=== PATIENT | female | born 1960 | race Caucasian/White ===

== ENCOUNTER 2018-07-29 13:39 | Outpatient (CLI) | payer OTHER, SELFPAY ==
--- NOTE | 2018-07-29 13:33 | DI.US_ITS ---
SYMPTOMS/DIAGNOSIS: LOCALIZED SWELLING LLL, R22.4, H/O VARICOSE VEINS, SUPERFICIAL THROMBOPHLEBITIS DUPLEX VENOUS ULTRASOUND LEFT LOWER EXTREMITY: The examination is compared with previous examination of 01/19/18 which showed a superficial vein in the lateral calf to contain thrombus. No DVT identified on the previous exam. The findings on today's examination are unchanged with a visible lateral lower leg superficial thrombus and no evidence of deep venous thrombosis of the thigh or leg.
== END 2018-07-29 13:59 ==
PROVIDERS: PCP Nurse Practitioner Primary Care; Visit Provider Nurse Practitioner
DX: R22.42 Localized swelling, mass and lump, left lower limb (principal); I82.812 Embolism and thrombosis of superficial veins of left lower extremity; Z86.718 Personal history of other venous thrombosis and embolism
CPT/HCPCS: 93971

== ENCOUNTER 2018-08-19 00:37 | Outpatient (CLI) | payer OTHER, SELFPAY ==
--- NOTE | 2018-08-19 07:39 | DI.MAMMO_ITS ---
SYMPTOM/DIAGNOSIS: SCREENING, Z12.31, HEALTH MAINTENANCE, Z00.00 MAMMOGRAMS: Mammograms were interpreted according to the usual protocol including computer analysis with CAD system, tomosynthesis and C view imaging. Comparison with prior examinations. Breast density B. No masses or microcalcifications are seen. There is nothing to suggest malignancy. IMPRESSION: Negative mammogram. Routine screening is recommended. Category I. MQSA ASSESSMENT OF FINDINGS: Negative. Category 1. Patient will receive a letter notifying them of these results. BI-RADS category B. There are scattered areas of fibroglandular density.
== END 2018-08-19 00:57 ==
PROVIDERS: PCP Nurse Practitioner Primary Care; Visit Provider Nurse Practitioner
DX: Z12.31 Encounter for screening mammogram for malignant neoplasm of breast (principal); Z00.00 Encounter for general adult medical examination without abnormal findings
CPT/HCPCS: 77063; 77067

== ENCOUNTER 2018-10-14 06:05 | Day surgery (SDC) | payer OTHER, SELFPAY ==
[2018-10-14 06:19] VITALS: BP 126/84; PULSE 85; RESP 16; TEMP 36; O2SAT 97
[2018-10-14] MEDS: Lactated Ringers 1,000 ML 30 ML IV (06:38)
--- NOTE | 2018-10-14 07:17 | W.COLOREPORT ---
Date of service: 10/14/18 Time of Service: 07:30 Colonoscopy Report Date of procedure: 10/14/18 Pre-op diagnosis general: Colon Cancer Screening Post-op diagnosis procedure note: same Procedure: Colonoscopy Surgeon: Misti Machado Anesthesia proc note operative: MAC (Jazmin Dixon, IVORY/ ASA 3) Estimated blood loss (mL): 0 Pathology: none sent Complications: None Disposition: same day Indications: Mrs. Shah is a pleasant 58 year old female who was seen in the office for her first colonoscopy. Risks, benefits and complications have been reviewed. Complications include but are not limited to bleeding, pain, perforation, missed small lesion/polyp, sore throat, aspiration and adverse reaction to the medications. Questions were entertained and answered to their satisfaction and they wished to proceed. No guarantees were given or implied. Prep: Miralax/Dulcolax Procedure Start Time: 07:23 Procedure End Time: 07:45 Retraction Time: 15 minutes Findings: Normal Colonoscopy Procedure Description: After informed consent was obtained the patient was taken to the procedure room and placed in a left decubitous position. Monitors were applied and a time out was done. The patients name, date of , procedure, allergies to medications and metal in their body was reviewed. The patient was then sedated. Once sedated and comfortable a rectal exam was done. External exam was normal. Internal exam revealed a normal sphincter tone and no palpable masses. The scope was then introduced and retro-flexed. No internal hemorrhoids were identified. The scope was then advanced to the cecum without difficulty. The TI and appendiceal orifice were identified. The prep was good. The scope was then slowly retracted over 15 minutes back into the rectum. No polyps were identified. The scope was removed and the patient was woken up and taken back to Same day surgery in stable condition. The patient tolerated the procedure well and there were no immediate complications. Follow up: The patient should follow up in 10 years unless they develop changes in bowel habits or other new gastrointestinal complaints.
--- NOTE | 2018-10-14 07:18 | W.PM.DSUDISC ---
Discharge Plan Disposition Patient Disposition: HOME Condition: Good Discharge Details Reason For Visit: Colon Cancer Screening Attending Provider: Misti Machado Primary Care Provider: Loren Cortez Home Meds and New Rx's Prescriptions: Continued aspirin [Adult Aspirin Regimen] 81 mg tablet,delayed release (DR/EC) 81 mg PO DAILY RF: 0 Discontinued bisacodyl [Dulcolax (bisacodyl)] 5 mg tablet,delayed release (DR/EC) 5 mg PO ONCE Qty: 4 RF: 0 polyethylene glycol 3350 17 gram/dose powder 255 g PO ONCE Qty: 255 RF: 0 Discharge Instructions Instructions: Colonoscopy (DC) Additional Instructions: Findings: Normal Colonoscopy Follow up:10 years Please call if you develop: fevers >101.5 Nausea or Vomiting Abdominal pain that is not transient DAY SURGERY UNIT POST COLONOSCOPY INSTRUCTIONS 1. Because there will be medication in your system for the next 24 hours, you may feel a little sleepy. Your coordination will be affected. Therefore: a. Do not drive or operate dangerous equipment for 24 hours. b. Do not drink alcohol beverages for 24 hours (not even beer). c. Plan to go home and rest for the day. 2. Generally there are no restrictions on your activity after a day or so has gone by, but you may feel a bit fatigued for a few days. 3 After you arrive home you may have a light meal and return to a normal diet as you can tolerate it without feeling sick to your stomach. 4. After surgery, you may feel pain or discomfort. This should be only transient, but if it persists please contact your doctor. 5. If there are any questions regarding the findings of your procedure, please feel free to contact your doctor. 6. If you are unable to contact your doctor with a problem, contact the hospital at [phone]. 7. Continue all your regular medications unless directed otherwise. I understand the above instructions and have no questions. Signature of Patient or Responsible Adult Escort Date/Time Name of Responsible Adult Escort Signature of Nurse Date/Time Activity:: Activity as Tolerated Diet:: As Tolerated Discharge Orders Discharge Orders: Discharge Order (Routine); Ordered 10/14/18 Ordered By: Misti Machado DS: Diagnosis Discharge Diagnosis (1) S/P colonoscopy: Status: Acute
[2018-10-14 08:35] VITALS: BP 104/58; PULSE 65; RESP 16; TEMP 36; O2SAT 98
== END 2018-10-14 09:10 | disposition home or self-care (01) ==
PROVIDERS: PCP Nurse Practitioner; Visit Provider Surgery
PROC: 0DJD8ZZ Inspection of Lower Intestinal Tract, Via Natural or Artificial Opening Endoscopic (ICD-10-PCS; CPT 45378; principal; 2018-10-14 07:30)
DX: Z12.11 Encounter for screening for malignant neoplasm of colon (principal); Z85.820 Personal history of malignant melanoma of skin
CPT/HCPCS: 45378; J2405

== ENCOUNTER 2020-07-23 00:47 | Outpatient (CLI) | payer OTHER, SELFPAY ==
--- NOTE | 2020-07-23 | DI.MAMMO_ITS ---
EXAM: MAMMO SCREENING CLINICAL HISTORY: SCREENING,Z12.31 TECHNIQUE: Mammograms were interpreted according to the usual protocol including computer analysis w [employer] CAD system, tomosynthesis and C-view imaging. COMPARISON: 2010 through 2017 FINDINGS: The breasts are composed of scattered fibroglandular densities, Breast Density category B. No suspicious masses or suspicious microcalcifications are seen. No skin thickening or abnormal axillary lymph nodes are seen. Surgical clips are noted in the left a xilla. There has been no significant change from prior exams. IMPRESSION: BI-RADS Category 1, Negative mammogram Yearly screening mammography is recommended. Breast Density - Category B, scattered fibroglandular densities. A negative radiographic report should not delay biopsy if a dominant or clinically suspicious mass is present. Up to ten percent of cancers are not identified on mammography. A negative report may reinforce clinical impression. Adenosis and dense breasts may obscure an underlying neoplasm. False positive reports average 6 to 10%. Patient will receive a letter notifying them of these results.
== END 2020-07-23 01:07 ==
PROVIDERS: PCP Nurse Practitioner Family; Visit Provider Nurse Practitioner Family
DX: Z12.31 Encounter for screening mammogram for malignant neoplasm of breast (principal)
CPT/HCPCS: 77063; 77067

== ENCOUNTER 2021-01-24 12:21 | Emergency (ER) | payer OTHER, SELFPAY ==
[2021-01-24] VITALS (20 sets, daily range): BP systolic 95–135; BP diastolic 40–75; PULSE 59–69; RESP 15–25; TEMP 36.2–36.4; O2SAT 95–99
--- NOTE | 2021-01-24 12:30 | RT.EKG_ITS ---
APPROVED REPORT Exam: Resting ECG Patient Location: E HR:62 bpm ECG Measurements Heart Rate 62 AXIS NE 123 P 46 QRSd 88 QRS 38 QT 415 T 33 QTc 420 Conclusion Sinus rhythm...normal P axis, V-rate 60- 99 I have reviewed and interpreted ECG and agree with software generated interpretation.
--- NOTE | 2021-01-24 13:04 | ED.GENADUL_ITS ---
Discharge Plan Disposition Patient Disposition: HOME Condition: Stable Discharge Details Clinical Impression: Generalized weakness, Vomiting, Fatigue, COVID-19, Hypokalemia Primary Care Provider: Shana Timmons ED Provider: Nathalie Orozco Home Meds and New Rx's Prescriptions: New ondansetron 4 mg tablet,disintegrating 4 mg PO TID PRN (Reason: nausea and vomiting) Qty: 6 RF: 0 Continued aspirin [Adult Aspirin Regimen] 81 mg tablet,delayed release (DR/EC) 81 mg PO DAILY RF: 0 acetaminophen [Tylenol] 325 mg Tablet 650 RF: 0 Discharge Instructions Instructions: Viral Syndrome (ED), Weakness (ED), Fatigue (ED) Additional Instructions: Drink plenty of fluids and get plenty of rest. Alternate tylenol and motrin as needed and directed for pain. Your prescription has been sent electronically to your pharmacy. Call the pharmacy to make sure your prescription is ready before pickup. Take the prescription as directed. Follow-up with your primary care doctor in 1 week. Return to the emergency department with any worsening or new concerning symptoms. Discharge Data Discharge Date/Time-TO BE ENTERED AT DEPARTURE: 01/24/21 16:17 Discharge Physician: Nathalie Orozco Medical Decision Making 60-year-old female with no significant history with recent diagnosis of COVID-19 8 days ago presents to the ED with weakness, vomiting and generalized fatigue. She denies any fever, cough, chest pain, shortness of breath. Vitals within normal limits on arrival. She is afebrile and appears fatigued but nontoxic. Due to her report of vomiting and weakness, will place an IV, bolus IV fluids, screening labs, Zofran, IV Tylenol and reassess. As she has normal oxygen saturation and has no complaint of shortness of breath, do not see indication for chest x-ray or other imaging. Labs reviewed. Normal white blood cell count. Potassium 2.8, will replete with p.o. and IV. Troponin negative. Patient reassessed and she feels much better and she is requesting to go home. A prescription for Zofran was sent electronically to her pharmacy. Advised to follow up with the primary care doctor for re-evaluation. Usual and customary return precautions given prior to discharge. Medical Records Medical records reviewed: Yes I reviewed the patient's medical records. Lab Data Lab results reviewed: Yes I reviewed the patient's lab results. Labs: Laboratory Tests Range/Units 01/24/21 01/24/21 01/24/21 12:50 12:50 12:50 WBC (4.4-10.8) 10^3/uL 6.73 RBC (3.93-5.22) 10^6/uL 4.25 Hgb (11.2-15.7) g/dL 12.4 Hct (36.0-46.0) % 36.8 MCV (80-95) fL 86.6 MCH (27.0-33.0) pg 29.2 MCHC (32.0-36.0) % 33.7 RDW (11.7-14.6) % 12.3 Plt Count (130-400) 10^3/uL 295 MPV (8.0-11.0) fL 10.9 Immature Gran % 0.0 Neutrophils % 81.0 Lymphocytes % 14.0 Atypical Lymphs % 2 Monocytes % 3.0 Eosinophils % 0.0 Basophils % 0.0 Nucleated RBC % % 0 Absolute Neutrophils (1.2-6.7) 10^3/uL 5.45 Absolute Lymphocytes (1.2-3.4) 10^3/uL 1.08 L Absolute Monocytes (0.1-0.8) 10^3/uL 0.20 Absolute Eosinophils (0.0-0.7) 10^3/uL 0.00 Absolute Basophils (0.0-0.2) 10^3/uL 0.00 RBC Morphology Normal PT (9.3-11.0) sec 10.1 INR (0.9-1.1) 1.0 APTT (21.0-27.5) sec 24.3 Sodium (136-145) mmol/L 138 Potassium (3.5-5.1) mmol/L 2.8 L* Chloride (98-107) mmol/L 100 Carbon Dioxide (21.0-32.0) mmol/L 25.3 Anion Gap (3-11) mmol/L 12.7 H BUN (7-18) mg/dL 15 Creatinine (0.55-1.02) mg/dL 1.1 H Estimated GFR/1.73 m2 (mL/min/1.73m2) 50.67 Glucose (74-106) mg/dL 103 Calcium (8.5-10.1) mg/dL 8.8 Magnesium (1.8-2.4) mg/dL 2.1 Total Bilirubin (0.2-1.0) mg/dL 0.5 AST (15-37) U/L 27 ALT (14-59) U/L 29 Alkaline Phosphatase (46-116) U/L 73 Troponin I (<0.06) ng/mL < 0.05 Total Protein (6.4-8.2) g/dL 7.5 Albumin (3.4-5.0) g/dL 3.2 L HPI General Mode of arrival: ambulatory . Date/Time Provider Initiated Documentation: 01/24/21 12:43 . Limitations to Documentation: no limitations . Information obtained by: patient . HPI Narrative: Pt is a 60yo F diagnosed with COVID-19 last week who presents to the ED w/ a c/o fatigue, generalized weakness and vomiting for the past few days. Pt states she works at a local [employer] and states they do not wear masks while working together and states there was an outbreak of COVID there and she was tested and noted to be positive on 01/16/21. Pt states her first symptoms were fatigue and weakness. She states she has been vomiting a few times daily for the past few days. She denies any known fever, cough, shortness of breath, chest pain, abdominal pain, diarrhea, loss of sense of smell or taste. Pt was brought here by her . Related Data Home Medications Medication Instructions Recorded Confirmed aspirin 81 mg tablet,delayed 81 mg PO DAILY 08/03/18 01/24/21 release acetaminophen [Tylenol] 650 01/24/21 ondansetron 4 mg PO TID PRN #6 tab 01/24/21 Previous Rx's Medication Instructions Recorded ondansetron 4 mg PO TID PRN #6 tab 01/24/21 Allergies Allergy/AdvReac Type Severity Reaction Status Date / Time No Known Allergies Allergy Verified 01/24/21 12:39 General Stated Complaint: GenMedical JOSH: 2 Review of Systems All systems reviewed & are unremarkable except as noted in HPI and below Constitutional Constitutional: Reports as per HPI, Denies chills, Reports fatigue, Denies fever(s), Reports poor appetite and Reports weakness Eyes Eyes: Denies blurry vision ENT Ears, Nose, Mouth, and Throat: Denies dizziness, Denies sore throat and Denies throat swelling Cardiovascular Cardiovascular: Denies chest pain and Denies dyspnea Respiratory Respiratory: Denies cough and Denies dyspnea Gastrointestinal Gastrointestinal: Denies abdominal pain, Denies diarrhea and Reports vomiting Genitourinary Genitourinary: Denies hematuria and Denies dysuria Musculoskeletal Musculoskeletal: Denies back pain and Denies numbness Integumentary/Breasts Skin/Breast: Denies lesions and Denies rash Neurologic Neurologic: Denies dizziness, Denies localized weakness, Denies numbness and Reports weakness Endocrine Endocrine: Reports fatigue Allergic/Immunologic Allergic/Immunologic: Denies throat swelling [facility] Medical History (Updated 01/24/21 @ 15:58 by Nathalie Orozco DO) History of melanoma Obesity Varicose veins of left leg with edema Surgical History (Updated 10/14/18 @ 07:52 by Misti Machado MD) S/P colonoscopy (~10/14/18) Social History (Updated 09/16/18 @ 09:58 by Latha Jacob RN) Smoking/Tobacco Use Status: Never Smoking risk assessment performed?: Yes Alcohol Intake: current Alcohol Intake frequency: holidays/special occasions only Alcohol type: wine Drug use: Never Substance use type: does not use Do you feel safe at home: Yes Do you feel safe in your relationship?: Yes Exam Const General: cooperative and no acute distress HENMT Head: normal to inspection Face and sinus: normal facial exam Eyes General: appearance normal, both eyes and all related structures EOM: EOM intact bilaterally Neck Neck: normal visual inspection and No submandibular swelling Lymphatic: no lymphadenopathy noted Chest Chest: normal inspection of the chest and no tenderness Resp Effort & Inspection: normal respiratory effort and able to speak in complete sentences Auscultation: clear to auscultation bilaterally Cardio Rate: regular rate Rhythm: regular rhythm GI Inspection: normal to inspection Palpation: soft, not firm, not rigid and nontender Auscultation: normal bowel sounds Skin General skin exam: no rashes or lesions noted Neuro General: patient alert, patient awake and patient oriented x3 Cognition: normal cognition Speech: speech normal Motor: muscle tone normal throughout Sensory Exam: no sensory deficits noted Extrem General: normal to inspection, full ROM, capillary refill normal, no calf tenderness bilaterally and no edema Psych Appearance: grossly normal Mental Status: mental status grossly normal Speech and Movement: speech and movement normal Affect: normal affect Course Vital Signs Vital signs: Vital Signs Temperature 97.5 F L 01/24/21 12:34 Pulse 65 01/24/21 12:34 Respiratory Rate 18 01/24/21 12:34 Blood Pressure 105/65 01/24/21 12:34 Pulse Oximetry 97 01/24/21 12:34 Temperature 97.5 F L 01/24/21 12:34 Temperature Source Skin 01/24/21 12:34 Pulse 65 01/24/21 12:34 Respiratory Rate 18 01/24/21 12:34 Respiratory Effort Non-Labored 01/24/21 12:42 Respiratory Depth Normal 01/24/21 12:42 Respiratory Pattern Normal 01/24/21 12:42 Blood Pressure 105/65 01/24/21 12:34 Blood Pressure Position Supine 01/24/21 12:34 Pulse Oximetry 97 01/24/21 12:34 Oxygen Delivery Method Room Air 01/24/21 12:34 Oxygen Flow Rate 0 01/24/21 12:34 Pain Level 0 01/24/21 12:34
[2021-01-24] MEDS: Normal Saline 1,000 ML 1000 ML IV ×2 (13:10→13:49)
[2021-01-24 13:19] LABS: Abs Immature Grans 0.04 10^3/uL (0.0-0.06); HCT 36.8 % (36.0-46.0); HGB 12.4 g/dL (11.2-15.7); MCH 29.2 pg (27.0-33.0); MCHC 33.7 % (32.0-36.0); MCV 86.6 fL (80-95); MPV 10.9 fL (8.0-11.0); Nucleated RBC 0 %; Platelet Count 295 10^3/uL (130-400); RBC 4.25 10^6/uL (3.93-5.22); RDW 12.3 % (11.7-14.6); RDW-SD 39.3 fL; WBC 6.73 10^3/uL (4.4-10.8)
[2021-01-24 13:29] LABS: ALT 29 U/L (14-59); AST 27 U/L (15-37); Albumin 3.2 g/dL (3.4-5.0); Alkaline Phosphatase 73 U/L (46-116); Anion Gap 12.7 mmol/L (3-11); BUN 15 mg/dL (7-18); Bilirubin, Total 0.5 mg/dL (0.2-1.0); CO2 25.3 mmol/L (21.0-32.0); CREATININE 1.1 mg/dL (0.55-1.02); Calcium 8.8 mg/dL (8.5-10.1); Chloride 100 mmol/L (98-107); Estimated GFR 50.67 (mL/min/1.73m2); Glucose 103 mg/dL (74-106); Magnesium 2.1 mg/dL (1.8-2.4); Sodium 138 mmol/L (136-145); Total Protein 7.5 g/dL (6.4-8.2)
[2021-01-24 13:32] LABS: Absolute Lymphocyte Count 1.08 10^3/uL (1.2-3.4); Absolute Neutrophil Count 5.45 10^3/uL (1.2-6.7); Atypical Lymphocytes % 2
[2021-01-24 13:33] LABS: Diff Comment Manual Differential; Potassium 2.8 mmol/L (3.5-5.1); RBC Morphology Normal
[2021-01-24 13:34] LABS: Troponin I < 0.05 ng/mL (<0.06)
[2021-01-24] MEDS: ACETAMINOPHEN 1,000 MG/100 ML BTL 400 MG IVPB (13:49)
[2021-01-24] MEDS: Potassium Chloride 20 MEQ TABCR 40 MEQ PO (13:51)
[2021-01-24 13:53] LABS: PTT Activated 24.3 sec (21.0-27.5); Prothrombin Time 10.1 sec (9.3-11.0)
[2021-01-24] MEDS: POTASSIUM CHLORIDE 20 MEQ/100 ML BAG 50 MEQ IVPB (14:00)
[2021-01-24] MEDS: Ondansetron 4 MG/2 ML VIAL IVP (14:01)
--- NOTE | 2021-01-24 14:53 | NUR.NOTE ---
pt took a anoop Fonseca wellNursing Note:
== END 2021-01-24 16:17 | disposition home or self-care (01) ==
PROVIDERS: Emergency Provider Physician Assistant; PCP Nurse Practitioner Family
DX: U07.1 COVID-19 (principal); R11.10 Vomiting, unspecified; E87.6 Hypokalemia; R53.1 Weakness
CPT/HCPCS: 80053; 93005; 96365; 96375; 99284; 83735; 84484; 85025; 85610; 85730; 93010; J0131; J2405; J3480

== ENCOUNTER 2022-04-03 09:32 | Outpatient (REF) | payer OTHER, SELFPAY ==
--- NOTE | 2022-04-03 08:30 | PAPFT_PTH ---
PATIENT: Rosa Shah LOC: [facility] U#:[id number] AGE/SX: 61/F ROOM: RE04/03/[address]: MILADYS Solitario : 1960 BED: DIS: 04/03/2022 SPEC #: [id number] RECD: 04/03/22 12:02 STATUS: CRESCENCIO REGuido #: [id number] YAHIR: 04/03/22 08:[address]: Kerry Clancy DEPT: [facility] Cytology RECD BY: Raven Baez ENTERED: 04/03/22 12:03 SP TYPE: PAPFT OTHR DR: Shana Timmons Tissues: 1 - CX/ENDOCX FOR PAP SMEARS Procedures: PAP THIN PREP/UVM Screening HPV DNA PROBE Comments: [id number]
== END 2022-04-03 09:33 | disposition home or self-care (01) ==
LOC: LBN 09:32
PROVIDERS: PCP Nurse Practitioner Family; Visit Provider Nurse Practitioner Family
DX: Z12.4 Encounter for screening for malignant neoplasm of cervix (principal)
CPT/HCPCS: 88142; 87624

== ENCOUNTER → 2022-05-08 00:36 | Outpatient (CLI) | payer OTHER, SELFPAY ==
--- OUTSIDE RECORDS SUMMARY | 2022-05-08 01:04 | XMS_ITS | Encounter Summary ---
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 Juan David Coleman MD [facility] Rad Ct Scan Procedures CT Chest Abdomen Pelvis w Contrast (Generic) [facility] HEMATOLOGY/[place] [address] [place] [address] Referral ID Status Reason Start Date Expiration Date Visits V isits Requested Authorized [id number] Closed Specialty 08/09/2020 02/05/2021 1 1 Service Requested Reason for Visit Diagnostic Test (Routine) - Closed Specialty Diagnoses / Procedures Referred By Contact Refer red To Contact Radiology Diagnoses Malignant melanoma of torso excluding breast 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 Juan David Coleman MD [facility] Rad Ct Scan Procedures CT Chest Abdomen Pelvis w Contrast (Generic) [facility] HEMATOLOGY/[place] [address] [place] [address] Referral ID Status Reason Start Date Expiration Date Visits V isits Requested Authorized [id number] Closed Specialty 08/09/2020 02/05/2021 1 1 Service Requested Encounter Details Date Type Department Care Team Description 08/13/[address] Scan at [facility] Juan David Coleman, Malignant melanoma of torso excluding breast; [facility] 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 documented as of this encounter Plan of Treatment Not on filedocumented as of this encounter Procedures Procedure Name Priority Date/Time Associated Diagnosis Comme nts CT CHEST ABDOMEN Routine 08/13/2020 10:19 AM Malignant melanom a Results for this PELVIS W CONTRAST EST of torso excluding proc edure are in (GENERIC) breast the results Metastatic melanoma section. to lymph node documented in this encounter Results CT Chest Abdomen Pelvis w Contrast (Generic) (08/13/2020 10:19 AM EST) Anatomical Region Laterality Modality Abdomen, Pelvis Computed Tomography Specimen (Source) Anatomical Location Collection Method / Collectio n Time Received Time / Laterality Volume Impressions 08/13/2020 10:44 AM EST Stable exam. No evidence of metastasis. Thank you for letting us participate in the care of this patient. For questions regarding this report, please contact e number below. ? Narrative 08/13/2020 10:44 AM EST EXAMINATION: CT CHEST ABDOMEN PELVIS W CONTRAST (GENERIC) CLINICAL HISTORY: Left lower back stage IIIa melanoma with microscopic left axillary lymph node, resected on , last CT scan on 08/14/2019 TECHNIQUE: Helical CT of the chest, abdo men, and pelvis was performed following the intravenous administration of contra st. 104 cc of Omnipaque 350. Oral contrast was administered. COMPARISON: 08/14/2019 FINDINGS: Chest: Lungs and large airways: No pulmonary no dules or areas of airspace consolidation Pleura: No effusion. Heart/vasculature: Normal. Bovine arch. Lymph nodes: No enlarged lymph nodes. St able surgical clips LEFT axilla Mediastinum and nagi: Normal. Abdomen/pelvis: Liver: Normal size and attenuation witho ut lesions. Bile ducts: Nondilated. Gallbladder: No calcified gallstones. No rmal caliber wall. Pancreas: Normal attenuation without angelica norah dilatation. Spleen: Normal. Adrenals: Normal. Kidneys: Symmetric enhancement. No colle cting system obstruction bilaterally. Urinary Bladder: Normal. Vasculature: No aneurysm. Lymph Nodes: ??No enlarged lymph nodes. Bowel: Nondilated, no wall thickening. ? ? Peritoneum and mesentery: No ascites, fr ee air, or loculated fluid collection. No mesenteric inflammation. Abdominal wall: No subcutaneous masses o r nodules Reproductive organs: No adnexal masses Osseous structures: No suspicious lesion s. Procedure Note Gio Denton MD - 08/13/2020Form atting of this note might be different from the original. EXAMINATION: CT CHEST ABDOMEN PELVIS W C ONTRAST (GENERIC) CLINICAL HISTORY: Left lower back stage IIIa melanoma with microscopic left axillary lymph node, resected on , last CT scan on 08/14/2019 TECHNIQUE: Helical CT of the chest, abdo men, and pelvis was performed following the intravenous administration of contra st. 104 cc of Omnipaque 350. Oral contrast was administered. COMPARISON: 08/14/2019 FINDINGS: Chest: Lungs and large airways: No pulmonary no dules or areas of airspace consolidation Pleura: No effusion. Heart/vasculature: Normal. Bovine arch. Lymph nodes: No enlarged lymph nodes. St able surgical clips LEFT axilla Mediastinum and nagi: Normal. Abdomen/pelvis: Liver: Normal size and attenuation witho ut lesions. Bile ducts: Nondilated. Gallbladder: No calcified gallstones. No rmal caliber wall. Pancreas: Normal attenuation without angelica norah dilatation. Spleen: Normal. Adrenals: Normal. Kidneys: Symmetric enhancement. No colle cting system obstruction bilaterally. Urinary Bladder: Normal. Vasculature: No aneurysm. Lymph Nodes: No enlarged lymph nodes. Bowel: Nondilated, no wall thickening. Peritoneum and mesentery: No ascites, fr ee air, or loculated fluid collection. No mesenteric inflammation. Abdominal wall: No subcutaneous masses o r nodules Reproductive organs: No adnexal masses Osseous structures: No suspicious lesion s. IMPRESSION Stable exam. No evidence of metastasis. Thank you for letting us participate in the care of this patient. For questions regarding this report, please contact e number below. 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 Secondary and unspecified malignant neop lasm of lymph nodes, site unspecified documented in this encounter Administered Medications Inactive Administered Medications - up to 3 most recent administrations Medication Order MAR Action Action Date Dose Rate Site iohexoL (Omnipaque) 350 mg/mL Given 08/13/2020 10:15 AM EST 104 mLs solution 0-200 mL 0-200 mL, Intravenous, ONCE PRN, 1 dose, Starting on Wed08/13/20 at 0956, Until Wed08/13/20 at 1015, Per Protocol, Warning Vesicant/Irritant Medication , Radiology Contrast, Routine iohexoL (Omnipaque) 350 mg/mL solution 0-50 Given 08/13/2020 9:56 AM EST 50 mLs mL 0-50 mL, Oral, ONCE PRN, 1 dose, Starting on Wed08/13/20 at 0956, Until Wed08/13/20 at 0956, Per Protocol, Warning Vesicant/Irritant Medication , Radiology Contrast, Routine documented in this encounter Care Teams Wire Steward Relationship Specialty Start Date End Date Loren Cortez APRN PCP - General Family Medicine 05/06/17 [address] [place] [address] documented as of this encounter
--- OUTSIDE RECORDS SUMMARY | 2022-05-08 01:04 | XMS_ITS | Encounter Summary ---
:1960 Author Organization [facility] [place] [address] Care Team Providers Name Role Phone Loren Cortez DIGITAL PRODUCTION ARTIST Primary Care Provider [phone] Encounter Details Date Type Department Care Team Description 08/13/2020 Hospital Encounter Hematology and Maligna nt melanoma of Oncology at [facility] [place] [phone] Social History Tobacco Use Types Packs/Day Years [...] encounter Procedures Procedure Name Priority Date/Time Associated Comments Diagnosis HEMOGRAM STAT 08/13/2020 8:10 AM Malignant melanoma Res ults for this EST of torso excluding procedure are in breast the results section. DIFFERENTIAL, STAT 08/13/2020 8:10 AM Malignant melanoma Re sults for this AUTOMATED EST of torso excluding procedure are in breast the results section. HC CBC,PLT & AUTO DIFF STAT 08/13/2020 8:10 AM Malignant me lanoma EST of torso excluding breast HC VENIPUNCTURE STAT 08/13/2020 8:10 AM Malignant melanoma Results for this EST of torso excluding procedure are in breast the results section. COMPREHENSIVE STAT 08/13/2020 8:10 AM Malignant melanoma Re sults for this METABOLIC PANEL EST of torso excluding proced ure are in (NON-FASTING) breast the results section. documented in this encounter Results (ABNORMAL) Differential, Automated (08/13/2020 8:10 AM EST) [facility] gist Method Time Signature Neutrophils % 48.6 % [facility] Neutr Abs (ANC) 2.46 1.70 - [facility] 6.10 [facility] x10(3)/[facility] LABORATORY Lymphocytes % 44.0 % [facility] Lymphocytes Abs 2.2 0.9 - 3.2 [facility] x10(3)/[facility] LABORATORY Monocytes % 5.0 % [facility] Monocyte Abs 0.2 (L) 0.3 - 0.9 [facility] x10(3)/[facility] LABORATORY Eosinophils % 1.6 % [facility] Eosinophils Abs 0.1 0.0 - 0.4 [facility] x10(3)/[facility] LABORATORY Basophils % 0.6 % [facility] Basophils Abs 0.0 0.0 - 0.1 [facility] x10(3)/[facility] LABORATORY Immature Gran % 0.20 % [facility] Comment: Immature granulocytes(IG's)percentage an d absolute count will include metamyelocytes, myelocytes, and promyelo cytes. Blood smears from CBCs yielding IG's will be scanned manually for concor dance. If this scan disagrees with the automated IG or if promyelocytes are not ed, a manual differential will be performed. Ekaterina Gran Abs 0.01 0.00 - 0.04 x10(3)/[facility] Specimen Anatomical Collection Method Collection Time Receive d Time (Source) Location / / Volume Laterality Blood specimen 08/13/2020 8:10 AM 020 8:19 (specimen) EST AM EST Resulting Agency Comment Spec In Lab Juan David Coleman MD HEMATOLOGY ORDERABLES Performing Organization Address City/State/ZIP Code [place] [address] Hemogram (08/13/2020 8:10 AM EST) athologist Signature WBC 5.0 4.0 - 9.5 [facility] x10(3)/[facility] LABORATORY RBC 4.04 4.00 - [facility] 5.21 [facility] x10(6)/[facility] LABORATORY Hemoglobin 12.1 11.7 - [facility] 15.5 gm/dL [facility] Hematocrit 36.9 35.7 - [facility] 45.8 % [facility] MCV 91.3 82.6 - [facility] 94.4 [facility]OR[facility] MCH 30.0 27.1 - [facility] 32.0 pg [facility] MCHC 32.8 31.7 - [facility] 35.[facility] gm/dL [facility] Platelets 297 145 - 357 [facility] x10(3)/[facility] LABORATORY RDWSD 42.8 37.0 - [facility] 46.0 [facility] LAB[facility] RDWCV 12.8 11.5 - [facility] 14.1 % [facility] MPV 10.2 7.6 - 12.9 [facility] LABORATORY nRBC % Auto 0.0 % [facility] nRBC Abs Auto 0.000 0.000 - [facility] 0.000 [facility] x10(3)/[facility] LABORATORY Specimen Anatomical Collection Method Collection Time Receive d Time (Source) Location / / Volume Laterality Blood specimen 08/13/2020 8:10 AM 020 8:19 (specimen) EST AM EST Resulting Agency Comment Spec In Lab Juan David Coleman MD HEMATOLOGY ORDERABLES Performing Organization Address City/State/ZIP Code Phon e Number [facility] [place] [address] Comprehensive metabolic panel (non-fasting) (08/13/2020 8:10 AM EST) athologist Signature Glucose Lvl 96 65 - 199 [facility] mg/dL [facility] Comment: Diabetes: >=200 mg/dL plus symp toms BUN 14 8 - 18 mg/dL [facility] Creatinine 0.90 0.70 - 1.20 mg/dL [facility] Sodium 143 135 - 145 mmol/L [facility] Potassium 3.7 3.5 - 5.0 mmol/L [facility] Comment: Please note: ??Patients with WBC >100,00 0 may have falsely elevated Potassium levels. ??For accurate Potassium quantif ication in these patients send serum separator tube (gold top) for subsequent determinations. ??Contact the Clinical Chemistry Laboratory if there are any qu estions. Chloride 107 98 - 107 mmol/L [facility] CO2 26 22 - 31 mmol/L [facility] Anion Gap 10 5 - 15 mmol/L [facility] Calcium 9.4 8.5 - 10.5 mg/dL [facility] Total Protein 7.2 6.1 - 8.0 gm/dL [facility] Albumin 4.6 3.2 - 5.2 gm/dL [facility] AST 17 0 - 30 unit/L [facility] ALT 13 0 - 30 unit/L [facility] Alk Phos 83 35 - 105 unit/L [facility] Total Bilirubin 0.4 0.2 - 1.3 mg/dL [facility] Estimated GFR 70 >=60 mL/min/1.73 m?? [facility] Comment: The eGFR was calculated using the CKD-EP I equation. As with all creatinine based estimates of kidney function, eGFR values calculated with the CKD-EPI equation are not accurate in patients wi th acute kidney failure, extremes of body mass or the acutely ill. [email or web address] eGFR 81 >=60 mL/min/1.73 m?? [facility] Comment: The eGFR was calculated using the CKD-EP I equation. As with all creatinine based estimates of kidney function, eGFR values calculated with the CKD-EPI equation are not accurate in patients wi th acute kidney failure, extremes of body mass or the acutely ill. [email or web address] Specimen Anatomical Collection Method Collection Time Receive d Time (Source) Location / / Volume Laterality Blood specimen 08/13/2020 8:10 AM 020 8:19 (specimen) EST AM EST Resulting Agency Comment Spec In Lab Juan David Coleman MD CHEMISTRY ORDERABLES Performing Organization Address City/State/[place] [address] Lactate Dehydrogenase (08/13/2020 8:10 AM EST) P athologist Signature LDH 217 110 - 220 [facility] unit/L [facility] Specimen Anatomical Collection Method Collection Time Receive d Time (Source) Location / / Volume Laterality Blood specimen 08/13/2020 8:10 AM 020 8:19 (specimen) EST AM EST Resulting Agency Comment Spec In Lab Juan David Coleman MD CHEMISTRY ORDERABLES Performing Organization Address City/[facility]/[place] [address] documented in this encounter Visit Diagnoses Diagnosis Malignant melanoma of torso excluding br east documented in this encounter Care Teams Electrical Equipment Technician Relationship Specialty Start Date End Date Loren Cortez APRN PCP - General Family Medicine 05/06/17 [address] [place] [address] documented as of this encounter
--- OUTSIDE RECORDS SUMMARY | 2022-05-08 01:04 | XMS_ITS | Encounter Summary ---
:1960 Author Organization [facility] [place] [address] Care Team Providers Name Role Phone Loren Cortez MARINE Primary Care Provider [phone] Reason for Visit Reason Comments Follow-up Encounter Details Date Type Department Care Team Description 10/20/2018 Office Visit General Surgery at [facility] melanoma, [facility] B, MARINE unspecified site [facility] [address] [place] [facility] [address] [place] [address] [phone] (Wo rk) Social History Tobacco Use Types Packs/Day Years Used Date Never Smoker Smokeless Tobacco: Never Used Alcohol Use Standard Drinks/Week Comments Yes 1 (1 standard drink = 0.6 oz pure alcoho l) Sex Assigned at Date Recorded Not on file documented as of this encounter Progress Notes [facility] APRN - 10/20/2018 11:45 AM EST Surgical Oncology Melanoma FOllow Up Visit Dx: left back melanoma Date of surgery: 06/10/17 Procedure: WLE, tissue transfer, SLNB to left axilla Complications: None Drains: NA Removed: NA Path: 05/06/17 Shave biopsy mid back Malignant Melanoma, superficial spreading type Thickness 1.48 mm. Ulceration was not identified The lesion had 6 mitoses per mm2. Peripheral margin was negative. Deep margin was negative ?? 06/10/17 WLE and SLNB: A. Left mid back melanoma, excision: - Negative for residual melanoma - Dermal scar and procedure site changes B. Left axillary sentinel node #1: - Rare enlarged [id number] intraparenchymal cells suspicious for ??micrometastatic melanoma C. Left axillary sentinel node #2: - One lymph node negative for melanoma (0/1) D. Left axillary sentinel node #3: - One lymph node negative for melanoma (0/1) History of Present Illness: Rosa Shah is here for routine follow up for stage IIIA melanoma. She reports overall doing well since surgery. She has had routine skin exams with Dr Franco but hasn't seen her in a while due to scheduling conflicts. She is followed by Dr Coleman who she sees in February with a PET/CT. No new nodules, lumps or bumps. She did develop a superficial thrombophlebitis on her left LE, seen by vascular, using asa and compression Overall feels well. No new DUMONT, CP, or SOB, cough, abd pain or blood in the stool. No new bony pain or tenderness. PE: Appears well. She has a well-healed incision on the left back. No erythema. No swelling.No nodules or worrisome skin lesions. Left axilla well well healed incision. No seroma. No palpable LNs in the neck, axilla,popliteal or inguinal areas. Left axillary US today: There are two small lymph nodes seen in the left axilla with sonographically benign features. No lymph nodes with sonographically worrisome features are seen. Assessment: Rosa Shah is a 58 y.o. year old female with no significant PMH with malignant melanoma superficial spreading type of the left mid-back, 1.48 mm thickness, non-identifed ulceration, 6 mitoses per mm2 s/p WLE and SLNB which mapped to left axilla with 1+ SLN ([id number] per AJCC TNM staging, 7th edition). Path stage IIIA. No evidence of recurrence on exam or Ultrasound imaging today. We discussed the risk of recurrence and the importance of skin exams and ultrasound surveillance. I educated the patient on self lymph node basin exams as well. Plan: - We will see her in 4 months (February 2019) with surveillance axillary US - Full skin checks by dermatology Q3-6mths - Medical oncology follow up - Dr Coleman (February 2019) - CT/PET imaging per Dr Coleman (February 2019) documented in this encounter Plan of Treatment Not on filedocumented as of this encounter Visit Diagnoses Diagnosis Malignant melanoma, unspecified site documented in this encounter Care Teams Flatwork Ironer Relationship Specialty Start Date End Date Loren Cortez APRN PCP - General Family Medicine 05/06/17 [address] [place] [address] documented as of this encounter
--- OUTSIDE RECORDS SUMMARY | 2022-05-08 01:04 | XMS_ITS | Encounter Summary ---
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 Marley Encarnacion MD [facility] Rad Nuclear Med Procedures PET CT Standard Plus Extremities & Head [facility] HEMATOLOGY/[place] [address] [place] [address] Referral ID Status Reason Start Date Expiration Date Visits V isits Requested Authorized [id number] Denied Specialty 08/17/2018 08/17/2019 1 0 Service Requested Reason for Visit Reason Comments Follow-up Encounter Details Date Type Department Care Team Description 08/09/2018 Office Visit Hematology and Marley Encarnacion Malignant melanoma of torso excluding breast (Primary Dx); Oncology at [facility] Malignant melanoma metastatic to lymph n ode [facility]ug[facility] HEMATOLOGY/ONCOLOG [id number] Y DEPT [phone] [place], [place] [address] Social History Tobacco Use Types Packs/Day Years Used Date Never Smoker Smokeless Tobacco: Never Used Alcohol Use Standard Drinks/Week Comments Yes 1 (1 standard drink = 0.6 oz pure alcoho l) Sex Assigned at Date Recorded Not on file documented as of this encounter Last Filed Vital Signs Vital Sign Reading Time Taken Comments Blood Pressure 133/77 08/09/2018 3:36 PM EST Pulse 70 08/09/2018 3:36 PM EST Temperature 36.9 ??C (98.4 ??F) 08/09/2018 3:36 PM EST Respiratory Rate 18 08/09/2018 3:36 PM EST Oxygen Saturation 96% 08/09/2018 3:36 PM EST Inhaled Oxygen Concentration - - Weight 94 kg (207 lb 3.7 oz) 08/09/2018 3:36 PM EST Height 165.5 cm (5' 5.16) 08/09/2018 3:36 PM EST Body Mass Index 34.32 08/09/2018 3:36 PM EST documented in this encounter Progress Notes Vicky Stanford MD - 08/09/2018 4:00 PM EST Images from the original note were not included. [facility] NOTE REFERING PHYSICIAN: Dr. 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 (1.48 mm, no ulceration, 6 mitotic index ) N1a (1 out of 3 lymph nodes contained several IHC positive cells Melan-A/HMB 45) PATH: BRAF mutation V600E positive CURRENT TX: Active surveillance Status post wide local excision and sentinel lymph node biopsy on 06/10/2017 ONCOLOGIC HX: Lifelong mole on her left lower back In November 2016 Noticed change in color, darker and become elevated Seen by assistant scientist in February 2017, no bleeding no itching No significant change in her activity level, no weight loss Biopsy on 05/06/2017 was consistent with melanoma T2a (1.48 mm, 6 mitosis no ulceration) Wide local excision and sentinel node biopsy on 06/10/2017 revealed N1a (1 out of 3 lymph nodes contained several IHC positive cells Melan-A/HMB 45) The patient was referred to melanoma clinic on 07/09/2017 to discuss follow-up options. PET/CT scan on 08/17/2017 and brain MRI on 08/17/2017 was negative for evidence of metastases Ultrasound on 06/10/2018 was negative for suspicious lymph node Chest abdomen pelvic CT scan on 08/09/2018 was negative for obvious disease recurrence HPI: Mrs. Shah is a 58 years old lady with the above medical history referred to melanoma clinic on 07/09/2017 to discuss follow-up options for her stage IIIa left lower back melanoma. INTERVAL HISTORY: Patient is presenting to the office for follow up and discuss the results of her restaging CT. She noted that she is feeling well overall. However, she had symptoms of another phlebitis in summer(around ) and recently had an US doppler at [facility] which was negative for DVT. She denies any h/o DVTs or trauma to the LE. She has been taking aspirin since the first episode (January- February 2018). She noted that her energy level is alright. 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 Her appetite is good and her weight has increased by 5-7 lbs in the last 6 months. Denies any chest pain, SOB, cough, fever or chills, DUMONT, dizziness, abd pain, nausea/vomiting. . She is following with dermatology and surgery, last seen in January and June 2018 respectively. REVIEW OF SYSTEMS: Constitutional: No weight loss, no fever, no fatigue, No dizziness. No headache. Eyes: Negative, no visual change ENT: No hearing change Cardiovascular: Negative Respiratory: Negative Gastrointestinal: Negative, Genitourinary: Negative Musculoskeletal: No new joint pain Skin: No rashes Neurological: Negative, no focal weakness Psychiatric: stable mood PAST MEDICAL HISTORY: Past Medical History: Diagnosis Date ??? Melanoma 05/06/2017 left lower back ??? Melanoma of back 05/06/2017 ??? Phlebitis of superficial vein of left lower extremity 03/07/2018 Past Surgical History: Procedure Laterality Date ??? LEG SURGERY ??? ORTHOPEDIC SURGERY Age 3 - legs straightened - bilaterally ??? PRO ADJ TISS TRANSFER/REARRANGEMENT ANY AREA 30.1-60 SQCM Left 06/10/2017 ADJACENT TISSUE TRANSFER OR REARRANGEMENT; 30.1 TO 60.0 SQ CM, BACK (WRVU 12.65) performed by Syeda Nair MD at [facility] MAIN OR ??? PRO BX/REMV, LYMPH NODE, DEEP AXILL Left 06/10/2017 BIOPSY OR EXCISION OF LYMPH NODE(S), OPEN, DEEP AXILLARY NODE(S) (WRVU 6.43) performed by Syeda Nair MD at [facility] MAIN OR ??? PRO EXC SKIN MALIG 3.1-4CM TRUNK, ARM, LEG N/A 06/10/2017 EXC MALIGNANT LESION, MINGO 3.1 TO 4.0CM, TRUNK (WRVU 3.17) performed by Syeda Nair MD at [facility] MAIN OR ??? PRO INTRAOP SENTINEL LYMPH ID W/DYE INJECTION N/A 06/10/2017 INTRAOPERATIVE ID (MAPPING) SENTINEL LYMPH NODE,INCLUDES INJECTION (WRVU 2.5) performed by Syeda Nair MD at [facility] MAIN OR ??? TONSILLECTOMY MEDS: No current outpatient medications on file. No current facility-administered medications for this visit. ALLERGY: No Known Allergies FAMILY HX: No melanoma or any type of cancer No family history on file. SOCIAL HX: ETOH: Social Smoking: Never Social History Socioeconomic History ??? Marital status: Spouse name: Not on file ??? Number of children: 1 ??? Years of education: Not on file ??? Highest education level: Not on file Social Needs ??? Financial resource strain: Not on file ??? Food insecurity - worry: Not on file ??? Food insecurity - inability: Not on file ??? Transportation needs - medical: Not on file ??? Transportation needs - non-medical: Not on file Occupational History ??? Occupation: Accounts Receivable Tobacco Use ??? Smoking status: Never Smoker ??? Smokeless tobacco: Never Used Substance and Sexual Activity ??? Alcohol use: Yes Alcohol/week: 0.6 oz Types: 1 Glasses of wine per week ??? Drug use: Not on file ??? Sexual activity: Yes Other Topics Concern ??? Not on file Social History Narrative 1 daughter PHYSICAL EXAM: PS=0 General: not in acute distress. in good mood and spirits BP 133/77 (Patient Position: Sitting) Pulse 70 Temp 36.9 ??C (98.4 ??F) (Oral) Resp 18 Ht 165.5 cm (5' 5.16) Wt 94 kg (207 lb 3.7 oz) SpO2 96% BMI 34.32 kg/m?? Eyes: Not icteric, not injected Oral: clear. Neck: Supple. No lymphadenopathy. Lungs: Bilaterally clear to auscultation, No wheezing, No crackles Heart: Regular rate and rhythm. Abdomen: Soft, no tenderness, no mass, normal active bowel sounds. Extremities: No edema, there is a palpable lump on the left [place] associated with spiders and varicose veins which is stable (improved from before). She now has swelling on the anterior [place] which is new - mild erythema, tenderness and warmth. Skin: No rash, a small lump is noted on the right mid-back, that is stable Neuro: No focal weakness LABS: Unremarkable CBC with differential and CMP LDH 223 IMAGING STUDIES: CT C/A/P on 08/09/[address] evidence of local recurrence or thoracic, intra-abdominal or pelvic metastases. 02/17/2018 CT Scan: No local recurrence or metastasis. PET/CT scan on 08/17/2017 1. Mild postsurgical inflammatory changes in the left axilla and left lower back. 2. No distant metastases. Brain MRI on 08/17/2017 No sign of metastasis or other acute abnormality. ASSESSMENT AND PLAN: At least stage IIIa left lower back melanoma with IHC positive 1 out of 3 left axillary sentinel sentinel node resected on 06/10/2017, BRAF mutation V600E positive. Patient is doing well from the melanoma stand point with no concerns for disease based on her clinical history as well as today's restaging CT. She is now 1 year out from her resection, we discussed that we will continue with the restaging CT every 6 months for another year before spacing it out to yearly. In addition, we will continue to monitor the LN in the L axilla on the restaging CT alternating with US of the axilla (next US in Oct 2018). She has an appt with Dr. Nair on 10/10/18 with US of her L axilla on the same day. She will RTC in 6 months for follow with restaging PET/CT on the same day. For the thrombophlebitis on her L [place], we recommended that she continue to monitor it and possibly have her assistant scientist (Dr. Franco) evaluate it if it is persistent or getting worse. Rosa Shah will call the clinic for any concerns or new symptoms in the interim. Patient's case was discussed with my attending . Vicky Stanford MD Hematology/Oncology fellow Pager [phone] ATTENDING NOTE: Overall she is doing well except persistent left lateral lower extremity subcutaneous hematoma/phlebitis. + Slight warmth but no evidence of direct skin involvement or obvious infection. I recommended her to see dermatology team if this gets worse. Otherwise we will bring her back in 6 months with PET/CT scan if insurance company allows. I have seen and examined the patient by myself with Dr. Stanford and agree with the above plans described. Marley Encarnacion MD documented in this encounter Miscellaneous Notes Addendum Note - Marley Encarnacion MD - 08/09/2018 4:00 PM EST Addended by: MARLEY ENCARNACION on: 08/17/2018 08:02 AM Modules accepted: Orders documented in this encounter Plan of Treatment Not on filedocumented as of this encounter Results PET CT Standard Plus Extremities & Head (02/07/2019 9:12 AM EDT) Anatomical Region Laterality Modality Positron Emission To mography (PET) Specimen (Source) Anatomical Location Collection Method / Collectio n Time Received Time / Laterality Volume Impressions 02/07/2019 11:12 AM EDT 1. ??No specific evidence of tumor recurrence or metastasis 2. ??Diffuse FDG avid thickening and sub cutaneous stranding in the left lateral and medial calf has an appearance most s uggestive of an inflammatory process. 3. ??Several FDG avid subcentimeter thanh gn-appearing bilateral inguinal lymph nodes, stable in size compared to prior exam and consistent with benign reactive nodes. I have personally reviewed the image(s) and the residents interpretation and agree with the findings, Flakito Jarrell at 02/07/2019 11:12 AM Thank you for letting us participate in the care of this patient. For questions regarding this report, please contact th e number below. ? Electronically signed by: Flakito Jarrell [facility] ([phone]), at 02/07/2019 11:12 AM Narrative 02/07/2019 11:12 AM EDT EXAMINATION: PET CT STANDARD PLUS EXTREMITIES AND HEAD CLINICAL HISTORY: Stage IIIa melanoma of left lower back, left lateral lower calf subcutaneous lesion, last CT scan o n 08/09/2018 melanoma TECHNIQUE: Procedure: Following IV injec tion of 91-qfwtsi-3-deoxyglucose (FDG) a standard uptake of approximately 60 janet des, a noncontrast CT scan followed by a PET scan were acquired from the top of h ead to bottom of feet. The noncontrast CT was used for anatomic localization an d photon attenuation correction of the PET scan. Blood glucose level: 91 (mg/dL) FDG dose: 12.2 mCi COMPARISON: PET/CT dated 08/17/2017. CT chest on pel vis dated 08/09/2018. FINDINGS: HEAD/NECK: Normal activity in all soft tissue regio ns. CHEST: Normal activity in all soft tissue regio ns. Scattered calcifications within the thor acic aorta. Left axillary surgical clips are noted. ABDOMEN/PELVIS: Several FDG avid subcentimeter benign-ap pearing bilateral inguinal lymph nodes are unchanged in size compared to prior exam and consistent with benign reactive nodes. Otherwise normal activity in all soft tissue regions. Scattered calcifications within the abdo demetrice aorta. SKELETON/EXTREMITIES: Diffuse FDG avid cutaneous thickening an d subcutaneous stranding in the medial and lateral left lateral calf, for examp le on the lateral side spanning a length of approximately 6 cm Normal activity in all regions of the ax ial and appendicular skeleton. Normal activity in all other soft tissue regions of the upper extremities. Procedure Note Flakito Jarrell MD - 02/07/2019Formatti ng of this note might be different from the original. EXAMINATION: PET CT STANDARD PLUS EXTREM ITIES AND HEAD CLINICAL HISTORY: Stage IIIa melanoma of left lower back, left lateral lower calf subcutaneous lesion, last CT scan o n 08/09/2018 melanoma TECHNIQUE: Procedure: Following IV injec tion of 73-awvqqx-7-deoxyglucose (FDG) a standard uptake of approximately 60 janet des, a noncontrast CT scan followed by a PET scan were acquired from the top of h ead to bottom of feet. The noncontrast CT was used for anatomic localization an d photon attenuation correction of the PET scan. Blood glucose level: 91 (mg/dL) FDG dose: 12.2 mCi COMPARISON: PET/CT dated 08/17/2017. CT chest on pel vis dated 08/09/2018. FINDINGS: HEAD/NECK: Normal activity in all soft tissue regio ns. CHEST: Normal activity in all soft tissue regio ns. Scattered calcifications within the thor acic aorta. Left axillary surgical clips are noted. ABDOMEN/PELVIS: Several FDG avid subcentimeter benign-ap pearing bilateral inguinal lymph nodes are unchanged in size compared to prior exam and consistent with benign reactive nodes. Otherwise normal activity in all soft tissue regions. Scattered calcifications within the abdo demetrice aorta. SKELETON/EXTREMITIES: Diffuse FDG avid cutaneous thickening an d subcutaneous stranding in the medial and lateral left lateral calf, for examp le on the lateral side spanning a length of approximately 6 cm Normal activity in all regions of the ax ial and appendicular skeleton. Normal activity in all other soft tissue regions of the upper extremities. IMPRESSION 1. No specific evidence of tumor recurre nce or metastasis 2. Diffuse FDG avid thickening and subcu taneous stranding in the left lateral and medial calf has an appearance most s uggestive of an inflammatory process. 3. Several FDG avid subcentimeter benign -appearing bilateral inguinal lymph nodes, stable in size compared to prior exam and consistent with benign reactive nodes. I have personally reviewed the image(s) and the residents interpretation and agree with the findings, Flakito Jarrell at 02/07/2019 11:12 AM Thank you for letting us participate in the care of this patient. For questions regarding this report, please contact e number below. Electronically signed by: Flakito Jarrell [facility] ([phone]), at 02/07/2019 11:12 AM Marley Encarnacion MD IMG PET ORDERABLES documented in this encounter Visit Diagnoses Diagnosis Malignant melanoma of torso excluding br east - Primary Malignant melanoma metastatic to lymph n ode Malignant melanoma of torso excluding br east Malignant melanoma metastatic to lymph n ode documented in this encounter Care Teams Pull Out Operator Relationship Specialty Start Date End Date Loren Cortez APRN PCP - General Family Medicine 05/06/17 [address] [place] [address] documented as of this encounter
--- OUTSIDE RECORDS SUMMARY | 2022-05-08 01:04 | XMS_ITS | Encounter Summary ---
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 Juan David Coleman MD [facility] Rad Ct Scan Procedures CT Chest Abdomen Pelvis w Contrast (Generic) [facility] HEMATOLOGY/[place] [address] [place] [address] Referral ID Status Reason Start Date Expiration Date Visits V isits Requested Authorized [id number] Closed Specialty 08/09/2020 02/05/2021 1 1 Service Requested Encounter Details Date Type Department Care Team Description 08/14/2019 Office Visit Hematology and Juan David Coleman MD [facility] HEMATOLOGY/[place] [address] Malignant melanoma of torso excluding br east (Primary Dx); Oncology at [place] Isidra Perdo APRN [facility] HEMATOLOGY-[place] [address] 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 [address] Social History Tobacco Use Types Packs/Day Years Used Date Never Smoker Smokeless Tobacco: Never Used Alcohol Use Standard Drinks/Week Comments Yes 1 (1 standard drink = 0.6 oz pure alcoho l) Sex Assigned at Date Recorded Not on file documented as of this encounter Last Filed Vital Signs Vital Sign Reading Time Taken Comments Blood Pressure 154/91 08/14/2019 10:58 AM EST Pulse 84 08/14/2019 10:58 AM EST Temperature 36.5 ??C (97.7 ??F) 08/14/2019 10:58 AM EST Respiratory Rate 17 08/14/2019 10:58 AM EST Oxygen Saturation 99% 08/14/2019 10:58 AM EST Inhaled Oxygen Concentration - - Weight 97.4 kg (214 lb 12.8 oz) 08/14/2019 10:58 AM EST Height 165.5 cm (5' 5.16) 08/14/2019 10:58 AM EST Body Mass Index 35.57 08/14/2019 10:58 AM EST documented in this encounter Progress Notes Juan David Coleman MD - 08/14/2019 10:45 AM EST Images from the original note were not included. [facility] NOTE REFERING PHYSICIAN: Dr. Syeda [...] color, darker and become elevated Seen by outside sales account representative in February 2017, no bleeding no itching [...] 08/09/2018 was negative for obvious disease recurrence Ultrasound on 10/20/2018 was negative for suspicious lymph node PET CT scan on 02/07/2019 was negative for obvious disease recurrence Left axillary ultrasound on 05/04/2019 was negative for pathologic lymph node CT chest abdomen and pelvis on 08/14/2019 shows no evidence of recurrent or metastatic disease. HPI: Mrs. Shah is a 59 years old lady with t resected left lower back stage IIIa melanoma referred to melanoma clinic on 07/09/2017 to discuss follow- up options for her stage IIIa left lower backmelanoma. INTERVAL HISTORY: The patient is here for restaging CT scan. Clinically she is been doing very well. No significant change in her daily activity comparing to last visit. No change in her breathing. No new or worsening pain. No new nodules. REVIEW OF SYSTEMS: Constitutional: Slight weight gain, no fever, no fatigue, No dizziness. No headache. Eyes: Negative, no visual change ENT: No hearing change Cardiovascular: Negative Respiratory: Negative Gastrointestinal: Negative, Genitourinary: Negative Musculoskeletal: No new joint pain Skin: No rashes, left lower extremity resolved phlebitis Neurological: Negative, no focal weakness Psychiatric: stable [...] 12.65) performed by Syeda Nair MD at [facility] MAIN OR ??? PRO BX/REMV, LYMPH NODE, DEEP AXILL Left 06/10/2017 BIOPSY OR EXCISION OF LYMPH NODE(S), OPEN, DEEP AXILLARY NODE(S) (WRVU 6.43) performed by Syeda Nair MD at [facility] MAIN OR ??? PRO EXC SKIN MALIG 3.1-4CM TRUNK, ARM, LEG N/A 06/10/2017 EXC MALIGNANT LESION, MINGO 3.1 TO 4.0CM, TRUNK (WRVU 3.17) performed by Syeda Nair MD at [facility] MAIN OR ??? PRO INTRAOP SENTINEL LYMPH ID W/DYE INJECTION N/A 06/10/2017 INTRAOPERATIVE ID (MAPPING) SENTINEL LYMPH NODE,INCLUDES INJECTION (WRVU 2.5) performed by Syeda Nair MD at [facility] MAIN OR ??? TONSILLECTOMY MEDS: ??? aspirin 81 mg Tablet, Delayed Release (E.C.) No current facility-administered medications for this visit. aspirin ALLERGY: No Known Allergies FAMILY HX: No melanoma or any type of cancer History reviewed. No pertinent family history. SOCIAL HX: ETOH: Social Smoking: Never Social History Socioeconomic History ??? Marital status: Spouse name: Not on file ??? Number of children: 1 ??? Years of education: Not on file ??? Highest education level: Not on file Occupational History ??? Occupation: Accounts Receivable Social Needs ??? Financial resource strain: Not on file ??? Food insecurity: Worry: Not on file Inability: Not on file ??? Transportation needs: Medical: Not on file Non-medical: Not on file Tobacco Use ??? Smoking status: Never Smoker ??? Smokeless tobacco: Never Used Substance and Sexual Activity ??? Alcohol use: Yes Alcohol/week: 1.0 standard drinks Types: 1 Glasses of wine per week ??? Drug use: Not on file ??? Sexual activity: Yes Lifestyle ??? Physical activity: Days per week: Not on file Minutes per session: Not on file ??? Stress: Not on file Relationships ??? Social connections: Talks on phone: Not on file Gets together: Not on file Attends tenriism service: Not on file Active member of club or organization: Not on file Attends meetings of clubs or organizations: Not on file Relationship status: Not on file ??? Intimate partner violence: Fear of current or ex partner: Not on file Emotionally abused: Not on file Physically abused: Not on file Forced sexual activity: Not on file Other Topics Concern ??? Not on file Social History Narrative 1 daughter PHYSICAL EXAM: PS=0 General: not in acute distress. in good mood and spirits BP (!) 154/91 (Patient Position: Sitting) Pulse 84 Temp 36.5 ??C (97.7 ??F) (Temporal) Resp 17 Ht 165.5 cm (5' 5.16) Wt 97.4 kg (214 lb 12.8 oz) SpO2 99% BMI 35.57 kg/m?? Eyes: Not icteric, not injected Oral: clear. Neck: Supple. No lymphadenopathy. Lungs: Bilaterally clear to auscultation, No wheezing, No crackles Heart: Regular rate and rhythm. Abdomen: Soft, no tenderness, no mass, normal active bowel sounds. Extremities: No edema, resolved phlebitis Skin: No rash, well-healed surgical scar Neuro: No focal weakness LABS: Unremarkable CBC with differential and CMP StableLDH 206 IMAGING STUDIES: CT chest abdomen pelvis on 08/14/2019 There is no evidence of recurrent or metastatic disease. Left axilla ultrasound on 05/04/2019 No pathological lymph node PET/CT scan on 02/07/2019 1. No specific evidence of tumor recurrence or metastasis 2. Diffuse FDG avid thickening and subcutaneous stranding in the left lateral and medial calf has anappearance most suggestive of an inflammatory process. 3. Several FDG avid subcentimeter benign-appearing bilateral inguinal lymph nodes, stable in size compared to prior exam and consistent with benign reactive nodes. CT C/A/P on 08/09/[address] evidence of local recurrence or thoracic, intra-abdominal or pelvic metastases. CT scan on 02/17/2018 no local recurrence or metastasis. PET/CT scan on [...] resected on 06/10/2017, BRAF mutation V600E positive. Today's restaging CT result 2 years from the resection showed no obvious evidence of metastatic disease. I reviewed images by myself. I will have her come back in [address] scan as long as she remains stable. She will continues to follow-up with dermatology. The patient was instructed to call us with any new symptoms or concerns. Juan David Coleman MD I, Natalie Tomas, have performed the documentation for this encounter in the presence of and acting as a scribe for Juan David Coleman MD. All medical record entries made by the Scribe were at my direction and personally dictated by me. I have reviewed the chart and agree that the record accurately reflects my personal performance of the history, physical exam, assessment and plan. I have also personally directed, reviewed, and agree with the discharge instructions. documented in this encounter Plan of Treatment Not on filedocumented as of this encounter Results CT Chest Abdomen Pelvis [...] Juan David Coleman MD IMG CT ORDERABLES Lactate Dehydrogenase (08/13/2020 8:10 AM EST) athologist Signature LDH 217 110 - 220 [facility] unit/L [facility] Specimen Anatomical Collection Method Collection Time Receive d Time (Source) Location / / Volume Laterality Blood specimen 08/13/2020 8:10 AM 020 8:19 (specimen) EST AM EST Resulting Agency Comment Spec In Lab Juan David Coleman MD CHEMISTRY ORDERABLES Performing Organization Address City/State/ZIP [place] [address] Comprehensive metabolic panel (non-fasting) (08/13/2020 8:10 AM EST) athologist Signature Glucose Lvl 96 65 - 199 [facility] mg/dL [facility] Comment: Diabetes: >=200 mg/dL plus symp toms BUN 14 8 - 18 mg/dL [facility] Creatinine 0.90 0.70 - 1.20 mg/dL [facility] Sodium 143 135 - 145 mmol/L [facility] Potassium 3.7 3.5 - 5.0 mmol/L [facility] Comment: Please note: ??Patients with WBC >100,00 0 may have falsely elevated Potassium levels. ??For accurate Potassium quantif ication in these patients send serum separator tube (gold top) for subsequent determinations. ??Contact the Clinical Chemistry Laboratory if there are any qu estions. Chloride 107 98 - 107 mmol/L [facility] CO2 26 22 - 31 mmol/L [facility] Anion Gap 10 5 - 15 mmol/L [facility] Calcium 9.4 8.5 - 10.5 mg/dL [facility] Total Protein 7.2 6.1 - 8.0 gm/dL [facility] Albumin 4.6 3.2 - 5.2 gm/dL [facility] AST 17 0 - 30 unit/L [facility] ALT 13 0 - 30 unit/L [facility] Alk Phos 83 35 - 105 unit/L [facility] Total Bilirubin 0.4 0.2 - 1.3 mg/dL [facility] Estimated GFR 70 >=60 mL/min/1.73 m?? [facility] Comment: The eGFR was calculated using the CKD-EP I equation. As with all creatinine based estimates of kidney function, eGFR values calculated with the CKD-EPI equation are not accurate in patients wi th acute kidney failure, extremes of body mass or the acutely ill. http://[email or web address]/[email or web address] eGFR 81 >=60 mL/min/1.73 m?? [facility] Comment: The eGFR was calculated using the CKD-EP I equation. As with all creatinine based estimates of kidney function, eGFR values calculated with the CKD-EPI equation are not accurate in patients wi th acute kidney failure, extremes of body mass or the acutely ill. 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
--- OUTSIDE RECORDS SUMMARY | 2022-05-08 01:04 | XMS_ITS | Encounter Summary ---
:1960 Author Organization [facility] [place] [address] Care Team Providers Name Role Phone Loren Cortez MANAGER REHAB Primary Care Provider [phone] Reason for Visit Reason Comments Follow-up Encounter Details Date Type Department Care Team Description 02/07/2019 Office Visit Hematology and Marley Encarnacion, Malignant melanoma of torso excluding breast (Primary Dx); Oncology at [facility] Malignant melanoma metastatic to lymph n ode [facility] [address] JARED Dugan HEMATOLOGY/ONCOLOG [phone] Y DEPT [phone] [place], [place] [address] Social History Tobacco Use Types Packs/Day Years Used Date Never Smoker Smokeless Tobacco: Never Used Alcohol Use Standard Drinks/Week Comments Yes 1 (1 standard drink = 0.6 oz pure alcoho l) Sex Assigned at Date Recorded Not on file documented as of this encounter Last Filed Vital Signs Vital Sign Reading Time Taken Comments Blood Pressure 144/64 02/07/2019 10:22 AM EDT Pulse 69 02/07/2019 10:22 AM EDT Temperature 36.8 ??C (98.2 ??F) 02/07/2019 10:22 AM EDT Respiratory Rate 18 02/07/2019 10:22 AM EDT Oxygen Saturation 100% 02/07/2019 10:22 AM EDT Inhaled Oxygen Concentration - - Weight 97.4 kg (214 lb 12.8 oz) 02/07/2019 10:22 AM EDT Height 165.5 cm (5' 5.16) 02/07/2019 10:22 AM EDT Body Mass Index 35.57 02/07/2019 10:22 AM EDT documented in this encounter Progress Notes Marley Encarnacion MD - 02/07/2019 11:00 AM EDT Images from the original note were not included. [facility] NOTE REFERING PHYSICIAN: Dr. Syeda Nair [...] color, darker and become elevated Seen by family readiness support assistant in February 2017, no bleeding no itching [...] 02/07/2019 was negative for obvious disease recurrence HPI: Mrs. Osorio is a 58 years old lady with the above medical history referred to melanoma clinic on 07/09/2017 to discuss follow-up options for her stage IIIa left lower back melanoma. INTERVAL HISTORY: The patient is here for restaging PET CT scan. Her left leg phlebitis has been stable without any worsening symptoms. No significant change in her daily activity comparing to last visit. REVIEW OF SYSTEMS: Constitutional: Slight weight gain, [...] 12.65) performed by Syeda Nair MD at [facility] MAIN OR ??? PRO BX/REMV, LYMPH NODE, DEEP AXILL Left 06/10/2017 BIOPSY OR EXCISION OF LYMPH NODE(S), OPEN, DEEP AXILLARY NODE(S) (WRVU 6.43) performed by Syeda Nair MD at [facility] MAIN OR ??? PRO EXC SKIN MALIG 3.1-4CM TRUNK, ARM, LEG N/A 06/10/2017 EXC MALIGNANT LESION, MINGO 3.1 TO 4.0CM, TRUNK (WRVU 3.17) performed by Syeda Nair MD at [facility] OR ??? PRO INTRAOP SENTINEL LYMPH ID W/DYE INJECTION N/A 06/10/2017 INTRAOPERATIVE ID (MAPPING) SENTINEL LYMPH NODE,INCLUDES INJECTION (WRVU 2.5) performed by Syeda Nair MD at [facility] MAIN OR ??? TONSILLECTOMY MEDS: ? aspirin 81 mg Tablet, Delayed Release (E.C.) [...] file Gets together: Not on file Attends jewish service: Not on file Active member of [...] distress. in good mood and spirits BP 144/64 (Patient Position: Sitting) Pulse 69 Temp 36.8 ??C (98.2 ??F) (Temporal) Resp 18 Ht 165.5 cm (5' 5.16) Wt 97.4 kg (214 lb 12.8 oz) SpO2 100% BMI 35.57 kg/m?? Eyes: Not icteric, not injected Oral: clear. Neck: Supple. No lymphadenopathy. Lungs: Bilaterally clear to auscultation, No wheezing, No crackles Heart: Regular rate and rhythm. Abdomen: Soft, no tenderness, no mass, normal active bowel sounds. Extremities: No edema, unchanged palpable lump on the left [place] associated with spiders and varicose veins which is stable (improved from before). Skin: No rash, a small lump is noted on the right mid-back, that is stable Neuro: No focal weakness LABS: Unremarkable CBC with differential and CMP LDH 226 IMAGING STUDIES: PET/CT scan on 02/07/2019 1. No specific [...] 06/10/2017, BRAF mutation V600E positive. Today's restaging PET CT scan result is encouraging. No suspicious subcutaneous nodules were seen including left lower extremity. I reviewed images by myself. I will have her come back in 3 months with left axillary ultrasound. And we will bring her back with CT scan in August 2019. If next CT scan is negative for obvious disease, we will consider annual imaging. The patient was instructed to call us with any new symptoms or concerns. Marley Encarnacion MD documented in this encounter Plan of Treatment Not on filedocumented as of this encounter Results US Extremity Non Vascular Limited Left (05/04/2019 3:02 PM EDT) Anatomical Region Laterality Modality Ultrasound Specimen (Source) Anatomical Collection Method Collection Time Re ceived Time Location / / Volume Laterality 05/04/2019 3:00 PM EDT Impressions 05/04/2019 3:15 PM EDT ?? No abnormal axillary adenopathy is s een in the LEFT axilla Thank you for letting us participate in the care of this patient. For questions regarding this report, please contact t he number below. 3:0 7 PM ? Lucie Evangelista, Staff Physician Electronically Signed Final Report ?? 03:14 pm Narrative 05/04/2019 3:15 PM EDT Ultrasound ??of the left Axilla ? ( Signed Final 05/04/2019 03:14 pm) Report PATIENT INFO: ID #: ? [id number] ?: ??[birth year] (58 yrs) Name: ? ANNETTE OSORIO ?Visit Date: 05/04/2019 03:00 pm PERFORMED BY: Performed By: ? Monet Solis RDMS Attending: ?Jean Carlos REDDY, Lucie Castorena Referred By: ?MARLEY ENCARNACION Location: ? [place] SERVICE(S) PROVIDED: ??UEXTLMTL - Extremity Limited Non Vasc ular - Left ?[id number] ??- [id number] INDICATIONS: ??left lower back melanoma left axilla N1a (10/06 ??several IHC positive cells MelanA/HMB 45 ) ??resected on 06/10/2017 COMPARISON: PET CT: 02/07/19, US: 10/20/18 -------- HISTORY: -------- History of melanoma left lower back. --------- FINDINGS: --------- Title: ? Ultrasound ??of the lef t Axilla Report Findings: ?No evidence of lymph nod es or masses visualized. Procedure Note Lucie Evangelista MD - 05/04/2019Formattaraceli morrison of this note might be different from the original. Ultrasound of the left Axilla (Signed F inal 05/04/2019 03:14 pm) Report PATIENT INFO: ID #: [id number] : 60 (58 y rs) Name: ANNETTE OSORIO Visit Date: 05/04 03:00 pm PERFORMED BY: Performed By: Meli Solis RDMS Attending: Lucie Evangelista MD Referred By: MARLEY ENCARNACION Location: [place] SERVICE(S) PROVIDED: UEXTLMTL - Extremity Limited Non Vascul ar - Left [id number] - [id number] INDICATIONS: left lower back melanoma left axilla N1 a (1/3 several IHC positive cells MelanA/HMB45 ) resected on 06/10/2017 COMPARISON: PET CT: 02/07/19, US: 10/20/18 -------- HISTORY: -------- History of melanoma left lower back. --------- FINDINGS: --------- Title: Ultrasound of the left Axilla Re port Findings: No evidence of lymph nodes or masses visualized. IMPRESSION No abnormal axillary adenopathy is seen in the LEFT axilla Thank you for letting us participate in the care of this patient. For questions regarding this report, please contact john lunsford below. 3:0 7 PM Lucie Evangelista, Staff Physician Electronically Signed Final Report 05/04 03:14 pm Marley Encarnacion MD IMG US GEN ORDERABLES documented in this encounter Visit Diagnoses Diagnosis Malignant melanoma of torso excluding br east - Primary Malignant melanoma metastatic to lymph n ode Malignant melanoma of torso excluding br east Malignant melanoma metastatic to lymph n ode documented in this encounter Care Teams Marketing Professor Relationship Specialty Start Date End Date Loren Cortez APRN PCP - General Family Medicine 05/06/17 [address] [place] [address] documented as of this encounter
--- OUTSIDE RECORDS SUMMARY | 2022-05-08 01:04 | XMS_ITS | Encounter Summary ---
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 Rad Ct Scan Procedures CT Chest Abdomen Pelvis w Contrast (Generic) [facility] HEMATOLOGY/[place] [address] [place] [address] Referral ID Status Reason Start Date Expiration Date Visits V isits Requested Authorized [id number] Closed Specialty 07/29/2018 09/12/2018 1 1 Service Requested Encounter Details Date Type Department Care Team Description 08/09/[address] Scan at [facility] Juan David Coleman, Malignant melanoma [facility] metastatic to lymph [address] [facility] [place] [place] [facility] [address] HEMATOLOGY/ONCOL [phone] [place] [address] Social History Tobacco Use Types Packs/Day Years Used Date Never Smoker Smokeless Tobacco: Never Used Alcohol Use Standard Drinks/Week Comments Yes 1 (1 standard drink = 0.6 oz pure alcoho l) Sex Assigned at Date Recorded Not on file documented as of this encounter Plan of Treatment Not on filedocumented as of this encounter Procedures Procedure Name Priority Date/Time Associated Diagnosis Comme nts CT CHEST ABDOMEN Routine 08/09/2018 2:53 PM Malignant melanoma Results for this PELVIS W CONTRAST EST metastatic to lymph pro cedure are in (GENERIC) node the results section. documented in this encounter Results CT Chest Abdomen Pelvis w Contrast (Generic) (08/09/2018 2:53 PM EST) Anatomical Region Laterality Modality Abdomen, Pelvis Computed Tomography Specimen (Source) Anatomical Location Collection Method / Collectio n Time Received Time / Laterality Volume Impressions 08/09/2018 4:36 PM EST Stable exam. No CT evidence of local recurrence or th oracic, intra-abdominal or pelvic metastases. Preliminary report signed by: Amparo Esquivel at 08/09/2018 3:39 PM I have personally reviewed the image(s) and the residents interpretation and agree with the findings, Kell Lema at 1 10/09/2017 4:36 PM Narrative 08/09/2018 4:36 PM EST EXAMINATION: CT CHEST ABDOMEN PELVIS W CONTRAST (GENERIC) CLINICAL HISTORY: left lower back left a xilla N1a (1/3 several IHC positive cells MelanA/HMB45 ) resected on 7 TECHNIQUE: Helical CT of the chest, abdo men, and pelvis was performed following intravenous administration of 104 ml of Omnipaque 350 Oral contrast was administered. COMPARISON: 02/17/2018 FINDINGS: Chest: Lungs and large airways: Normal. Pleura: No effusion. Heart/vasculature: Normal. Lymph nodes: Postoperative changes of pr ior tyron dissection again noted in the left axilla. 6 to 7 mm left axillary nod e (series 3 image 16), similar in appearance compared to the prior study Mediastinum and nagi: Normal. Abdomen/pelvis: Liver: Normal size and attenuation witho ut lesions. Bile ducts: Nondilated. Gallbladder: No calcified gallstones. No rmal caliber wall. Pancreas: Normal attenuation without angelica norah dilatation. Spleen: Normal. Adrenals: Normal. Kidneys: Normal. Urinary Bladder: Normal. Vasculature: No aneurysm. Lymph Nodes: ??No enlarged lymph nodes. Bowel: Nondilated, no wall thickening. ? ? Peritoneum and mesentery: No ascites, fr ee air, or loculated fluid collection. No mesenteric inflammation. Abdominal wall: Normal. Reproductive organs: Normal. Osseous structures: No suspicious lesion s. Procedure Note Kell Lema MD - 08/09/2018 EXAMINATION: CT CHEST ABDOMEN PELVIS W CONTRAST (GENERIC) CLINICAL HISTORY: left lower back left a xilla N1a (1/3 several IHC positive cells MelanA/HMB45 ) resected on 7 TECHNIQUE: Helical CT of the chest, abdo men, and pelvis was performed following intravenous administration of 104 ml of Omnipaque 350 Oral contrast was administered. COMPARISON: 02/17/2018 FINDINGS: Chest: Lungs and large airways: Normal. Pleura: No effusion. Heart/vasculature: Normal. Lymph nodes: Postoperative changes of pr ior tyron dissection again noted in the left axilla. 6 to 7 mm left axillary nod e (series 3 image 16), similar in appearance compared to the prior study Mediastinum and nagi: Normal. Abdomen/pelvis: Liver: Normal size and attenuation witho ut lesions. Bile ducts: Nondilated. Gallbladder: No calcified gallstones. No rmal caliber wall. Pancreas: Normal attenuation without angelica norah dilatation. Spleen: Normal. Adrenals: Normal. Kidneys: Normal. Urinary Bladder: Normal. Vasculature: No aneurysm. Lymph Nodes: No enlarged lymph nodes. Bowel: Nondilated, no wall thickening. Peritoneum and mesentery: No ascites, fr ee air, or loculated fluid collection. No mesenteric inflammation. Abdominal wall: Normal. Reproductive organs: Normal. Osseous structures: No suspicious lesion s. IMPRESSION Stable exam. No CT evidence of local recurrence or th oracic, intra-abdominal or pelvic metastases. Preliminary report signed by: Amparo Esquivel at 08/09/2018 3:39 PM I have personally reviewed the image(s) and the residents interpretation and agree with the findings, Kell Lema at 1 10/09/2017 4:36 PM Juan David Coleman MD IMG CT ORDERABLES documented in this encounter Visit Diagnoses Diagnosis Malignant melanoma metastatic to lymph n ode documented in this encounter Administered Medications Inactive Administered Medications - up to 3 most recent administrations Medication Order MAR Action Action Date Dose Rate Site iohexol (OMNIPAQUE) 350 mg/mL Given 08/09/2018 2:55 PM EST 104 m Ls solution 0-200 mL 0-200 mL, Intravenous, ONCE PRN, 1 dose, Starting on Wed08/09/18 at 1454, Until Wed08/09/18 at 1455, Per Protocol, Warning Vesicant/Irritant Medication , Radiology Contrast, Routine iohexol (OMNIPAQUE) 350 mg/mL solution 0-50 Given 08/09/2018 2:55 PM EST 50 mLs mL 0-50 mL, Oral, ONCE PRN, 1 dose, Starting on Wed08/09/18 at 1454, Until Tu08/09/18 at 1455, Per Protocol, Warning Vesicant/Irritant Medication , Radiology Contrast, Routine documented in this encounter Care Teams Armature Repairer Relationship Specialty Start Date End Date Loren Cortez APRN PCP - General Family Medicine 05/06/17 [address] [place] [address] documented as of this encounter
--- OUTSIDE RECORDS SUMMARY | 2022-05-08 01:04 | XMS_ITS | Encounter Summary ---
:1960 Author Organization [facility] Address [address] [address] Care Team Providers Name Role Phone Loren Cortez APRN Primary Care Provider [phone] Reason for Visit Reason Comments Skin Check Encounter Details Date Type Department Care Team Description 12/30/[facility] David Coleman MD History of thrombophlebitis; [address] [facility] Multiple benign nevi; [place] [address] [address] Dermatofibroma; [phone] [facility] History of adela noma; RD-DERMATOLGY Subungual hemorrhage [place], [place] [address] Social History Tobacco Use Types Packs/Day Years Used Date Never Smoker Smokeless Tobacco: Never Used Alcohol Use Standard Drinks/Week Comments Yes 1 (1 standard drink = 0.6 oz pure alcoho l) Sex Assigned at Date Recorded Not on file documented as of this encounter Progress Notes Carline Franco MD - 12/30/2018 8:00 AM EDT DERMATOLOGY ESTABLISHED PATIENT CLINIC NOTE Date of service: 12/30/2018 Rosa Shah : 1960 Provider: Carline Franco MD Chief Complaint Patient presents with ??? Skin Check SKIN HISTORY: 05/06/2017 ??Skin, left lower back, excision: - Invasive melanoma (see table) Histologic Type: ?Superficial spreading Ulceration: ? Not identified Depth of Invasion: ?1.48 mm Balbir 's Level: ?III Regression: ? Not identified Vascular Invasion: ?Not identified Perineural Invasion: ?Not identified Microscopic Satellites: ?? Not identified Dermal mitoses per mm2: 6 Tumor infiltrating ?? lymphocytes: ?Present, non-brisk Solar Elastosis: ?Not identified Associated Nevus: ? Not identified Margins: Peripheral Margins: ? Negative (see discussion) Deep Margin: ?Negative for melanoma Pathologic TNM Codes: ?? pT2a Electronically signed by: ??Rudy REDDY, Amador Mendoza Verified: ??05/11/2017 ?Dermatopathologist DISCUSSION Melanoma in situ extends approximately 1.0 mm from the nearest lateral margin. - Excised by Dr. Franco 05/06/17 HPI Rosa Shah is a 58 y.o. year old female, established patient last seen by me on 01/12/18. Here today for a full skin examination. Patient reports she has had superficial blood clots in her left lower leg, now appears as bruised as she was told they were broken up. She visited Dr. Hudson, no intervention was needed. She has been wearing compression stockings daily, taking a baby aspirin. Feeling well. Denies new unintentional weight loss, fatigue. No new lumps/bumps/nodes. She denies any new skin concerns today. MEDS: No current outpatient medications on file. No current facility-administered medications for this visit. ADR: No Known Allergies ROS General: feeling well Skin: denies other skin complaints EXAM General: NAD, pleasant, cooperative Skin: Patient was asked to undress to the level of her comfort. Verbalized that the provider's preference is for the patient to remove all clothing and that the provider will not examine areas patient elects to keep covered. Patient's decision was to remove bra and keep underwear on and have the following examined: skin of the scalp, hair, face, ears, neck, chest, breasts, abdomen, back, axillae, upper and lower extremities, hands, and feet. Buttocks and genitalia were not examined. Significant skin findings: A. Left great toe: subungual hemorrhage B. Left lower leg: Dull red/brown indurated plaques C. Sun-exposed areas of the trunk and extremities: Scattered 0.3-0.6 cm light- brown, evenly pigmented, well-demarcated macules. D. Trunk and extremities: Multiple 0.3-0.5 cm medium-brown, evenly-pigmented macules and papules. All with regular pigment pattern on dermoscopy. No pigmented lesions suspicious for melanoma. E. Right knee: Firm papule, centrally raised and sclerotic, with peripheral hyperpigmentation and dimpling with lateral pressure. F. Well healed scar per skin history. No repigmentation or lymphadenopathy. ?? ASSESSMENT/PLAN: A. Subungual Hemorrhage, known trauma - No treatment necessary at this time B. Recent h/o Superficial thrombophlebitis, early lipodermatosclerosis - Recent ultrasounds was negative - Recommend wearing compression stockings C. Lentigines - Discussed benign nature of lesions and provided reassurance. No treatment necessary at this time. - Discussed nature of sun-induced photo-aging and skin cancers. Advised sun avoidance, protective clothing, and use of SPF 30+ broad-spectrum sunscreens. - Instructed patient to observe closely for skin damage/changes and call if such occur. D. Benign-Appearing Nevi - No atypical lesions or features worrisome for malignancy. - Advised patient to watch for anything new or changing. Discussed changes (bleeding, pain, change in color or shape) that should prompt re-evaluation.?? - Will continue to monitor. E. Dermatofibroma - Discussed benign nature of lesion and provided reassurance. No treatment necessary. - Explained that if it were to become irritated, punch removal is an option but would be trading thepapule for a scar. E. H/O Melanoma - Will continue to monitor - Being followed by Hem Onc ?? Follow up: RTC in 6 months, for a full skin exam; sooner if needed. Appointment scheduled before exiting. Instructed patient to call with questions or concerns. Note initiated by: VALENTIN GUADALUPE LPN ? Sachi Raymundo, Clinical Scribe has performed the documentation for this encounter in the presence of and acting as a scribe for Carline Franco MD. I performed the above scribed service and agree with the accuracy of the documentation in this encounter. Carline Franco MD [employer]p [employer] of Dermatology, Department of Surgery [facility] documented in this encounter Plan of Treatment Not on filedocumented as of this encounter Visit Diagnoses Diagnosis Lentigines Other dyschromia History of thrombophlebitis Personal history of thrombophlebitis Multiple benign nevi Benign neoplasm of skin, site unspecifie d Dermatofibroma Benign neoplasm of skin, site unspecifie d History of melanoma Personal history of malignant melanoma o f skin Subungual hemorrhage Other specified disease of nail documented in this encounter Care Teams Dental Ceramist Helper Relationship Specialty Start Date End Date Loren Cortez APRN PCP - General Family Medicine 05/06/17 [address] [place] [address] documented as of this encounter
--- OUTSIDE RECORDS SUMMARY | 2022-05-08 01:04 | XMS_ITS | Encounter Summary ---
:1960 Author Organization [facility] [place] [address] Care Team Providers Name Role Phone Loren Cortez APRN Primary Care Provider [phone] Reason for Visit Reason Comments Follow-up Encounter Details Date Type Department Care Team Description 08/13/2020 Office Visit Hematology and Juan David Coleman MD [facility] DR HEMATOLOGY/[place] [address] Malignant melanoma of torso excluding br east; Oncology at [facility] Meg Saxena MD [facility] DR HEMATOLOGY/[place] [address] 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 [address] Social History Tobacco Use Types Packs/Day Years Used Date Never Smoker Smokeless Tobacco: Never Used Alcohol Use Standard Drinks/Week Comments Yes 1 (1 standard drink = 0.6 oz pure alcoho l) Sex Assigned at Date Recorded Not on file documented as of this encounter Last Filed Vital Signs Vital Sign Reading Time Taken Comments Blood Pressure 134/82 08/13/2020 10:37 AM EST Pulse 79 08/13/2020 10:37 AM EST Temperature 36.3 ??C (97.3 ??F) 08/13/2020 10:37 AM EST Respiratory Rate 16 08/13/2020 10:37 AM EST Oxygen Saturation 100% 08/13/2020 10:37 AM EST Inhaled Oxygen Concentration - - Weight 83.9 kg (185 lb) 08/13/2020 10:37 AM EST Height - - Body Mass Index 30.64 08/14/2019 10:58 AM EST documented in this encounter Progress Notes Juan David Coleman MD - 08/13/2020 11:30 AM EST Images from the original note were not included. [facility] CLINIC NOTE REFERING PHYSICIAN: Dr. Syeda [...] color, darker and become elevated Seen by slide forming machine tender in February 2017, no bleeding no itching [...] no evidence of recurrent or metastatic disease. Chest abdomen pelvic CT scan on 08/13/2020 showed no obvious disease recurrence HPI: Mrs. Shah is a 60 y.o. lady with t resected left lower back stage IIIa melanoma referred to melanoma clinic on 07/09/2017 to discuss follow-up options for her stage IIIa left lower back melanoma. INTERVAL HISTORY: The patient is here for scheduled restaging CT scan. Clinically she is been doing very well. No significant change in her daily activity. The patient has not seen dermatology team due to COVID-19 situation No new or worsening pain. No new [...] 12.65) performed by Syeda Nair MD at [facility] ??? PRO BX/REMV, LYMPH NODE, DEEP AXILL Left 06/10/2017 BIOPSY OR EXCISION OF LYMPH NODE(S), OPEN, DEEP AXILLARY NODE(S) (WRVU 6.43) performed by Syeda Nair MD at [facility] ??? PRO EXC SKIN MALIG 3.1-4CM TRUNK, ARM, LEG N/A 06/10/2017 EXC MALIGNANT LESION, MINGO 3.1 TO 4.0CM, TRUNK (WRVU 3.17) performed by Syeda Nair MD at [facility] ??? PRO INTRAOP SENTINEL LYMPH ID W/DYE INJECTION N/A 06/10/2017 INTRAOPERATIVE ID (MAPPING) SENTINEL LYMPH NODE,INCLUDES INJECTION (WRVU 2.5) performed by Syeda Nair MD at [facility] ??? TONSILLECTOMY MEDS: ??? aspirin 81 mg Tablet, Delayed Release (E.C.) No current facility-administered medications for this visit. aspirin EC ALLERGY: No Known Allergies FAMILY HX: No [...] strain: Not on file ??? Food insecurity Worry: Not on file Inability: Not on file ??? Transportation needs Medical: Not on file Non-medical: Not on file Tobacco Use ??? Smoking status: Never Smoker ??? Smokeless tobacco: Never Used Substance and Sexual Activity ??? Alcohol use: Yes Alcohol/week: 1.0 standard drinks Types: 1 Glasses of wine per week ??? Drug use: Not on file ??? Sexual activity: Yes Lifestyle ??? Physical activity Days per week: Not on file Minutes per session: Not on file ??? Stress: Not on file Relationships ??? Social connections Talks on phone: Not on file Gets together: Not on file Attends rastafari service: Not on file Active member of club or organization: Not on file Attends meetings of clubs or organizations: Not on file Relationship status: Not on file ??? Intimate partner violence Fear of current or ex partner: Not on file Emotionally abused: Not on file Physically abused: Not on file Forced sexual activity: Not on file Other Topics Concern ??? Not on file Social History Narrative 1 daughter PHYSICAL EXAM: PS=0 General: not in acute distress. in good mood and spirits BP 134/82 (Patient Position: Sitting) Pulse 79 Temp 36.3 ??C (97.3 ??F) (Temporal) Resp 16 Wt 83.9 kg (185 lb) SpO2 100% BMI 30.64 kg/m?? Eyes: Not icteric, not injected Oral: Not examined Neck: Supple. No lymphadenopathy. Lungs: Bilaterally clear to auscultation, No wheezing, No crackles Heart: Regular rate and rhythm. Abdomen: Soft, no tenderness, no mass, normal active bowel sounds. Extremities: No edema, resolved phlebitis Skin: No rash, well-healed surgical scar Neuro: No focal weakness LABS: Unremarkable CBC with differential and CMP StableLDH through 17 IMAGING STUDIES: Chest abdomen pelvic CT scan on 08/13/2020 Stable exam. No evidence of metastasis. CT chest abdomen pelvis on 08/14/2019 There [...] mutation [id number] positive. Today's restaging CT result 3 years from the resection showed no obvious evidence of metastatic disease. I reviewed images by myself. Denies any left arm swelling. The importance of dermatology follow-up was emphasized. I will have her come back in [address] scan as long as she remains stable. The patient was instructed to call us with any new symptoms or concerns. Juan David Coleman MD documented in this encounter Plan of Treatment Scheduled Orders Name Type Priority Associated Diagnoses Order S chedule CBC (with Diff) Lab STAT Malignant melanoma of Exp ected: 08/11/2021 torso excluding breast (Appr oximate), Expires: 2021 Comprehensive metabolic Lab STAT Malignant melanom a of Expected: 08/11/2021 panel (non-fasting) torso excluding breas t (Approximate), Expires: 2021 Lactate Dehydrogenase Lab STAT Malignant melanoma of Expected: 08/11/2021 torso excluding breast (Appr oximate), Expires: 2021 documented as of this encounter Visit Diagnoses Diagnosis Malignant melanoma of torso excluding br east 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 Secondary and unspecified malignant neop lasm of lymph nodes, site unspecified documented in this encounter Care Teams Metal Drill Operator Relationship Specialty Start Date End Date Loren Cortez APRN PCP - General Family Medicine 05/06/17 [address] [place] [address] documented as of this encounter
--- OUTSIDE RECORDS SUMMARY | 2022-05-08 01:04 | XMS_ITS | Encounter Summary ---
:1960 Author Organization [facility] [place] [address] Care Team Providers Name Role Phone Loren Cortez ORNAMENTAL METAL ERECTOR Primary Care Provider [phone] Encounter Details Date Type Department Care Team Description 08/14/2019 Hospital Encounter Hematology and Maligna nt melanoma of Oncology at [facility] torso [place] [address] Social History Tobacco Use Types Packs/Day [...] Priority Date/Time Associated Comments Diagnosis HEMOGRAM STAT 08/14/2019 7:21 AM Malignant melanoma Res ults for this EST of torso excluding procedure are in breast the results section. DIFFERENTIAL, STAT 08/14/2019 7:21 AM Malignant melanoma Re sults for this AUTOMATED EST of torso excluding procedure are in breast the results section. HC CBC,PLT & AUTO DIFF STAT 08/14/2019 7:21 AM Malignant me lanoma EST of torso excluding breast HC VENIPUNCTURE STAT 08/14/2019 7:21 AM Malignant melanoma Results for this EST of torso excluding procedure are in breast the results section. COMPREHENSIVE STAT 08/14/2019 7:21 AM Malignant melanoma Re sults for this METABOLIC PANEL EST of torso excluding proced ure are in (NON-FASTING) breast the results section. documented in this encounter Results Differential, Automated (08/14/2019 7:21 AM EST) P athologist Signature Neutrophils % 48.8 % [facility] Neutr Abs (ANC) 2.47 1.70 - [facility] 6.[address] [facility] x10(3)/[facility] LABORATORY Lymphocytes % 42.3 % [facility] Lymphocytes Abs 2.1 0.9 - 3.[address] [facility] x10(3)/[facility] LABORATORY Monocytes % 6.3 % [facility] Monocyte Abs 0.3 0.3 - 0.[address] [facility] x10(3)/[facility] LABORATORY Eosinophils % 1.4 % [facility] Eosinophils Abs 0.1 0.0 - 0.[address] [facility] x10(3)/[facility] LABORATORY Basophils % 0.8 % [facility] Basophils Abs 0.0 0.0 - 0.[address] [facility] x10(3)/[facility] LABORATORY Immature Gran % 0.40 % [facility] Comment: Immature granulocytes(IG's)percentage an d absolute count will include metamyelocytes, myelocytes, and promyelo cytes. Blood smears from CBCs yielding IG's will be scanned manually for concor dance. If this scan disagrees with the automated IG or if promyelocytes are not ed, a manual differential will be performed. Ekaterina Gran Abs 0.02 0.00 - 0.04 x10(3)/[facility] Specimen Anatomical Collection Method Collection Time Receive d Time (Source) Location / / Volume Laterality Blood specimen 08/14/2019 7:21 AM 019 7:24 (specimen) EST AM EST Resulting Agency Comment Spec In Lab Juan David Coleman MD HEMATOLOGY ORDERABLES Performing Organization Address City/State/[place] [address] Hemogram (08/14/2019 7:21 AM EST) athologist Signature WBC 5.1 4.0 - 9.5 [facility] LAB[facility]ATORY RBC 4.02 4.00 - [facility] [address] [facility] x10(6)/[facility] LABORATORY Hemoglobin 12.0 11.7 - [facility] 15.[facility] gm/dL [facility] Hematocrit 36.5 35.7 - [facility] 45.8 % [facility]ORY MCV 90.8 82.6 [facility]4 [facility] MCH 29.9 27.1 - [facility] 32.0 pg [facility]ORY MCHC 32.9 31.7 - [facility] 35.0 gm/dL [facility] Platelets 304 145 - [address] [facility] x10(3)/[facility] LABORATORY RDWSD 42.3 37.0 - [facility] 46.0 [facility]ORY RDWCV 12.8 11.5 - [facility] ED[facility]ERT[facility] 14.1 % [facility] LABORATORY MPV 10.2 7.6 - 12.9 [facility] LABORATORY nRBC % Auto 0.0 % [facility] nRBC Abs Auto 0.000 0.000 - [facility] [address] [facility] x10(3)/[facility] LABORATORY Specimen Anatomical Collection Method Collection Time Receive d Time (Source) Location / / Volume Laterality Blood specimen 08/14/2019 7:21 AM 019 7:24 (specimen) EST AM EST Resulting Agency Comment Spec In Lab Juan David Coleman MD HEMATOLOGY ORDERABLES Performing Organization Address City/State/[place] [address] Comprehensive metabolic panel (non-fasting) (08/14/2019 7:21 AM EST) athologist Signature Glucose Lvl 100 65 - [address] [facility] mg/dL [facility] Comment: Diabetes: >=200 mg/dL plus symp toms BUN 12 8 - 18 mg/dL [facility] Creatinine 0.95 0.70 - 1.20 mg/dL [facility] Sodium 143 135 - 145 mmol/L [facility] Potassium 4.1 3.5 - 5.0 mmol/L [facility] Comment: Please note: ??Patients with WBC >100,00 0 may have falsely elevated Potassium levels. ??For accurate Potassium quantif ication in these patients send serum separator tube (gold top) for subsequent determinations. ??Contact the Clinical Chemistry Laboratory if there are any qu estions. Chloride 107 98 - 107 mmol/L [facility] CO2 23 22 - 31 mmol/L [facility] Anion Gap 13 5 - 15 mmol/L [facility] Calcium 9.2 8.5 - 10.5 mg/dL [facility] Total Protein 6.9 6.1 - 8.0 gm/dL [facility] Albumin 4.2 3.2 - 5.2 gm/dL [facility] AST 16 0 - 30 unit/L [facility] ALT 15 0 - 30 unit/L [facility] Alk Phos 77 35 - 105 unit/L [facility] Total Bilirubin 0.3 0.2 - 1.3 mg/dL [facility] Estimated GFR 66 >=60 mL/min/1.73 m?? [facility] Comment: The eGFR was calculated using the CKD-EP I equation. As with all creatinine based estimates of kidney function, eGFR values calculated with the CKD-EPI equation are not accurate in patients wi th acute kidney failure, extremes of body mass or the acutely ill. http://Dextrys/[facility] eGFR 76 >=60 mL/min/1.73 m?? [facility] Comment: The eGFR was calculated using the CKD-EP I equation. As with all creatinine based estimates of kidney function, eGFR values calculated with the CKD-EPI equation are not accurate in patients wi th acute kidney failure, extremes of body mass or the acutely ill. http://Dextrys/[facility] Specimen Anatomical Collection Method Collection Time Receive d Time (Source) Location / / Volume Laterality Blood specimen 08/14/2019 7:21 AM 019 7:25 (specimen) EST AM EST Resulting Agency Comment Spec In Lab Juan David Coleman MD CHEMISTRY ORDERABLES Performing Organization Address City/State/ZIP [place] [address] Lactate Dehydrogenase (08/14/2019 7:21 AM EST) P athologist Signature LDH 206 110 - [address] [facility] unit/L [facility]OR[facility]ORY Specimen Anatomical Collection Method Collection Time Receive d Time (Source) Location / / Volume Laterality Blood specimen 08/14/2019 7:21 AM 019 7:25 (specimen) EST AM EST Resulting Agency Comment Spec In Lab Juan David Coleman MD CHEMISTRY ORDERABLES Performing Organization Address City/[facility]/ZIP [place] [address] documented in this encounter Visit Diagnoses Diagnosis Malignant melanoma of torso excluding br east documented in this encounter Care Teams Home Stager Relationship Specialty Start Date End Date Loren Cortez APRN PCP - General Family Medicine 05/06/17 [address] [place] [address] documented as of this encounter
--- OUTSIDE RECORDS SUMMARY | 2022-05-08 01:04 | XMS_ITS | Encounter Summary ---
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 metastatic to lymph node documented in this encounter Results US Extremity Non Vascular [...] report, please contact t he number below. Electronically signed by: Lucie Evangelista [facility] ([phone]), at 05/04/2019 3:0 7 PM ? Lucie Evangelista, Staff Physician Electronically Signed Final Report ?? 03:14 pm Narrative 05/04/2019 3:15 PM EDT Ultrasound ??of the left Axilla ? ( Signed Final 05/04/2019 03:14 pm) Report PATIENT INFO: ID #: ? [id number] ?: ??[birth year] (58 yrs) Name: ? ANNETTE OSORIO ?Visit Date: 05/04/2019 03:00 pm PERFORMED BY: Performed By: ? Monet Solis RDMS Attending: ?Jean Carlos REDDY, Lucie Castorena Referred By: ?MARLEY [facility] Location: ? [facility] SERVICE(S) PROVIDED: ??UEXTLMTL - Extremity Limited Non Vasc ular - Left ?[id number] ??- [id number] INDICATIONS: ??left lower back melanoma left axilla N1a (1/3 ??several IHC positive cells MelanA/HMB 45 ) ??resected on 06/10/2017 COMPARISON: PET CT: 02/07/19, US: 10/20/18 -------- HISTORY: -------- History of melanoma left lower back. --------- FINDINGS: --------- Title: ? Ultrasound ??of the lef t Axilla Report Findings: ?No evidence of lymph nod es or masses visualized. Procedure Note Lucie Evangelista MD - 05/04/2019Formattin g of this note might be different from the original. Ultrasound of the left Axilla (Signed F inal 05/04/2019 03:14 pm) Report PATIENT INFO: ID #: [id number] : 60 (58 y rs) Name: ANNETTE OSORIO Visit Date: 05/04 03:00 pm PERFORMED BY: Performed By: Meli Solis RDMS Attending: Lucie Evangelista MD Referred By: MARLEY ENCARNACION Location: [facility] SERVICE(S) PROVIDED: UEXTLMTL - Extremity Limited Non Vascul ar - Left [id number] - [id number] INDICATIONS: left lower back melanoma left axilla N1 a (/3 several IHC positive cells MelanA/HMB45 ) resected [...] report, please contact t he number below. 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
--- OUTSIDE RECORDS SUMMARY | 2022-05-08 01:04 | XMS_ITS | Encounter Summary ---
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 Rad Ct Scan Procedures CT Chest Abdomen Pelvis w Contrast (Generic) [facility] [address] HEMATOLOGY/[place] [address] [place] [address] Referral ID Status Reason Start Date Expiration Date Visits V isits Requested Authorized [id number] Closed Specialty 07/29/2018 09/12/2018 1 1 Service Requested Encounter Details Date Type Department Care Team Description 07/29/2018 Orders Only Hematology and Juan David Coleman Malignant melanoma Oncology at [facility] metastatic to lymph [facility] nod e (Primary Dx) [place] [address] HEMATOLOGY/ONCOLOG [phone] Y DEPT [place], [place] [address] Social History Tobacco Use Types [...] Juan David Coleman MD IMG CT ORDERABLES (ABNORMAL) Lactate Dehydrogenase (08/09/2018 12:39 PM EST) athologist Signature LDH 223 (H) 110 - 220 [facility] Specimen Anatomical Collection Method Collection Time Receive d Time (Source) Location / / Volume Laterality Blood specimen 08/09/2018 12:39 8 (specimen) PM EST 12:43 PM EST Resulting Agency Comment Spec In Lab Juan David Coleman MD CHEMISTRY ORDERABLES Performing Organization Address City/State/[place] [address] Comprehensive metabolic panel (non-fasting) (08/09/2018 12:39 PM EST) P athologist Signature Glucose Lvl 93 65 - 199 [facility] mg/dL [facility] Comment: Diabetes: >=200 mg/dL plus symp toms BUN 11 8 - 18 mg/dL [facility] Creatinine 0.92 0.70 - 1.20 mg/dL [facility] Sodium 143 135 - 145 mmol/L [facility] Potassium 4.1 3.5 - 5.0 mmol/L [facility] Comment: Please note: ??Patients with WBC >100,00 0 may have falsely elevated Potassium levels. ??For accurate Potassium quantif ication in these patients send serum separator tube (gold top) for subsequent determinations. ??Contact the Clinical Chemistry Laboratory if there are any qu estions. Chloride 105 98 - 107 mmol/L [facility] CO2 24 22 - 31 mmol/L [facility] Anion Gap 14 5 - 15 mmol/L [facility] Calcium 9.2 8.5 - 10.5 mg/dL [facility] Total Protein 7.3 6.1 - 8.0 gm/dL [facility] Albumin 4.3 3.2 - 5.2 gm/dL [facility] AST 18 0 - 30 unit/L [facility] ALT 16 0 - 30 unit/L [facility] Alk Phos 84 40 - 104 unit/L [facility] Total Bilirubin 0.3 0.2 - 1.3 mg/dL [facility] Estimated GFR 69 >=60 mL/min/1.73 m?? [facility] Comment: The eGFR was calculated using the CKD-EP I equation. As with all creatinine based estimates of kidney function, eGFR values calculated with the CKD-EPI equation are not accurate in patients wi th acute kidney failure, extremes of body mass or the acutely ill. http://What's Hot/[facility] CITY[facility] eGFR 80 >=60 mL/min/1.73 m?? [facility] Comment: The eGFR was calculated using the CKD-EP I equation. As with all creatinine based estimates of kidney function, eGFR values calculated with the CKD-EPI equation are not accurate in patients wi th acute kidney failure, extremes of body mass or the acutely ill. 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
--- OUTSIDE RECORDS SUMMARY | 2022-05-08 01:04 | XMS_ITS | Encounter Summary ---
:1960 Author Organization [facility] [place] [address] Care Team Providers Name Role Phone Loren Cortez APRN Primary Care Provider [phone] Encounter Details Date Type Department Care Team Description 10/20/2018 Hospital Encounter Ultrasound at [facility] Porsha Freeman Malignant melanoma, [facility] [place] [address] GENERAL SURGERY [phone] [place], [place] [address] Social History Tobacco Use Types [...] Diagnosis Comme nts US EXTREMITY NON Routine 10/20/2018 11:22 AM Malignant melanom a, Results for this VASCULAR LIMITED EST unspecified site procedu re are in ANATOMIC SPECIFIC the result s LEFT section. documented in this encounter Results US Extremity Non Vascular Limited Left (10/20/2018 11:22 AM EST) Anatomical Region Laterality Modality Ultrasound Specimen (Source) Anatomical Collection Method Collection Time Re ceived Time Location / / Volume Laterality 10/20/2018 11:20 AM EST Impressions 10/20/2018 11:36 AM EST ?? Small lymph nodes in the left axilla with sonographically benign features. No lymph nodes with so nographically worrisome features are seen. I have personally reviewed the image(s) and the residents interpretation and agree with the findings, Kaylynn Allen at 10/20/2018 11:29 AM Thank you for letting us participate in the care of this patient. For questions regarding this report, please contact t he number below. 11 :29 AM ?Kaylynn alberts MD Electronically Signed Final Report ?? 11:36 am Narrative 10/20/2018 11:36 AM EST Ultrasound Left Axilla ?(Signed Final 10/20/2018 11:36 am) Report PATIENT INFO: ID #: ? [id number] ?: ??60 (58 yrs) Name: ? ANNETTE OSORIO ?Visit Date: 10/20/2018 11:20 am PERFORMED BY: Performed By: ? Davis Salmeron RDMS Attending: ?Tiffany REDDY, Kaylynn Britt Resident: ? Santos REDDY, Gregg Joy Referred By: ?PORSHA FREEMAN Location: ? [place] SERVICE(S) PROVIDED: ??UEXTLMTL - Extremity Limited Non Vasc ular - Left ?[id number] ??- [id number] INDICATIONS: ??hx left mid back melanoma, interval a xillary ??surveillance --------- FINDINGS: --------- Title: ? Ultrasound Left Axilla Report Findings: ?Two lymph nodes noted, l argest measuring 1.0 x ?0.5 x 1.2 cm, both with central fatty hilum. ??No ?hypoechoic center, focal bulge, or vascularity ?present. Procedure Note Kaylynn Allen MD - 10/20/2018Formatt ing of this note might be different from the original. Ultrasound Left Axilla (Signed Final 11:36 am) Report PATIENT INFO: ID #: [id number] : 60 (58 y rs) Name: ANNETTE OSORIO Visit Date: 10/20 11:20 am PERFORMED BY: Performed By: Davis Salmeron RDMS Attending: Kaylynn Allen MD Resident: Gio Graham MD Referred By: PORSHA FREEMAN Location: [place] SERVICE(S) PROVIDED: UEXTLMTL - Extremity Limited Non Vascul ar - Left [id number] - [id number] INDICATIONS: hx left mid back melanoma, interval axi llary surveillance --------- FINDINGS: --------- Title: Ultrasound Left Axilla Report Findings: Two lymph nodes noted, larges t measuring 1.0 x 0.5 x 1.2 cm, both with central fatty h ilum. No hypoechoic center, focal bulge, or vasc ularity present. IMPRESSION Small lymph nodes in the left axilla wi th sonographically benign features. No lymph nodes with so nographically worrisome features are seen. I have personally reviewed the image(s) and the residents interpretation and agree with the findings, Kaylynn Allen at 10/20/2018 11:29 AM Thank you for letting us participate in the care of this patient. For questions regarding this report, please contact t he number below. 11 :29 AM Kaylynn Allen MD Electronically Signed Final Report 10/20 11:36 am Porsha Freeman APRN IMG US GEN ORDERABLES documented in this encounter Visit Diagnoses Diagnosis Malignant melanoma, unspecified site documented in this encounter Care Teams Weight Yardage Checker Relationship Specialty Start Date End Date Loren Cortez APRN PCP - General Family Medicine 05/06/17 [address] [place] [address] documented as of this encounter
--- OUTSIDE RECORDS SUMMARY | 2022-05-08 01:04 | XMS_ITS | Encounter Summary ---
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 Clair Markham APRN [facility] Rad Ct Scan Procedures CT Chest Abdomen Pelvis w Contrast (Generic) [facility] N[facility]h HEMATOLOGY/[place] [address] [place] [address] Referral ID Status Reason Start Expiration Visits Visits Date Date Requested Authorized [id number] New Request Specialty 09/04/2021 03/05/2023 1 1 Service Requested Encounter Details Date Type Department Care Team Description 09/04/2021 Orders Only Hematology and Clair Markham Maligna nt melanoma of torso excluding breast; Oncology at [facility] 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 [facility] [address] [place] HEMATOLOGY/ONCOL [place]GY [address] [place] [address] (Wo rk) Social History Tobacco Use Types Packs/Day Years Used Date Never Smoker Smokeless Tobacco: Never Used Alcohol Use Standard Drinks/Week Comments Yes 1 (1 standard drink = 0.6 oz pure alcoho l) Sex Assigned at Date Recorded Not on file documented as of this encounter Plan of Treatment Scheduled Orders Name Type Priority Associated Diagnoses Order S chedule CT Chest Abdomen Imaging Routine Malignant melanoma of Ex pected: 11/05/2021 Pelvis w Contrast torso excludin g breast (Approximate), (Generic) Metastatic melanoma to Expir es: 09/04/2022 lymph node documented as of this encounter Visit Diagnoses Diagnosis Malignant melanoma of torso excluding br east 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
--- OUTSIDE RECORDS SUMMARY | 2022-05-08 01:04 | XMS_ITS | Encounter Summary ---
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 Juan David Coleman MD [facility] Rad Nuclear Med Procedures PET CT Standard Plus Extremities & Head [facility] HEMATOLOGY/[place] [address] [place] [address] Referral ID Status Reason Start Date Expiration Date Visits V isits Requested Authorized [id number] Denied Specialty 08/17/2018 08/17/2019 1 0 Service Requested Reason for Visit Diagnostic Test (Routine) - Denied Specialty Diagnoses / Procedures Referred By Contact Refer red To Contact Radiology Diagnoses Malignant melanoma of torso excluding breast 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 Juan David Coleman MD [facility] Rad Nuclear Med Procedures PET CT Standard Plus Extremities & Head [facility] HEMATOLOGY/[place] [address] [place] [address] Referral ID Status Reason Start Date Expiration Date Visits V isits Requested Authorized [id number] Denied Specialty 08/17/2018 08/17/2019 1 0 Service Requested Encounter Details Date Type Department Care Team Description 02/07/2019 Hospital Encounter Nuclear Medicine at Juan David Coleman , Malignant melanoma of torso excluding breast; Marylin Padilla MD Malignant melanoma metastatic to lymph n ode [facility] [address] [place] HEMATOLOGY/ONCOL [address] OGY DEPT [phone] [place] [address] Social History Tobacco Use Types Packs/Day Years [...] Procedure Name Priority Date/Time Associated Comments Diagnosis NM PET CT STANDARD Routine 02/07/2019 9:12 AM Malignant melano ma Results for this PLUS EXTREMITIES AND EDT of torso excluding p rocedure are in HEAD breast the results Malignant melanoma section. metastatic to lymph node POCT GLUCOSE Routine 02/07/2019 7:27 AM Results f or this EDT procedure are i n the results section. documented in this encounter Results PET CT Standard Plus [...] please contact e number below. ? Narrative 02/07/2019 11:12 AM EDT EXAMINATION: PET CT STANDARD PLUS EXTREMITIES AND HEAD CLINICAL HISTORY: Stage IIIa melanoma of left lower back, left lateral lower calf subcutaneous lesion, last CT scan o n 08/09/2018 melanoma TECHNIQUE: Procedure: Following IV injec tion of 21-pfjgwy-5-deoxyglucose (FDG) a standard uptake of approximately 60 [...] TECHNIQUE: Procedure: Following IV injec tion of 52-lftjzd-8-deoxyglucose (FDG) a standard uptake of approximately 60 [...] number below. Juan David Coleman MD IMG PET ORDERABLES POCT Glucose (02/07/2019 7:27 AM EDT) athologist Signature POC Glucose 91 65 - 199 [facility] mg/dL [facility] Comment: Supplemental ranges: <140 mg/dL before meals <180 mg/dL all other times of the day Specimen Anatomical Collection Method Collection Time Receive d Time (Source) Location / / Volume Laterality Blood specimen 02/07/2019 7:27 AM 019 7:27 (specimen) EDT AM EDT Juan David Coleman MD POINT OF CARE TEST ORDERABLE S Performing Organization Address City/State/[place] [address] documented in this encounter Visit Diagnoses Diagnosis Malignant melanoma of torso excluding br east 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
--- OUTSIDE RECORDS SUMMARY | 2022-05-08 01:04 | XMS_ITS | Encounter Summary ---
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 HEMATOLOGY/[place] [address] [place] [address] Referral ID Status Reason Start Date Expiration Date Visits V isits Requested Authorized [id number] Closed Specialty 07/25/2019 09/08/2019 1 1 Service Requested Reason for Visit Reason Comments Follow-up Encounter Details Date Type Department Care Team Description 05/04/2019 Office Visit Hematology and Juan David Coleman MD [facility] HEMATOLOGY/[place] [address] Malignant melanoma of torso excluding br east (Primary Dx); Oncology at [facility] Aldair Meyer MD [facility] HEMATOLOGY/ONCOLOGY [place], [place] [id number] 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 [address] Social History Tobacco Use Types Packs/Day Years Used Date Never Smoker Smokeless Tobacco: Never Used Alcohol Use Standard Drinks/Week Comments Yes 1 (1 standard drink = 0.6 oz pure alcoho l) Sex Assigned at Date Recorded Not on file documented as of this encounter Last Filed Vital Signs Vital Sign Reading Time Taken Comments Blood Pressure 146/91 05/04/2019 3:57 PM EDT Pulse 68 05/04/2019 3:57 PM EDT Temperature 36.7 ??C (98.1 ??F) 05/04/2019 3:57 PM EDT Respiratory Rate 16 05/04/2019 3:57 PM EDT Oxygen Saturation 100% 05/04/2019 3:57 PM EDT Inhaled Oxygen Concentration - - Weight 94.7 kg (208 lb 12.8 oz) 05/04/2019 3:57 PM EDT Height 165.9 cm (5' 5.32) 05/04/2019 3:57 PM EDT Body Mass Index 34.41 05/04/2019 3:57 PM EDT documented in this encounter Progress Notes Juan David Coleman MD - 05/04/2019 4:15 PM EDT Images from the original note were not included. [facility] CLINIC NOTE REFERING PHYSICIAN: Dr. Syeda [...] color, darker and become elevated Seen by ground products director in February 2017, no bleeding no itching [...] 05/04/2019 was negative for pathologic lymph node HPI: Mrs. Shah is a 58 years old lady with the above medical history referred to melanoma clinic on 07/09/2017 to discuss follow-up options for her stage IIIa left lower back melanoma. INTERVAL HISTORY: The patient is here for left axillary ultrasound. Clinically she is been doing fairly well without any change in her daily activity. No significant change in her daily activity [...] 12.65) performed by Syeda Nair MD at [facility] MAIN OR ??? PRO BX/REMV, LYMPH NODE, DEEP AXILL Left 06/10/2017 BIOPSY OR EXCISION OF LYMPH NODE(S), OPEN, DEEP AXILLARY NODE(S) (WRVU 6.43) performed by Syeda Nair MD at [facility] MAIN OR ??? PRO EXC SKIN MALIG 3.1-4CM TRUNK, ARM, LEG N/A 06/10/2017 EXC MALIGNANT LESION, MINGO 3.1 TO 4.0CM, TRUNK (WRVU 3.17) performed by Syeda Nair MD at [facility] MAIN OR ??? PRO INTRAOP SENTINEL LYMPH ID W/DYE INJECTION N/A 06/10/2017 INTRAOPERATIVE ID (MAPPING) SENTINEL LYMPH NODE,INCLUDES INJECTION (WRVU 2.5) performed by Syeda Nair MD at [facility] MAIN OR ??? TONSILLECTOMY MEDS: ? aspirin 81 mg Tablet, Delayed Release (E.C.) aspirin ALLERGY: No Known Allergies FAMILY HX: [...] file Gets together: Not on file Attends mu-ism service: Not on file Active member of [...] in good mood and spirits BP (!) 146/91 (Patient Position: Sitting) Pulse 68 Temp 36.7 ??C (98.1 ??F) (Temporal) Resp 16 Ht 165.9 cm (5' 5.32) Wt 94.7 kg (208 lb 12.8 oz) SpO2 100% BMI 34.41 kg/m?? Eyes: Not icteric, not injected Oral: clear. Neck: Supple. No lymphadenopathy. Lungs: Bilaterally clear to auscultation, No wheezing, No crackles Heart: Regular rate and rhythm. Abdomen: Soft, no tenderness, no mass, normal active bowel sounds. Extremities: No edema, resolving phlebitis Skin: No rash, well-healed surgical scar Neuro: No focal weakness LABS: No labs today From 02/07/2019 Unremarkable CBC with differential and CMP LDH 226 IMAGING STUDIES: Left axilla ultrasound on 05/04/2019 No pathological [...] on 06/10/2017, BRAF mutation V600E positive. Today's screening left axillary ultrasound result is encouraging. I reviewed images by myself. I will have her come back in [address] scan.. If the next CT scan is negative for obvious disease, we will consider annual imaging. The patient was instructed to call us with any new symptoms or concerns. Juan David Coleman MD documented in this encounter Plan of Treatment Not on filedocumented as of this encounter Results CT Chest Abdomen Pelvis w Contrast (Generic) (08/14/2019 9:37 AM EST) Anatomical Region Laterality Modality Abdomen, Pelvis Computed Tomography Specimen (Source) Anatomical Location Collection Method / Collectio n Time Received Time / Laterality Volume Impressions 08/14/2019 10:07 AM EST There is no evidence of recurrent or metastatic disease. Thank you for letting us participate in the care of this patient. For questions regarding this report, please contact e number below. ? Electronically signed by: Danielle Helm [facility] ([phone]), at 08/14/2019 10:07 AM Narrative 08/14/2019 10:07 AM EST EXAMINATION: CT CHEST ABDOMEN PELVIS W CONTRAST (GENERIC) CLINICAL HISTORY: left lower back melano ma left axilla N1a (1/3 several IHC positive cells MelanA/[id number] ) resected o n 06/10/2017 TECHNIQUE: Helical CT of the chest, abdo men, and pelvis was performed following the intravenous administration of contra st. Administered 109.0 ml of OMNIPAQUE 350.00 mg/ml. Oral contrast was administ ered. COMPARISON: August 09, 2018, PET/CT February 07, 2019 FINDINGS: Chest: Lungs and large airways: The lungs are c lear. No pulmonary nodules are seen. There is no abnormality of the central a irways. Pleura: There is no pleural effusion or pneumothorax. Heart/vasculature: The heart is normal i n size. Incidental note is made of a bovine arch. Mediastinum and lymph nodes: No enlarged lymph nodes. Chest wall: Postoperative changes are pr esent in the left axilla. Abdomen/pelvis: Liver: Normal size and attenuation witho ut lesions. Bile ducts: Nondilated. Gallbladder: No calcified gallstones. No rmal caliber wall. Pancreas: Normal attenuation without angelica norah dilatation. Spleen: Normal. Adrenals: Normal. Kidneys: The kidneys enhance symmetrical ly. No parenchymal lesions are present. There is no dilatation of the collecting systems or ureters. Urinary Bladder: Normal. Vasculature: No aneurysm. The portal vei n and splenic vein are patent. Lymph Nodes: ??No enlarged lymph nodes. Bowel: Nondilated, no wall thickening. O rally administered contrast has reached the transverse colon. The appendix is vi sualized and is normal. Peritoneum and mesentery: No ascites, fr ee air, or loculated fluid collection. No mesenteric inflammation. Abdominal wall: Postoperative changes ar e present in the subcutaneous tissues of the left side of the back. Reproductive organs: Normal. Osseous structures: No acute osseous pat hology. Procedure Note Marquis Pierson MD - 08/14/2019 EXAMINATION: CT CHEST ABDOMEN PELVIS W C ONTRAST (GENERIC) CLINICAL HISTORY: left lower back melano ma left axilla N1a (1/3 several IHC positive cells MelanA/HMB45 ) resected o n 06/10/2017 TECHNIQUE: Helical CT of the chest, abdo men, and pelvis was performed following the intravenous administration of contra st. Administered 109.0 ml of OMNIPAQUE 350.00 mg/ml. Oral contrast was administ ered. COMPARISON: August 09, 2018, PET/CT February 07, 2019 FINDINGS: Chest: Lungs and large airways: The lungs are c lear. No pulmonary nodules are seen. There is no abnormality of the central a irways. Pleura: There is no pleural effusion or pneumothorax. Heart/vasculature: The heart is normal i n size. Incidental note is made of a bovine arch. Mediastinum and lymph nodes: No enlarged lymph nodes. Chest wall: Postoperative changes are pr esent in the left axilla. Abdomen/pelvis: Liver: Normal size and attenuation witho ut lesions. Bile ducts: Nondilated. Gallbladder: No calcified gallstones. No rmal caliber wall. Pancreas: Normal attenuation without angelica norah dilatation. Spleen: Normal. Adrenals: Normal. Kidneys: The kidneys enhance symmetrical ly. No parenchymal lesions are present. There is no dilatation of the collecting systems or ureters. Urinary Bladder: Normal. Vasculature: No aneurysm. The portal vei n and splenic vein are patent. Lymph Nodes: No enlarged lymph nodes. Bowel: Nondilated, no wall thickening. O rally administered contrast has reached the transverse colon. The appendix is vi sualized and is normal. Peritoneum and mesentery: No ascites, fr ee air, or loculated fluid collection. No mesenteric inflammation. Abdominal wall: Postoperative changes ar e present in the subcutaneous tissues of the left side of the back. Reproductive organs: Normal. Osseous structures: No acute osseous pat hology. IMPRESSION There is no evidence of recurrent or met astatic disease. Thank you for letting us participate in the care of this patient. For questions regarding this report, please contact e number below. Juan David Coleman MD IMG CT ORDERABLES Lactate Dehydrogenase (08/14/2019 7:21 AM EST) athologist Signature LDH 206 110 - 220 [facility] unit/L [facility] Specimen Anatomical Collection Method Collection Time Receive d Time (Source) Location / / Volume Laterality Blood specimen 08/14/2019 7:21 AM 019 7:25 (specimen) EST AM EST Resulting Agency Comment Spec In Lab Juan David Coleman MD CHEMISTRY ORDERABLES Performing Organization Address City/State/[place] [address] Comprehensive metabolic panel (non-fasting) (08/14/2019 7:21 AM EST) athologist Signature Glucose Lvl 100 65 - 199 [facility] mg/dL [facility] Comment: Diabetes: >=200 mg/dL plus symp toms BUN 12 8 - 18 mg/dL [facility] Creatinine 0.95 0.70 - 1.20 mg/dL [facility] Sodium 143 135 - 145 mmol/L [facility] Potassium 4.1 3.5 - 5.0 mmol/L [facility] Comment: Please note: ??Patients with WBC >100,00 0 may have falsely elevated Potassium levels. ??For accurate Potassium quantif ication in these patients send serum separator tube (gold top) for subsequent determinations. ??Contact the Clinical Chemistry Laboratory if there are any qu estions. Chloride 107 98 - 107 mmol/L [facility] CO2 23 22 - 31 mmol/L [facility] Anion Gap 13 5 - 15 mmol/L [facility] Calcium 9.2 8.5 - 10.5 mg/dL [facility] Total Protein 6.9 6.1 - 8.0 gm/dL [facility] Albumin 4.2 3.2 - 5.2 gm/dL [facility] AST 16 0 - 30 unit/L [facility] ALT 15 0 - 30 unit/L [facility] Alk Phos 77 35 - 105 unit/L [facility] Total Bilirubin 0.3 0.2 - 1.3 mg/dL [facility] Estimated GFR 66 >=60 mL/min/1.73 m?? [facility] Comment: The eGFR was calculated using the CKD-EP I equation. As with all creatinine based estimates of kidney function, eGFR values calculated with the CKD-EPI equation are not accurate in patients wi th acute kidney failure, extremes of body mass or the acutely ill. http://[employer]/[facility] eGFR 76 >=60 mL/min/1.73 m?? [facility] Comment: The eGFR was calculated using the CKD-EP I equation. As with all creatinine based estimates of kidney function, eGFR values calculated with the CKD-EPI equation are not accurate in patients wi th acute kidney failure, extremes of body mass or the acutely ill. http://[employer]/DHnkf Specimen Anatomical Collection Method Collection Time Receive d Time (Source) Location / / Volume Laterality Blood specimen 08/14/2019 7:21 AM 019 7:25 (specimen) EST AM EST Resulting Agency Comment Spec In Lab Juan David Coleman MD CHEMISTRY ORDERABLES Performing Organization Address City/State/[place] [address] documented in this encounter [...] unspecified documented in this encounter Care Teams Wine Maker Relationship Specialty Start Date End Date Loren Cortez APRN PCP - General Family Medicine 05/06/17 [address] [place] [address] documented as of this encounter
--- OUTSIDE RECORDS SUMMARY | 2022-05-08 01:04 | XMS_ITS | Encounter Summary ---
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 Rad Ct Scan Procedures CT Chest Abdomen Pelvis w Contrast (Generic) [facility] HEMATOLOGY/[place]Y [place] [address] [place] [address] Referral ID Status Reason Start Date Expiration Date Visits V isits Requested Authorized [id number] Closed Specialty 07/25/2019 09/08/2019 1 1 Service Requested Encounter Details Date Type Department Care Team Description 08/14/[address] Scan at [facility] Juan David Coleman, Malignant melanoma of torso excluding breast; [facility] 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 Electronically signed by: Danielle Helm [facility] ([phone]), at 08/14/2019 10:07 AM Juan David Coleman MD IMG CT ORDERABLES [...] Rate Site iohexol (OMNIPAQUE) 350 mg/mL Given 08/14/2019 9:37 AM EST 109 m Ls solution 0-200 mL 0-200 mL, Intravenous, ONCE PRN, 1 dose, Starting on Wed08/14/19 at 0937, Until Wed08/14/19 at 0937, Per Protocol, Warning Vesicant/Irritant Medication , Radiology Contrast, Routine iohexol (OMNIPAQUE) 350 mg/mL solution 0-50 Given 08/14/2019 9:37 AM EST 50 mLs mL 0-50 mL, Oral, ONCE PRN, 1 dose, Starting on Wed08/14/19 at 0937, Until Wed08/14/19 at 0937, Per Protocol, Warning Vesicant/Irritant Medication , Radiology Contrast, Routine documented in this encounter Care Teams Testing Lead Relationship Specialty Start Date End Date Loren Cortez APRN PCP - General Family Medicine 05/06/17 [address] [place] [address] documented as of this encounter
--- OUTSIDE RECORDS SUMMARY | 2022-05-08 01:04 | XMS_ITS | Encounter Summary ---
:1960 Author Organization [facility] [place] [address] Care Team Providers Name Role Phone DelbertLoren bob MARINE Primary Care Provider [phone] Reason for Visit Diagnostic Test (Routine) - Denied Specialty Diagnoses / Procedures Referred By Contact Refer red To Contact Radiology Diagnoses Malignant melanoma of torso excluding breast 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 Juan David Coleman MD [facility] Rad Nuclear Med Procedures PET CT Standard Plus Extremities & Head [facility] HEMATOLOGY/[place] [address] [place] [address] Referral ID Status Reason Start Date Expiration Date Visits V isits Requested Authorized [id number] Denied Specialty 08/17/2018 08/17/2019 1 0 Service Requested Encounter Details Date Type Department Care Team Description 02/07[facility]2019 [facility] HEMATOLOGY/[place] [address] DEPT [phone] [place], [place] [address] (Wo rk) Social History Tobacco Use Types [...] to lymph node documented in this encounter Visit Diagnoses Not on filedocumented in this encounter Administered Medications Inactive Administered Medications - up to 3 most recent administrations Medication Order MAR Action Action Date Dose Rate Site fludeoxyglucose (F-18) FDG Given 02/07/2019 7:38 AM 12.2 mCi Right Arm injection 12.2 mCi EDT 12.2 mCi, Intravenous, ONCE PRN, 1 dose, Starting on Wed02/07/19 at 0738, Until Wed02/07/19 at 0738, Per Protocol, Routine documented in this encounter Care Teams Banking Consultant Relationship Specialty Start Date End Date Loren Cortez APRN PCP - General Family Medicine 05/06/17 [address] [place] [address] documented as of this encounter
--- OUTSIDE RECORDS SUMMARY | 2022-05-08 01:04 | XMS_ITS | Encounter Summary ---
:1960 Author Organization [employer] [place] [address] Care Team Providers Name Role Phone Loren Cortez APRN Primary Care Provider [phone] Encounter Details Date Type Department Care Team Description 02/07/2019 Hospital Encounter Hematology and Maligna nt melanoma of torso excluding breast; Oncology at [facility] 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 [phone] Social History Tobacco Use Types Packs/Day [...] Name Priority Date/Time Associated Comments Diagnosis HEMOGRAM Routine 02/07/2019 7:11 AM Malignant melanoma Res ults for this EDT of torso excluding procedure are in breast the results Metastatic melanoma section. to lymph node DIFFERENTIAL, Routine 02/07/2019 7:11 AM Malignant melanoma Re sults for this AUTOMATED EDT of torso excluding procedure are in breast the results Metastatic melanoma section. 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 to lymph node COMPREHENSIVE Routine 02/07/2019 7:11 AM Malignant melanoma Re sults for this METABOLIC PANEL EDT of torso excluding proced ure are in (NON-FASTING) breast the results Metastatic melanoma section. to lymph node documented in this encounter Results Differential, Automated (02/07/2019 7:11 AM EDT) P athologist Signature Neutrophils % 47.1 % [facility] Neutr Abs (ANC) 2.86 1.70 - [facility] 6.10 [facility] x10(3)/[facility] LABORATORY Lymphocytes % 44.3 % [facility] Lymphocytes Abs 2.7 0.9 - 3.2 [facility] x10(3)/[facility] LABORATORY Monocytes % 6.1 % [facility] Monocyte Abs 0.4 0.3 - 0.9 [facility] x10(3)/[facility] LABORATORY Eosinophils % 1.6 % [facility] Eosinophils Abs 0.1 0.0 - 0.4 [facility] x10(3)/[facility] LABORATORY Basophils % 0.7 % [facility] Basophils Abs 0.0 0.0 - 0.1 [facility] x10(3)/[facility] LABORATORY Immature Gran % 0.20 % [facility] Comment: Immature granulocytes(IG's)percentage an d absolute count will include metamyelocytes, myelocytes, and promyelo cytes. Blood smears from CBCs yielding IG's will be scanned manually for concor dance. If this scan disagrees with the automated IG or if promyelocytes are not ed, a manual differential will be performed. Ekaterina Gran Abs 0.01 0.00 - 0.04 x10(3)/[facility] LABORATORY Specimen Anatomical Collection Method Collection Time Receive d Time (Source) Location / / Volume Laterality Blood specimen 02/07/2019 7:11 AM 019 7:19 (specimen) EDT AM EDT Resulting Agency Comment Spec In Lab Cynthia Salgado MD HEMATOLOGY ORDERABLES Performing Organization Address City/State/[place] [address] Hemogram (02/07/2019 7:11 AM EDT) athologist Signature WBC 6.1 4.0 - 9.5 [facility] x10(3)/[facility] LABORATORY RBC 4.12 4.00 - [employer] [facility] 5.21 [facility] x10(6)/[facility] LABORATORY Hemoglobin 12.3 11.7 - [facility] 15.5 gm/dL [facility] Hematocrit 38.1 35.7 - [facility] 45.8 % [facility] MCV 92.5 82.6 - [facility] 94[facility]4 [facility] LAB[facility]AT[facility] MCH 29.9 27.1 - [employer] 32.0 pg [facility] MCHC 32.3 31.7 - [employer] 35.0 gm/dL [facility] Platelets 296 145 - 357 [facility] x10(3)/[facility] LABORATORY RDWSD 44.8 37.0 - [employer] 46.0 [facility] LABORATORY RDWCV 13.2 11.5 - [facility] 14.1 % [facility] MPV 11.0 7.6 - 12.9 [facility] nRBC % Auto 0.0 % [facility] nRBC Abs Auto 0.000 0.000 - [facility] 0.000 [facility] x10(3)/[facility] LABORATORY Specimen Anatomical Collection Method Collection Time Receive d Time (Source) Location / / Volume Laterality Blood specimen 02/07/2019 7:11 AM 019 7:19 (specimen) EDT AM EDT Resulting Agency Comment Spec In Lab Cynthia Salgado MD HEMATOLOGY ORDERABLES Performing Organization Address City/State/[place] [address] (ABNORMAL) Comprehensive metabolic panel (non-fasting) (02/07/2019 7:11 AM EDT) athologist Signature Glucose Lvl 93 65 - 199 [facility] mg/dL [facility] Comment: Diabetes: >=200 mg/dL plus symp toms BUN 21 (H) 8 - 18 mg/dL [facility] Creatinine 0.85 0.70 - 1.20 mg/dL [facility] Sodium 144 135 - 145 mmol/L [facility] [...] estions. Chloride 105 98 - 107 mmol/L [facility] CO2 25 22 - 31 mmol/L [facility] Anion Gap 14 5 - 15 mmol/L [facility] Calcium 10.0 8.5 - 10.5 mg/dL [facility] Total Protein 7.1 6.1 - 8.0 gm/dL [facility] Albumin 4.2 3.2 - 5.2 gm/dL [facility] AST 22 0 - 30 unit/L [facility] ALT 20 0 - 30 unit/L [facility] Alk Phos 76 40 - 104 unit/L [facility] Total Bilirubin 0.2 0.2 - 1.3 mg/dL [facility] Estimated GFR 76 >=60 mL/min/1.73 m?? [facility] Comment: The eGFR was calculated using the CKD-EP I equation. As with all creatinine based estimates of kidney function, eGFR values calculated with the CKD-EPI equation are not accurate in patients wi th acute kidney failure, extremes of body mass or the acutely ill. [email or web address] eGFR 88 >=60 mL/min/1.73 m?? [facility] Comment: The eGFR was calculated using the CKD-EP I equation. As with all creatinine based estimates of kidney function, eGFR values calculated with the CKD-EPI equation are not accurate in patients wi th acute kidney failure, extremes of body mass or the acutely ill. [email or web address] Specimen Anatomical Collection Method Collection Time Receive d Time (Source) Location / / Volume Laterality Blood specimen 02/07/2019 7:11 AM 019 7:19 (specimen) EDT AM EDT Resulting Agency Comment Spec In Lab Juan David Coleman MD CHEMISTRY ORDERABLES Performing Organization Address City/[facility]/[place] [address] (ABNORMAL) Lactate Dehydrogenase (02/07/2019 7:11 AM EDT) P athologist Signature LDH 226 (H) 110 - 220 [facility] unit/L [facility] Specimen Anatomical Collection Method Collection Time Receive d Time (Source) Location / / Volume Laterality Blood specimen 02/07/2019 7:11 AM 019 7:19 (specimen) EDT AM EDT Resulting Agency Comment Spec In Lab Juan David Coleman MD CHEMISTRY ORDERABLES Performing Organization Address City/[facility]/[place] [address] documented in this encounter Visit Diagnoses Diagnosis Malignant melanoma of torso excluding br east 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
--- OUTSIDE RECORDS SUMMARY | 2022-05-08 01:04 | XMS_ITS | Encounter Summary ---
:1960 Author Organization [facility] [place] [address] Care Team Providers Name Role Phone Loren Cortez APRN Primary Care Provider [phone] Encounter Details Date Type Department Care Team Description 08/09/2018 Hospital Encounter Hematology and Maligna nt melanoma Oncology at [facility] [place] [address] Social History Tobacco Use Types Packs/Day [...] Priority Date/Time Associated Comments Diagnosis HEMOGRAM STAT 08/09/2018 12:39 Malignant melanoma Resul ts for this PM EST metastatic to lymph procedur e are in node the results section. DIFFERENTIAL, STAT 08/09/2018 12:39 Malignant melanoma Resu lts for this AUTOMATED PM EST metastatic to lymph procedur e are in node the results section. CBC (WITH DIFF) STAT 08/09/2018 12:39 Malignant melanoma PM EST metastatic to lymph node LACTATE DEHYDROGENASE STAT 08/09/2018 12:39 Malignant melan alonso Results for this PM EST metastatic to lymph procedur e are in node the results section. COMPREHENSIVE STAT 08/09/2018 12:39 Malignant melanoma Resu lts for this METABOLIC PANEL PM EST metastatic to lymph proce dure are in (NON-FASTING) node the results section. documented in this encounter Results Differential, Automated (08/09/2018 12:39 PM EST) P athologist Signature Neutrophils % 50.8 % [facility] Neutr Abs (ANC) 3.68 1.70 - [facility] 6.10 [facility] x10(3)/[facility] LABORATORY Lymphocytes % 42.1 % [facility] Lymphocytes Abs 3.0 0.9 - 3.2 [facility] x10(3)/[facility] LABORATORY Monocytes % 5.1 % [facility] Monocyte Abs 0.4 0.3 - 0.9 [facility] x10(3)/[facility] LABORATORY Eosinophils % 1.1 % [facility] Eosinophils Abs 0.1 0.0 - 0.4 [facility] x10(3)/[facility] LABORATORY Basophils % 0.6 % [facility] Basophils Abs 0.0 0.0 - 0.1 [facility] x10(3)/[facility] LABORATORY Immature Gran % 0.30 % [facility] Comment: Immature granulocytes(IG's)percentage an d absolute count will include metamyelocytes, myelocytes, and promyelo cytes. Blood smears from CBCs yielding IG's will be scanned manually for concor dance. If this scan disagrees with the automated IG or if promyelocytes are not ed, a manual differential will be performed. Ekaterina Gran Abs 0.02 0.00 - 0.04 x10(3)/[facility] MAR Y [facility] LABORATORY Specimen Anatomical Collection Method Collection Time Receive d Time (Source) Location / / Volume Laterality Blood specimen 08/09/2018 12:39 8 (specimen) PM EST 12:43 PM EST Resulting Agency Comment Spec In Lab Juan David Coleman MD HEMATOLOGY ORDERABLES Performing Organization Address City/State/[place] [address] (ABNORMAL) Hemogram (08/09/2018 12:39 PM EST) Analysis Performed At Patho logist Time Signature WBC 7.2 4.0 - 9.5 [facility] x10(3)/[facility] LABORATORY RBC 3.98 (L) 4.00 - [facility] 5.21 [facility] x10(6)/[facility] LABORATORY Hemoglobin 11.7 11.7 - [facility] 15.[facility] gm/dL [facility] Hematocrit 36.5 35.7 - [facility] 45.8 % [facility] MCV 91.7 82.6 - [facility] 94.4 [facility] LAB[facility] MCH 29.4 27.1 - [facility] 32.0 pg [facility] MCHC 32.1 31.7 - [facility] 35.0 gm/dL [facility] Platelets 317 145 - 357 [facility] x10(3)/[facility] LABORATORY RDWSD 43.3 37.0 - [facility] 46.0 [facility] LABORATORY RDWCV 12.9 11.5 - [facility] 14.1 % [facility] LABORAT[facility] MPV 10.6 7.6 - 12.9 [facility] LABORATORY nRBC % Auto 0.0 % [facility] nRBC Abs Auto 0.000 0.000 - [facility] 0.000 [facility] x10(3)/[facility] LABORATORY Specimen Anatomical Collection Method Collection Time Receive d Time (Source) Location / / Volume Laterality Blood specimen 08/09/2018 12:39 8 (specimen) PM EST 12:43 PM EST Resulting Agency Comment Spec In Lab Juan David Coleman MD HEMATOLOGY ORDERABLES Performing Organization Address City/State/[place] [address] Comprehensive metabolic panel (non-fasting) (08/09/2018 12:39 PM EST) P athologist Signature Glucose Lvl 93 65 - 199 [facility] mg/dL [facility] Comment: Diabetes: >=200 mg/dL plus symp toms BUN 11 8 - 18 mg/dL [facility]OR[facility] Creatinine 0.92 0.70 - 1.20 mg/dL [facility] Sodium 143 135 - 145 mmol/L [facility] Potassium 4.1 3.5 - 5.0 mmol/L [facility] Comment: Please note: ??Patients with WBC >100,00 0 may have falsely elevated Potassium levels. ??For accurate Potassium quantif ication in these patients send serum separator tube (gold top) for subsequent determinations. ??Contact the Clinical Chemistry Laboratory if there are any qu estions. Chloride 105 98 - 107 mmol/L [facility] CO2 24 22 - 31 mmol/L [facility] Anion Gap 14 5 - 15 mmol/L [facility] Calcium 9.2 8.5 - 10.5 mg/dL [facility] Total Protein 7.3 6.1 - 8.0 gm/dL [facility] LABORATORY Albumin 4.3 3.2 - 5.2 gm/dL [facility] AST 18 0 - 30 unit/L [facility] ALT 16 0 - 30 unit/L [facility] Alk Phos 84 40 - 104 unit/L [facility] Total Bilirubin 0.3 0.2 - 1.3 mg/dL [facility] Estimated GFR 69 >=60 mL/min/1.73 m?? [facility] Comment: The eGFR was calculated using the CKD-EP I equation. As with all creatinine based estimates of kidney function, eGFR values calculated with the CKD-EPI equation are not accurate in patients wi th acute kidney failure, extremes of body mass or the acutely ill. http://[employer]/[facility] eGFR 80 >=60 mL/min/1.73 m?? [facility] Comment: The eGFR was calculated using the CKD-EP I equation. As with all creatinine based estimates of kidney function, eGFR values calculated with the CKD-EPI equation are not accurate in patients wi th acute kidney failure, extremes of body mass or the acutely ill. [email or web address] Specimen Anatomical Collection Method Collection Time Receive d Time (Source) Location / / Volume Laterality Blood specimen 08/09/2018 12:39 8 (specimen) PM EST 12:43 PM EST Resulting Agency Comment Spec In Lab Juan David Coleman MD CHEMISTRY ORDERABLES Performing Organization Address City/State/[place] [address] (ABNORMAL) Lactate Dehydrogenase (08/09/2018 12:39 PM EST) P athologist Signature LDH 223 (H) 110 - 220 [facility] unit/L [facility] LABOR[facility]ORY Specimen Anatomical Collection Method Collection Time Receive d Time (Source) Location / / Volume Laterality Blood specimen 08/09/2018 12:39 8 (specimen) PM EST 12:43 PM EST Resulting Agency Comment Spec In Lab Juan David Coleman MD CHEMISTRY ORDERABLES Performing Organization Address City/[facility]/[place] [address] documented in this encounter Visit Diagnoses Diagnosis Malignant melanoma metastatic to lymph n ode documented in this encounter Care Teams Net Technical Architect Relationship Specialty Start Date End Date Loren Cortez APRN PCP - General Family Medicine 05/06/17 [address] [place] [address] documented as of this encounter
--- OUTSIDE RECORDS SUMMARY | 2022-05-08 01:04 | XMS_ITS | Clinical Summary ---
:1960 Author Organization [facility] [place] [address] Care Team Providers Name Role Phone Loren Cortez MARINE Primary Care Provider [phone] Allergies No known active allergies Medications Medication Sig Dispensed Refills Start Date End Date Status aspirin 81 mg Tablet, Take 81 mg by 0 Active Delayed Release (E.C.) mouth daily. 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/06/2017 Family History Relation Status Comments Brother 1 Alive Brother 2 Alive Father Alive Mother Alive Social History Tobacco Use Types Packs/Day Years Used Date Never Smoker Smokeless Tobacco: Never Used Tobacco Cessation: Counseling Given: No Alcohol Use Standard Drinks/Week Comments Yes 1 (1 standard drink = 0.6 oz pure alcoho l) Sex Assigned at Date Recorded Not on file Last Filed Vital Signs Vital Sign Reading Time Taken Comments Blood Pressure 134/82 08/13/2020 10:37 AM EST Pulse 79 08/13/2020 10:37 AM EST Temperature 36.3 ??C (97.3 ??F) 08/13/2020 10:37 AM EST Respiratory Rate 16 08/13/2020 10:37 AM EST Oxygen Saturation 100% 08/13/2020 10:37 AM EST Inhaled Oxygen Concentration - - Weight 83.9 kg (185 lb) 09/04/2021 3:11 PM EST Height 165.5 cm (5' 5.16) 08/14/2019 10:58 AM EST Body Mass Index 30.64 08/14/2019 10:58 AM EST Plan of Treatment Health Maintenance Due Date Last Done Comments Covid-19 Vaccine (#1) 1965 HIV screen 1978 Hepatitis C Screening 1978 Lipid Screening 1978 Tdap adult 1979 Tetanus vaccine 1979 HPV test 1990 PAP Smear 1990 Breast Cancer Share Decision 2000 Needed Colonoscopy 2005 Breast Cancer screening 2010 Zoster vaccine (1 of 2) 2010 Advance Directive 2015 Influenza (Flu) vaccine (1 of 1 - 06/04/2022 Influenza standard series) Diabetes Screening (HgbA1C or 08/13/2023 08/13/2020, 2018, Glucose) 02/07/2019, Additional history exists Insurance Payer Benefit Plan / Subscriber ID Effective Dates Phone Addre ss Type Group MVP [facility] [id number] 2020-Presen [phone] [address] [place] [address] Advance Directives Latest Code Status on File Code Status Date Activated Date Inactivated Comments Full Code 06/10/2017 2:51 PM 06/10/2017 10:56 PM Does patient have capacity to make decision: Yes Care Teams Employment Educational Coord Relationship Specialty Start Date End Date Loren Cortez APRN PCP - General Family Medicine 05/06/17 [address] [place], [place] [address]
--- OUTSIDE RECORDS SUMMARY | 2022-05-08 01:04 | XMS_ITS | Encounter Summary ---
:1960 Author Organization [facility] [place] [address] Care Team Providers Name Role Phone DelbertLoren bob MARINE Primary Care Provider [phone] Reason for Visit Diagnostic Test (Routine) - Canceled Specialty Diagnoses / Procedures Referred By Contact Refer red To Contact Radiology Diagnoses Malignant melanoma of torso excluding breast 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 Juan David Coleman MD [facility] Rad Ct Scan Procedures CT Chest Abdomen Pelvis w Contrast (Generic) [facility] HEMATOLOGY/[place] [address] [place] [address] Referral ID Status Reason Start Expiration Visits Visits Date Date Requested Authorized [id number] Canceled Specialty 08/04/2021 01/31/2022 1 1 Service Requested Encounter Details Date Type Department Care Team Description 08/11/[address] Scan at [facility] Juan David Coleman, [place] [facility] (P-INCONVENIENT DATE Drive [facility] [place], [place] [address] HEMATOLOGY/ONCOL [phone] [place] [address] Social History Tobacco Use Types Packs/Day Years [...] filedocumented as of this encounter Visit Diagnoses Not on filedocumented in this encounter Care Teams [employer] Assistant Relationship Specialty Start Date End Date Loren Cortez APRN PCP - General Family Medicine 05/06/17 [address] [place] [address] documented as of this encounter
--- OUTSIDE RECORDS SUMMARY | 2022-05-08 01:05 | XMS_ITS | Encounter Summary ---
:1960 Author Organization [facility] Address [address] [place] [address] Care Team Providers Name Role Phone Loren Cortez APRN Primary Care Provider [phone] Reason for Visit Reason Comments Skin Check Encounter Details Date Type Department Care Team Description 01/12/2018 Office Visit Dermatology at [facility] [place] story of melanoma; David Coleman MD Davies angioma; [address] [facility] Lentigines; [place] [address] [address] Varicose veins of left lower extremity; [phone] HEAT SK (seborrheic keratosis); RD[facility]DERMATOL[facility] Dermatofibroma; [place], [place] [address] Multiple benign nevi Social History Tobacco Use Types Packs/Day Years Used Date Never Smoker Smokeless Tobacco: Never Used Alcohol Use Standard Drinks/Week Comments Yes 1 (1 standard drink = 0.6 oz pure alcoho l) Sex Assigned at Date Recorded Not on file documented as of this encounter Progress Notes Carline Franco MD - 01/12/2018 8:15 AM EDT DERMATOLOGY ESTABLISHED PATIENT CLINIC NOTE Date of service: 01/12/2018 Rosa Shah : 1960 Provider: Carline Franco [...] Franco 05/06/17 HPI Rosa Shah is a 57 y.o. year old female, established patient last seen by me on 08/17/2017. Here today for a 3 month full skin examination. No significant changes in her health since her last visit. Feeling well. Denies new unintentional weight loss, fatigue. No new lumps/bumps/nodes. Patient repots a cluster of blue vessels on her left [place], present for 3 months, tender to touch; denies bleeding or warmth to touch. She would like to discuss treatment options today. MEDS: No current outpatient prescriptions on file. No current facility-administered medications for this visit. ADR: No Known Allergies ROS General: feeling well Skin: denies other skin complaints Denies cough, headache, shortness of breadth EXAM General: NAD, pleasant, cooperative Skin: The entire skin surface was examined, including the face, neck, chest, abdomen, back. The arms and legs, including the palms, soles, fingers and between the toes. No lymphadenopathy. Significant skin findings: A. Well healed scar per skin history. No repigmentation or lymphadenopathy. B. Multiple 0.2-0.4cm bright red, well-demarcated papules ?? C. Lateral cheeks, upper back. 0.3-0.6cm light-brown evenly pigmented, well- demarcated macule D. Scattered 0.3-0.5cm, medium-brown, evenly-pigmented macules and papules. Including an 0.8 cm medium-brown macule on the central back All with regular pigment pattern on dermoscopy. No pigmented lesions suspicious for melanoma. E. Leftshin: cluster of small vericosities with induration and tenderness F. Torso and extremities: Scattered 0.4-0.6 cm pink-brown papules/plaque with waxy stuck on appearance. ?? G. Right knee: firm papule, centrally raised and sclerotic, with peripheral hyperpigmentation and dimpling with lateral pressure. ASSESSMENT/PLAN: A. H/O Melanoma - Will continue to monitor -Being followed by Hem Onc B. Davies Angiomas - Discussed benign nature of lesion and provided reassurance. No treatment necessary at this time. ?? C. Solar Lentigines - Sun avoidance, protective clothing and the use of SPF 30 sunscreen is advised. Observe closely forskin changes and call if such occurs. D. Benign appearing nevi, patient reassured - Patient instructed to return to clinic for re-evaluation of area if notes change, growth, bleeding, etc. - Advised to watch for anything new or changing. ? E. Cluster of Vericose Veins - Referral to PCP F. Seborrheic Keratosis - Patient reassured lesions are benign in nature -Patient advised to call, should they become inflamed or irritated ?? G. Dermatofibroma (DF) - Discussed benign nature of lesion and provided reassurance. No treatment necessary at this time. Follow up: Return to clinic in 3 months for full skin exam, or sooner if needed. Appointment made before exiting. Patient instructed to call with questions or concerns. Patient referred to PCP for f/u vericose veins. I am documenting this encounter acting as the scribe for and in the presence of Dr. Franco: VALENTIN GUADALUPE LPN and Lolita Phillips, Clinical Scribe I performed the above scribed service and agree with the accuracy of the documentation in this encounter. Carline Franco MD Human Resources Assistant Manager of Dermatology, Department of Special Education Preschool TeacherHuman Resources Assistant Managerfabricator artificial breast (Dermatopathology) [facility] documented in this encounter Plan of Treatment Not on filedocumented as of this encounter Visit Diagnoses Diagnosis History of melanoma Personal history of malignant melanoma o f skin Davies angioma Nevus, non-neoplastic Lentigines Other dyschromia Varicose veins of left lower extremity SK (seborrheic keratosis) Other seborrheic keratosis Dermatofibroma Benign neoplasm of skin, site unspecifie d Multiple benign nevi Benign neoplasm of skin, site unspecifie d documented in this encounter Care Teams Tree Girdler Relationship Specialty Start Date End Date Loren Cortez APRN PCP - General Family Medicine 05/06/17 [address] [place] [address] documented as of this encounter
--- OUTSIDE RECORDS SUMMARY | 2022-05-08 01:05 | XMS_ITS | Encounter Summary ---
:1960 Author Organization [facility] [place] [address] Care Team Providers Name Role Phone DelbertLoren bob MARINE Primary Care Provider [phone] Reason for Visit Auth/Cert Specialty Diagnoses / Procedures Referred By Contact Refer red To Contact Diagnoses Melanoma in situ of back BACK MELANOMA Procedures PRO EXC SKIN MALIG 3.1-4CM TRUNK, ARM, LEG PRO BX/REMV, LYMPH NODE, DEEP AXILL PRO BIOPSY/EXCISION, LYMPH NODE(S) PRO INTRAOP SENTINEL LYMPH ID W/DYE INJECTION EXC MALIGNANT LESION, MINGO 3.1 TO 4.0CM, TRUNK (WRVU 3.17) BIOPSY OR EXCISION OF LYMPH NODE(S), OPEN, DEEP AXILLARY NODE(S) (WRVU 6.43) BIOPSY OR EXCISION OF LYMPH NODE(S), OPEN, GROIN (WRVU 3.79) INTRAOPERATIVE ID (MAPPING) SENTINEL LYMPH NODE,INCLUDES INJECTION (WRVU 2.5) MODIFIER SENTINEL NODE EXCISION Referral ID Status Reason Start Date Expiration Date Visits Requ ested Visits Authorized [id number] 1 1 Encounter Details Date Type Department Care Team Description 06/10/2017 Surgery Main Operating Room Syeda Abbott V, EXC MALIGNANT LESION, Marylin Padilla MD MINGO 3.1 TO 4.0CM, TRUNK [facility] (WRVU 3.17) [place] [address] [place] [address] [phone] Social History Tobacco Use Types Packs/Day Years Used Date Never Smoker Smokeless Tobacco: Never Used Alcohol Use Standard Drinks/Week Comments Yes 1 (1 standard drink = 0.6 oz pure alcoho l) Sex Assigned at Date Recorded Not on file documented as of this encounter Last Filed Vital Signs Vital Sign Reading Time Taken Comments Blood Pressure 141/77 06/10/2017 1:27 PM EDT Pulse 68 06/10/2017 1:27 PM EDT Temperature 37 ??C (98.6 ??F) 06/10/2017 1:27 PM EDT Respiratory Rate - - Oxygen Saturation 100% 06/10/2017 1:27 PM EDT Inhaled Oxygen Concentration - - Weight - - Height - - Body Mass Index - - documented in this encounter Discharge Instructions Discharge InstructionsEden Trimble RN - 06/10/2017 6:24 PM EDT POST ANESTHESIA INSTRUCTIONS Go home, rest, use caution on stairs. Change positions slowly. Do not smoke if you are alone. Diet light to regular as tolerated today. If nausea occurs start with clear liquids and progress slowly. No driving, operating machinery, alcoholic beverages and no important decisions for 24 hours. Monitor IV site for signs and symptoms of infection: increasing redness, swelling, foul drainage, ifoccurs contact M.D. Patients who have had endotrachial tubes (this tube, used by anesthesia department, is passed down your throat after you are asleep, to ensure safe air passage during your operation). A sore throat is normal due to the tube. Cold liquids or soothing lozenges will help ease the discomfort. The generalized muscle aches are due to the medication given to you just before the tube is inserted. As the medication wears off, you may develop muscle soreness, which usually goes away in 12-24 hours. Patient InstructionsMaida Ayers MD - 06/10/2017 3:02 PM EDT Instructions following Soft Tissue Surgery What to Expect Following Surgery: Swelling and/or bruising under and around the incision is normal. It is usually greatest on the second or third day following surgery. You may also feel the sensation of swelling or firmness that can last for a month or more Your scar will be most visible for 1-2 months following your operation and will gradually fade. As it heals, a scar looks more pink or red than the skin around it. You may feel a ???healing ridge?? directly under the incision. This is normal and will go away whenhealing is complete. The skin just above and below your incision will feel numb. This will improve over several months but some patients may have long-term decrease in sensation over these areas. Incision Care: Keep dressing on your incision for the next 2 days, then you may remove dressing and leave incision open to air. Remove dressing and replace with dry gauze if it becomes saturated or wet in the next 2 days, replace as needed. If there are pieces of tape directly on the skin (steri-strips), please leave them on until they fall off on their own. You may trim them back as they peel up, or just remove them after 2 weeks. Or youmay have surgical glue on your incision which has a purplish hue. This will wear away on it's own over the next couple weeks. Once dressing is removed in 2 days you may shower and get incision wet. Pat dry immediately following. Do not scrub area vigorously for the next 2 weeks. Do not soak incision under water (i.e. bath or swimming) for the next 3 weeks to prevent a wound infection. Do not use any ointments/salves/Vitamin E on the incision until after your first follow-up appointment as these may impair early wound healing Incisions are sensitive to sunlight. For 1 year after surgery you should use sunscreen when outdoorsfor long periods of time to prevent permanent darkening of the scar. Diet & Activity: No restrictions in your diet are necessary. Activity as tolerated by your comfort level. NO DRIVING for at least 8 hours following any dose of an opioid pain medication if one was prescribed for you. Pain Management: Take acetaminophen (Tylenol) 1000mg every 8 hours for the first 3-5 days following surgery to help minimize pain. You may also use NSAIDS like ibuprofen (motrin, advil), naproxen (Naprosyn, Aleve). Use opioid (oxycodone) pain medications for severe pain, and do not take with alcohol. Opioid medications typically cause constipation, so we suggest using a stool softener in addition (metamucil, colace...etc.) You may apply ice or cold packs to the incision for 15-20 minutes several times a day for the first 2-3 days following surgery to help with discomfort Follow-up Appointment: Will be scheduled with Dr. Abbott in 2-3 weeks Please call [phone] to confirm date and time of your appointment if you do not hear from us in the week. Future Appointments Date Time Provider Department Center 07/09/2017 8:45 AM Syeda Abbott MD [facility] 08/17/2017 4:30 PM Carline Franco MD [facility] For suture removal: Please call the general surgery clinic on post operative day 10 (06/20/17) to discuss wound with nurses and determine if suture removal is okay. If okay for removal, you make make an appointment locally. Call Doctor for: Worsening redness or drainage from your incision lasting longer than 5 days following surgery Any foul-smelling drainage from the incision Fevers greater than 101 degrees F Persistent nausea or vomiting (this may be related to opioid pain medications) Phone number for questions: [phone] before 5 PM weekdays [phone] after 5 PM and on weekends/holidays documented in this encounter H&P Notes Maida Ayers MD - 06/10/2017 2:42 PM EDT Surgery Interval H&P ID: Rosa Shah is a 56 y.o. female with a history of mid-back malignant melanoma who is here for wide excision and SLNB. No changes in health since her last clinic visit with Dr. Abbott on 05/21/2017 Patient Vitals for the past 24 hrs: BP Temp Temp src Pulse SpO2 06/10/17 1327 141/77 37 ??C (98.6 ??F) Temporal 68 100 % NAD, A&O Regular rate Unlabored on RA Soft, NTND Well perfused extremities A/P: Rosa Shah is a 56 y.o. female who presents for the reasons listed above. Procedure and risks have been explained to the patient and all questions were answered. Informed consent has been obtained. Pt is ready for the OR. Maida Ayers MD documented in this encounter Miscellaneous Notes Op Note - Syeda Abbott MD - 06/10/2017 6:03 PM EDT [facility] Operative Note Patient Name: Rosa Shah : [id number] MR#: [id number] Case Date: 06/10/2017 Surgeon: Surgeon(s) and Role: * Syeda Abbott MD - Primary * Maida Ayers MD - Resident-Surgeon Carroll Preoperative diagnosis: BACK MELANOMA Postoperative diagnosis: BACK MELANOMA Procedure(s) (LRB): EXC MALIGNANT LESION, MINGO 3.1 TO 4.0CM, TRUNK (WRVU 3.17) (N/A) BIOPSY OR EXCISION OF LYMPH NODE(S), OPEN, DEEP AXILLARY NODE(S) (WRVU 6.43) (Left) INTRAOPERATIVE ID (MAPPING) SENTINEL LYMPH NODE,INCLUDES INJECTION (WRVU 2.5) (N/A) MODIFIER SENTINEL NODE EXCISION (N/A) ADJACENT TISSUE TRANSFER OR REARRANGEMENT; 30.1 TO 60.0 SQ CM, BACK (WRVU 12.65) (Left) Anesthesia: General Estimated Blood Loss: 15 mL Specimens removed during surgery: left mid back melanoma, left axillary SLN 1-3 Drains: Surgical Closure: Primary Closure - closure of ALL tissue levels during the original surgery regardless of wires, wickes, drains, or other devices extruding through the incision Disposition: awakened from anesthesia, extubated and taken to the recovery room in a stable condition, having suffered no apparent untoward event. Condition: doing well without problems (Please see the Surgical Encounter Summary for any Implant and Specimen details pertinent to this patient.) Findings: left mid back melanoma excised with 1.5cm margins for a total defect of 3.2cm x 9cm. Defect closed by tissue transfer of flaps measuring 9cm x 2cm superior and inferior for a total secondary defect = 36cm2. Patient mapped to three SLN. #1: 71,910 blue; #2: 52,040, not blue, #3: 87,419 blue. Remaining count 115. There was a deep subpectoral/infraclavicular LN with counts measuring 12,651 which was not removed due to difficult location and low counts. No activity in supraclavicular area by gamma probe. Indications for surgery: Rosa Shah is a 56 y.o. year old female with no significant PMH now with biopsy proven malignant melanoma superficial spreading type of the left mid- back, 1.48 mm thickness, non-identifed ulceration, 6 mitoses per mm2 (pT2a per AJCC TNM staging, 7th edition). Lymph nodes are clinically negative. Clinical stage IIA. Plan for wide excision with 1-2 cm margins of the left mid-back melanoma, lymphatic mapping, SLNB with lymphoscintigraphy. I explained the implications, indications and alternatives to the proposed treatment plan as well as the risks, including infection, bleeding/hematoma, seroma, need for additional surgery, lymphedema. Consent form has been signed. Specimens to pathology: 1. Wide local excision of the left mid back melanoma oriented with short stich marking the superior 12 o'clock position and long stich marking the lateral 9 o'clock position. 2. Left axillary sentinel node labeled #1 3. Left axilllary sentinel node labeled #2 4. Left axillary sentinel node labeled #3 Procedure in detail: Ms. Shah was identified in the preop holding area. She was brought to nuclearmedicine where Technetium 99 sulfur colloid was injected intradermally beneath the scar on her left mid back. She underwent lymphoscintigraphy which showed multiple uptake in her left axilla, subpectoral and supraclavicular area. She was then brought to the operating room where monitoring lines and Venodyne boots were placed. General anesthesia was induced and she was intubated without complications.A formal timeout procedure was performed pursuant to and in compliance with [facility] operative policies.She was positioned in the right lateral decubitus position with proper padding and an axillary roll.Lymphazurin was injected into the dermal tissue surrounding the scar. Her back was prepped with Chloraprep and sterile drapes were placed. A 1.5 cm wide local excision incision was marked out overlying the previous biopsy scar for a resulting excision measuring 3.2cm x 9cm. Local analgesia was injected subcutaneously. An incision was madesharply and carried down using electrocautery through the dermis and underlying soft tissue to the muscular fascia. The skin and underlying subcutaneous fat and was removed to the level of the muscularfascia and sent as a specimen labeled and oriented as described above. The wound was irrigated and hemostasis was obtained. In order to close the significant defect, full thickness skin flaps were created by dissecting the subcutaneous tissue superiorly and inferiorly off of the muscle fascia creating flaps measuring: measuring 9cm x 2cm superior and inferior for a total secondary defect = 36cm2. THeflaps were brought together to fill the defect and sutured in place with interrupted 2-0 vicryl sutures. The wide local excision dermis was reapproximated with a complex layer of numerous interrupted 3-0 Vicryl deep dermal stiches. The skin was reapproximated with running 2-0 prolene suture. The area was cleaned and dried and covered with xeroform, gauze and tape. Next the patient was re-positioned in the supine position. The left axilla and neck was prepped with cholorprep and sterile drapes placed. Using the gamma probe the left axilla was probed to identify an area of uptake. Local analgesia was injected subcutaneously and a 3 cm long incision was made along the inferior hairline. Dissection was carried down through clavipectoral fascia into the tyron tissue.The gamma probe identified an area of tyron uptake and this was dissected free from its lymphareolar attachments. Clips were placed on the lymphatic channels to prevent seroma formation. The node wasremoved and sent to pathology as sentinel node #1. The ex vivo tyron counts are listed above. There was remaining activity and an additional two sentinel nodes were identified in the low and high axilla. These were removed in the same fashion and sent to pathology as SLN #1 and SLN #3. The remaining count was 116, which is less than 10% of the hottest node, thereby confirming that all sentinel lymph nodes have been removed in the left axillary region. There was some activity in the subpectoral, infraclavicular area that was in the area of the subclavian artery and vein. This was counted and was found to be 12,000. This was less than 20% of the hottest node and in a very difficult location so the decision was made to not continue dissection. The supraclavicular and cervical neck was examined with the gamma probe and there was no hot activity identified. The sentinel lymph node axillary wound was irrigated and hemostasis was obtained. Surgicel snow was placed in the wound given the extensive dissection. The sentinel node incision was brought together with deep dermal 3-0 Vicryl stiches and closed with a running 4-0 Monocryl subcuticular stich. Dermabond was placed. A time out was performed and all counts were reported to me as correct. The patient was extubated inthe OR and taken to the recovery room in hemodynamically stable condition. Infection Bundle used? N/A Attestation: Case Date: 06/10/2017 I was present and I participated during the entire procedure (does not need to include opening and closing). SYEDA ABBOTT MD 06/10/2017 Brief Op Note - Syeda Abbott MD - 06/10/2017 6:00 PM EDT Brief Operative Note Patient Name: Rosa Shah : [id number] MR#: [id number] Case Date: 06/10/2017 Surgeon: Surgeon(s) and Role: * Syeda Abbott MD - Primary * Maida Ayers MD - Resident-Surgeon Carroll Preoperative diagnosis: BACK MELANOMA Postoperative diagnosis: BACK MELANOMA Procedure(s) (LRB): EXC MALIGNANT LESION, MINGO 3.1 TO 4.0CM, TRUNK (WRVU 3.17) (N/A) BIOPSY OR EXCISION OF LYMPH NODE(S), OPEN, DEEP AXILLARY NODE(S) (WRVU 6.43) (Left) INTRAOPERATIVE ID (MAPPING) SENTINEL LYMPH NODE,INCLUDES INJECTION (WRVU 2.5) (N/A) MODIFIER SENTINEL NODE EXCISION (N/A) ADJACENT TISSUE TRANSFER OR REARRANGEMENT; 30.1 TO 60.0 SQ CM, BACK (WRVU 12.65) (Left) Anesthesia: General Findings: left mid back melanoma excised with 1.5cm margins for a total defect of 3.2cm x 9cm. Defect closed by tissue transfer of flaps measuring 9cm x 2cm superior and inferior for a total secondary defect = 36cm2. Patient mapped to three SLN. #1: 71,910 blue; #2: 52,040, not blue, #3: 87,419 blue. Remaining count 115. There was a deep subpectoral/infraclavicular LN with counts measuring 12,651 which was not removed due to difficult location and low counts. No activity in supraclavicular area by gamma probe. Complications: none Fluids: 900cc Estimated Blood Loss: 15cc Drains: NA Disposition: awakened from anesthesia, extubated and taken to the recovery room in a stable condition, having suffered no apparent untoward event. Condition: doing well without problems Infection Bundle used? N/A Attestation: Case Date: 06/10/2017 I was present and I participated during the entire procedure (does not need to include opening and closing). (Please see the Surgical Encounter Summary for any Implant and Specimen details pertinent to this patient.) documented in this encounter Plan of Treatment Not on filedocumented as of this encounter Procedures Procedure Name Priority Date/Time Associated Comments Diagnosis SPECIMEN TO PATHOLOGY Routine 06/10/2017 5:40 PM Results for this EDT procedure are i n the results section. SPECIMEN TO PATHOLOGY Routine 06/10/2017 5:19 PM Results for this EDT procedure are i n the results section. SPECIMEN TO PATHOLOGY Routine 06/10/2017 5:17 PM Results for this EDT procedure are i n the results section. SPECIMEN TO PATHOLOGY Routine 06/10/2017 4:16 PM Results for this EDT procedure are i n the results section. SURGICAL PATHOLOGY Routine 06/10/2017 4:15 PM Res ults for this REPORT EDT procedure are i n the results section. ADJACENT TISSUE 06/10/2017 3:09 PM BACK MELANOMA TRANSFER OR EDT REARRANGEMENT; 30.1 TO 60.0 SQ CM, BACK (WRVU 12.65) MODIFIER SENTINEL NODE 06/10/2017 3:09 PM BACK MELANOM A EXCISION EDT INTRAOPERATIVE ID 06/10/2017 3:09 PM BACK MELANOMA (MAPPING) SENTINEL EDT LYMPH NODE,INCLUDES INJECTION (WRVU 2.5) BIOPSY OR EXCISION OF 06/10/2017 3:09 PM BACK MELANOMA LYMPH NODE(S), OPEN, EDT DEEP AXILLARY NODE(S) (WRVU 6.43) EXC MALIGNANT LESION, 06/10/2017 3:09 PM BACK MELANOMA MINGO 3.1 TO 4.0CM, TRUNK EDT (WRVU 3.17) documented in this encounter Results Specimen to Pathology (surgical or derm) (06/10/2017 5:40 PM EDT) Specimen Anatomical Collection Method Collection Time Receive d Time (Source) Location / / Volume Laterality AP Specimen 06/10/2017 5:40 PM 7 5:40 EDT PM EDT Narrative [facility] - 06/10/2017 5:40 PM EDT Specimen requisition ordered. ??Separate Pathology report to follow Syeda Kaminski MD PATHOLOGY/CYTOLOGY ORDERABLE S Performing Organization Address City/[facility]/ZIP [facility] [place] [address] Specimen to Pathology (surgical or derm) (06/10/2017 5:19 PM EDT) Specimen Anatomical Collection Method Collection Time Receive d Time (Source) Location / / Volume Laterality AP Specimen 06/10/2017 5:19 PM 7 5:19 EDT PM EDT Narrative [facility] - 06/10/2017 5:19 PM EDT Specimen requisition ordered. ??Separate Pathology report to follow Syeda Kaminski MD PATHOLOGY/CYTOLOGY ORDERABLE S Performing Organization Address City/[facility]/ZIP [place] [address] Specimen to Pathology (surgical or derm) (06/10/2017 5:17 PM EDT) Specimen Anatomical Collection Method Collection Time Receive d Time (Source) Location / / Volume Laterality AP Specimen 06/10/2017 5:17 PM 7 5:17 EDT PM EDT Narrative [facility] - 06/10/2017 5:17 PM EDT Specimen requisition ordered. ??Separate Pathology report to follow Syeda Kaminski MD PATHOLOGY/CYTOLOGY ORDERABLE S Performing Organization Address City/State/ZIP [facility] [place] [address] Specimen to Pathology (surgical or derm) (06/10/2017 4:16 PM EDT) Specimen Anatomical Collection Method Collection Time Receive d Time (Source) Location / / Volume Laterality AP Specimen 06/10/2017 4:16 PM 7 4:16 EDT PM EDT Narrative [facility] - 06/10/2017 4:16 PM EDT Specimen requisition ordered. ??Separate Pathology report to follow Syeda Kaminski MD PATHOLOGY/CYTOLOGY ORDERABLE S Performing Organization Address City/State/ZIP [place] [address] Surgical Pathology Report (06/10/2017 4:15 PM EDT) Component Value Ref Test Analysis Performed At [facility] gist Range Method Time Signature Surgical [id number] ? Location: SD; SD41; A [facility] Report The signing pathologist has (i) examined the relevant preparation(s) for the [facility] specimen(s) and (ii) rendered or confirmed the diagnosis(es) . H[facility]PITAL LAB[facility]ORY . ? Addendum ADDENDUM DISCUSSION The melanoma gene panel has been ordered on the prior sample ([id number]). Electronically signed by: ??Amador Grant MD Verified: ??06/22/2017 ?Dermatopathologist ?Surgic al Pathology DIAGNOSIS A. Left mid back melanoma, excision: - Negative for residual melanoma - Dermal scar and procedure site changes B. Left axillary sentinel node #1: - Rare enlarged MelanA/KUW12-oemlczsd intraparenchymal radha ls suspicious for micrometastatic melanoma (see discussion) C. Left axillary sentinel node #2: - One lymph node negative for melanoma (0/1) D. Left axillary sentinel node #3: - One lymph node negative for melanoma (0/1) Electronically signed by: ??Amador Grant MD Verified: ??06/21/2017 ?Dermatopathologist DISCUSSION B. Consensus diagnosis was established among dennys matopathologists. While there are only a few intraparench ymal MelanA-positive cells identified by examination of several step-leveled sections and no atypical cells are identified on routine stained sections, t adalbertoe rare cells are abnormally large and show HMB45 coexpression. Our consensus impression is that these sparse cells are suspicious for micrometastases. ADDITIONAL STUDIES B/C1/C2/D: MelanA staining a nd step-leveled sections are performed on each block to assist in the evaluation of metastases. B: HMB45 staining is perform ed to assist in the evaluation of metastases. MelanA staining is repeated on multiple levels. CLINICAL INFORMATION Specimen Submitted: A - Left mid back melanoma B - Left axillary sentinel node #1 C - Left axillary sentinel node #2 D - Left axillary sentinel node #3 Clinical History: Back melanoma Clinical Diagnosis: Same . SPECIMEN PROCESSING A - ??Labeled/Fixative: Left midback paul anoma next item slight formalin fresh, formalin. Quantity/Size: ?Single, 7.0 x 2.5 x 2.5 cm. Tissue Description: The bailey pse of wrinkled, pink-addison skin with a central 2.0 x 0.1 cm umbilicated well-healed linear incision. Orientation: A short suture moran the superior edge margin and a long suture moran the lateral tip. Inking: The 3-6-9 o 'clock m argin is marked black. The 9-12-3 o ?? 'clock margin is marked blue. Sectioning: ??The specimen is serially sectioned from 12 to 6 o ?'clock. Sections/Processing: (1) 3 o ??'clock tip; (2) 9 o 'clock tip; (3) a outside sales representative insurance section between the scar an d 3 o ??'clock tip; (4-5) outside sales representative insurance section between the scar and 9 o 'clock tip ; (6-25) entire scar including nearest deep and lateral margins. (R25) B - ??Labeled/Fixative: Left axillary sentinel node #1, freelias h. Quantity/Size: Single, 1.2 x 1.0 x 0.7 cm. Tissue Description: Soft, focally blue stained lymph node and attached fat. Sections/Processing: The lymph node is serially sectioned and submitted. (R1) C - ??Labeled/Fixative: Left axillary sentinel node #2, fres h. Quantity/Size: Single, 5.0 x 4.5 x 1.8 cm. Tissue Description: Aggregat e of addison yellow lobular fatty tissue within which two, pink-addison lymph nodes are identified averaging 0.7 cm. Sections/Processing: Each node is trisected and separately s ubmitted. (R2) D - ??Labeled/Fixative: Left axillary sentinel node #3, fres h. Quantity/Size: Single, 0.9 x 0.6 x 0.5 cm. Tissue Description: Soft, pi nk-addison focally blue stained lymph node and attached fat. Sections/Processing: The lymph node is quadrisec kirill and submitted. (R1) ??ejr Specimen (Source) Anatomical Collection Method Collection Time Re ceived Time Location / / Volume Laterality 06/10/2017 4:15 PM EDT Syeda Kaminski MD PATHOLOGY/CYTOLOGY ORDERABLE S Performing Organization Address City/State/[facility] [place] [address] documented in this encounter Visit Diagnoses Not on filedocumented in this encounter Administered Medications Inactive Administered Medications - up to 3 most recent administrations Medication Order MAR Action Action Date Dose Rate Site acetaminophen (TYLENOL) tablet Given 06/10/2017 1:28 PM EDT 1,00 0 mg 1,000 mg 1,000 mg, Oral, ONCE, 1 dose, On Lucy 06/10/17 at 1345, Administer with SIP of H2O only., Day of Surgery (Day of Procedure), Routine BUpivacaine (PF) (MARCAINE) Given 06/10/2017 5:02 PM EDT 11 mLs 19- Surgical Site 0.5 % (5 mg/mL) injection ONCE PRN, Starting on Lucy 06/10/17 at 1702, Until Lucy 06/10/17 at 2256, Intra-Operative (Intra-Procedure), Routine HYDROmorphone (DILAUDID) syringe 0.2-0.4 mg Given 06/10/2017 6:33 PM EDT 0.4 mg 0.2-0.4 mg, Intravenous, EVERY 5 MIN PRN, Pain, Starting on Lucy 06/10/17 at 1816, Until Lucy 06/10/17 at 1910, For moderate pain (4-6) give: 0.2 mg every 5 minute prn For severe pain (7-10) give: 0.4 mg every 5 minutes prn Maximum dose: 4 mg per hour Hold for respiratory rate less than 10 per minute., PACU Recovery Given 06/10/2017 6:22 PM EDT 0.4 mg lidocaine (XYLOCAINE) 10 mg/mL Given 06/10/2017 5:03 PM EDT 11 m Ls 19- Surgical Site (1 %) injection ONCE PRN, Starting on Lucy 06/10/17 at 1703, Until Lucy 06/10/17 at 2256, Intra-Operative (Intra-Procedure), Routine methylene blue 5 mg/mL (0.5 %) Given 06/10/2017 6:08 PM EDT 4 mg 19- Surgical Site injection ONCE PRN, Starting on Lucy 06/10/17 at 1808, Until Lucy 06/10/17 at 2256, Intra-Operative (Intra-Procedure), Routine ondansetron (ZOFRAN-ODT) 8 mg oral Given 06/10/2017 7:45 PM EDT 8 mg disintegrating tablet 1 dose, Starting on Lucy 06/10/17 at 1942, Until Lucy 06/10/17 at 1945, EDEN TRIMBLE: cabinet override prochlorperazine (COMPAZINE) 10 mg/2 mL (5 mg/mL) injection 1 dose, Starting on Lucy 06/10/17 at 2035, Until Lucy 06/10/17 at 2044, ALEXSANDRA CARRERA: cabinet override prochlorperazine (COMPAZINE) injection 5 mg Given 06/10/2017 8:45 PM EDT 5 mg 5 mg, Intravenous, EVERY 30 MIN PRN, 2 doses, Starting on Lucy 06/10/17 at 203, Until Lucy 06/10/17 at 225, Nausea, May repeat 5 mg once in 30 minutes. If multiple antiemetics ordered, use ondansetron first and if ineffective use prochlorperazine second and if ineffective use promethazine, PACU Recovery, Routine promethazine (PHENERGAN) 25 mg/mL inject ion 1 dose, Starting on Lucy 06/10/17 at 2014, Until Lucy 06/10/17 at 2020, ALEXSANDRA CARRERA: cabinet override promethazine (PHENERGAN) injection 6.25 mg Given 06/10/2017 8:21 PM EDT 6.25 mg 6.25 mg, Intravenous, EVERY 30 MIN PRN, 2 doses, Starting on Lucy 06/10/17 at 1816, Until Lucy 06/10/17 at 1910, Nausea, VESICANT - Dilute with a minimum of 10 mL saline. LARGE VEIN only. Inject over 10 minutes into the farthest port of a running IV infusion. Remain with the patient and STOP infusion immediately if patient reports burning. Avoid extravasation. If multiple antiemetics are ordered, use ondansetron first and if ineffective use prochlorperazine second and if ineffective use promethazine., PACU Recovery, Routine documented in this encounter Active and Recently Administered Medications Times are shown in EDT. Scheduled Medication Order 06/08/2017 06/09/2017 06/10/2017 acetaminophen (TYLENOL) tablet 1,000 mg (COMPLETED) 1328 (Given - Provider: Donita Ngo, EVA) 1,000 mg, Oral, ONCE, 1 dose, Lucy 06/10/17 at 1345, Administer with SIP of H2O only., Day of Surgery (Day of Procedure), Routine ceFAZolin (ANCEF) 2g in dextrose 5% 100 mL (COMPLETED) 1529 (Given - Provider: Luciana Payton MD) 2 g, Intravenous, EVERY 3 HOURS, 1 dose, First dose on Lucy 06/10/17 at 1345, Administer over 30 Minutes, Intra-Operative (Intra-Procedure), Indication for (Active or Suspected): Prophylaxis Continuous Medication Order 06/08/2017 06/09/2017 06/10/2017 lactated Ringers infusion 1,000 mL (CANCELED) 1456 (New Bag - Provider: Luciana Payton MD)1546 (Anesthesia Volume Adjustment - Provider: Luciana Payton MD)1800 (Anesthesia Volume Adjustment - Provider: Mike Zamorano CRNA) 1,000 mL, at 100 mL/hr, Intravenous, CON TINUOUS, Starting Lucy 06/10/17 at 1345, Until Lucy 06/10/17 at 1910, Day of Surgery (Day of Procedure) PRN Medication Order 06/08/2017 06/09/2017 06/10/2017 BUpivacaine (PF) (MARCAINE) 0.5 % (5 mg/mL) injection (CANCELED) 170 (Given - Provider: Syeda Kaminski MD - Comment: mixed 1:1 with 1% lidocaine.) ONCE PRN, Starting Lucy 917 at 1702, U ntil Lucy 17 at 2256, Intra-Operative (Intra-Procedure), Routine HYDROmorphone (DILAUDID) syringe 0.2-0.4 mg (CANCELED) 182 (Given - Provider: Eden Trimble, EVA)183 (Given - Provider: Eden Trimble RN) 0.2-0.4 mg, Intravenous, EVERY 5 MIN PRN , Starting Lucy 06/10/17 at 1816, Until Lucy 06/10/17 at 1910, Pain, For moderate pain (4-6) give: 0.2 mg every 5 minute prn For severe pain (7-10) give: 0.4 mg every 5 minutes prn Maximum dose: 4 mg per hour Hold for respiratory rate less than 10 per minute., PACU Recovery, Routine lidocaine (XYLOCAINE) 10 mg/mL (1 %) injection (CANCELED) 170 (Given - Provider: Syeda Kaminski MD - Comment: mixed 1:1 with 0.5% bupivacaine.) ONCE PRN, Starting Lucy 917 at 1703, U ntil Lucy 17 at 2256, Intra-Operative (Intra-Procedure), Routine methylene blue 5 mg/mL (0.5 %) injection (CANCELED) 1807 (Given - Provider: Syeda Kaminski MD) ONCE PRN, Starting Lucy 917 at 1808, U ntil Lucy 9//17 at 2256, Intra-Operative (Intra-Procedure), Routine prochlorperazine (COMPAZINE) injection 5 mg 2044 (Given - Provider: Alexsandra Carrera RN) 5 mg, Intravenous, EVERY 30 MIN PRN, 2 d oses, Starting Lucy 917 at 2038, Until Lucy 06/10/17 at 2256, Nausea, May repeat 5 mg once in 30 minutes. If multiple antiemetics ordered, use ondansetron first and if ineffective use prochlorperazine second and if ineffective use promethazine, PACU Recovery, Routine promethazine (PHENERGAN) injection 6.25 mg (CANCELED) 2020 (Given - Provider: Alexsandra Carrera, EVA) 6.25 mg, Intravenous, EVERY 30 MIN PRN, 2 doses, Starting Lucy 06/10/17 at 1816, Until Lucy 06/10/17 at 1910, Nausea, VESICANT - Dilute with a minimum of 10 mL saline. LARGE VEIN only. Inject over 10 minutes into the farthest port of a running IV i nfusion. Remain with the patient and STOP infusion immediately if patient reports burning. Avoid extravasation. If multiple antiemetics are ordered, use ondans etron first and if ineffective use proch lorperazine second and if ineffective use promethazine., PACU Recovery, Routine No Frequency Medication Order 06/08/2017 06/09/2017 06/10/2017 acetaminophen (TYLENOL) 500 mg tablet 184 (Due) 1 dose, Starting Lucy 06/10/17 at 1835, Unt il 06/11/17 at 0644, EDEN TRIMBLE: cabinet override ondansetron (ZOFRAN-ODT) 8 mg oral disintegrating tablet (COMPLE KIRILL) 1944 (Given - Provider: Eden Trimble, EVA) 1 dose, Starting Lucy 06/10/17 at 1942, Unt il Lucy 06/10/17 at 1945, EDEN TRIMBLE: cabinet override documented in this encounter Care Teams Medicare Sales Representative Relationship Specialty Start Date End Date Loren Cortez APRN PCP - General Family Medicine 05/06/17 [address] [place] [address] documented as of this encounter
--- OUTSIDE RECORDS SUMMARY | 2022-05-08 01:05 | XMS_ITS | Encounter Summary ---
:1960 Author Organization [facility] [place] [address] Care Team Providers Name Role Phone Loren Cortez APRN Primary Care Provider [phone] Encounter Details Date Type Department Care Team Description 01/12/2018 Hospital Encounter Ultrasound at [facility] Maria Abbott Metastatic melanoma [facility] MD [place] [address] GENERAL SURGERY [phone] [place], [place] [address] Social History Tobacco Use Types [...] Diagnosis Comme nts US EXTREMITY NON Routine 01/12/2018 10:27 AM Metastatic melano ma Results for this VASCULAR LIMITED EDT to lymph node procedure are in ANATOMIC SPECIFIC the result s LEFT section. documented in this encounter Results US Extremity Non Vascular Limited Anatomic Specific Left (01/12/2018 10:27 AM EDT) Anatomical Region Laterality Modality Ultrasound Specimen (Source) Anatomical Collection Method Collection Time Re ceived Time Location / / Volume Laterality 01/12/2018 10:28 AM EDT Impressions 01/12/2018 10:42 AM EDT ??Three morphologically benign left axi llary lymph nodes. ?Kell finch MD Electronically Signed Final Report ?? 10:42 am Narrative 01/12/2018 10:42 AM EDT Ultrasound Axilla Report - ?( Signed Final 01/12/2018 10:42 am) LEFT PATIENT INFO: ID #: ? [id number] ?: ??[birth year] (57 yrs) Name: ? ANNETTE OSORIO ?Visit Date: 01/12/2018 10:28 am PERFORMED BY: Performed By: ? Hector Molina RDMS Attending: ?Torey REDDY, Kell James Referred By: ?MARIA ABBOTT Location: ? [place] SERVICE(S) PROVIDED: ??UEXTLMTL - Extremity Limited Non Vasc ular - Left ?[id number] ??- [id number] INDICATIONS: ??metastatic melanoma in left axillary LN. ??under surveillance as MSLT-II protoco l. ??MELANOMA PROTOCOL axillary lymph ??node exam --------- FINDINGS: --------- Title: ? Ultrasound Axilla Repor t - LEFT Findings: ?Three normal appearing l ymph nodes seen largest ?measuring 1.8 x 0.5 x 0.8 cm. All seen with fatty ?hilums. Procedure Note Kell Lema MD - 01/12/2018 Ultrasound Axilla Report - (Signed Tash dukes 01/12/2018 10:42 am) LEFT PATIENT INFO: ID #: [id number] : 60 (57 y rs) Name: ANNETTE OSORIO Visit Date: 01/12 10:28 am PERFORMED BY: Performed By: Hector Molina RDMS Attending: Kell Lema MD Referred By: MARIA ABBOTT Location: [place] SERVICE(S) PROVIDED: UEXTLMTL - Extremity Limited Non Vascul ar - Left [id number] - [id number] INDICATIONS: metastatic melanoma in left axillary LN . under surveillance as MSLT-II protocol. MELANOMA PROTOCOL axillary lymph node exam --------- FINDINGS: --------- Title: Ultrasound Axilla Report - LEFT Findings: Three normal appearing lymph nodes seen largest measuring 1.8 x 0.5 x 0.8 cm. All seen with fatty hilums. IMPRESSION Three morphologically benign left axill brittany lymph nodes. 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
--- OUTSIDE RECORDS SUMMARY | 2022-05-08 01:05 | XMS_ITS | Encounter Summary ---
:1960 Author Organization [facility] Address [address] [place] [address] Care Team Providers Name Role Phone Loren Cortez APRN Primary Care Provider [phone] Reason for Visit Reason Comments Skin Check Melanoma skin examination Encounter Details Date Type Department Care Team Description 08/17/2017 Office Visit Dermatology at [facility] Hi story of melanoma; David Coleman MD Seborrheic keratosis; [address] [facility] Dermatofibroma; [place] [address] Benign nevus of skin; [phone] [facility] [address] [place], [place] [address] Social History Tobacco Use Types Packs/Day Years Used Date Never Smoker Smokeless Tobacco: Never Used Alcohol Use Standard Drinks/Week Comments Yes 1 (1 standard drink = 0.6 oz pure alcoho l) Sex Assigned at Date Recorded Not on file documented as of this encounter Progress Notes Carline Franco MD - 08/17/2017 4:30 PM EST DERMATOLOGY ESTABLISHED PATIENT CLINIC NOTE Date of service: 08/17/2017 Rosa Shah : 1960 Provider: Carline Franco MD Chief Complaint Patient presents with ??? Skin Check Melanoma skin examination 05/06/2017 ??Skin, left lower back, excision: - [...] 1.0 mm from the nearest lateral margin. LYNDON Shah is a 57 y.o. female, established patient last seen by me on 05/06/2017. Here today fora complete skin cancer examination. She does not have any areas of concern today. MEDS: No current outpatient prescriptions on file. No current facility-administered medications for this visit. ADR: No Known Allergies ROS General: feeling well Skin: denies other skin complaints EXAM General: NAD, pleasant, cooperative Skin: The entire skin surface was examined, including the face, neck, chest, abdomen, back. The arms and legs, including the palms, soles, fingers and between the toes. No lymphadenopathy, including the supraclavicular, cervical, axillary, and inguinal areas. Melanoma excision site scar was examined and palpated. There was no increase in pigmentation or induration at this site. Significant skin findings: A. Well-healed hypopigmented scars at site above, no signs of recurrence B. Multiple 0.2-0.4cm bright red, well-demarcated papules C. Lateral cheeks, upper back. 0.3-0.6cm light-brown evenly pigmented, well- demarcated macule D. Scattered 0.3-0.5cm, medium-brown, evenly-pigmented macules and papules. Including an 0.8 cm medium-brown macule on the central back All with regular pigment pattern on dermoscopy. No pigmented lesions suspicious for melanoma. E. firm papule, centrally raised and sclerotic, with peripheral hyperpigmentation and dimpling with lateral pressure on the right knee and left posterior calf F. 0.4cm brown papule with waxy, stuck-on appearance on the left [place] ASSESSMENT/PLAN: A. History of melanoma, no clinical evidence recurrence Discussed importance of sun protection, sun avoidance strategies, protective clothing, and sunscreen. B. Davies Angiomas - Discussed benign nature of lesion and provided reassurance. No treatment necessary at this time. ?? C.Solar Lentigines Sun avoidance, protective clothing and the use of SPF 30 sunscreen is advised. Observe closely for skin changes and call if such occurs. D. Benign Nevi-reassured non look worrisome today E. Dermatofibroma F. Seborrheic Keratosis Follow up: 3 months, sooner if needed. Instructed to call with questions or concerns. I am documenting this encounter acting as the scribe for and in the presence of Dr. Franco: NOLBERTO DESOUZA LPN I performed the above scribed service and agree with the accuracy of the documentation in this encounter. Carline Franco MD Automatic Vulcanizing Operator of Dermatology, Department of Mender Knit GoodsAutomatic Vulcanizing Operatordirector diversity (Dermatopathology) [facility] documented in this encounter Plan of Treatment Not on filedocumented as of this encounter Visit Diagnoses Diagnosis History of melanoma Personal history of malignant melanoma o f skin Seborrheic keratosis Other seborrheic keratosis Dermatofibroma Benign neoplasm of skin, site unspecifie d Benign nevus of skin Benign neoplasm of skin, site unspecifie d Davies angioma Nevus, non-neoplastic documented in this encounter Care Teams Manager Travel Relationship Specialty Start Date End Date Loren Cortez APRN PCP - General Family Medicine 05/06/17 [address] [place], [place] [address] documented as of this encounter
--- OUTSIDE RECORDS SUMMARY | 2022-05-08 01:05 | XMS_ITS | Encounter Summary ---
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 Syeda Nair MD [facility] Rad Nuclear Med Procedures PET CT Standard Plus Extremities & Head [facility] [place] [address] [place] [address] Fax: Referral ID Status Reason Start Date Expiration Visits Visits Date Requested Authorized [id number] Specialty 08/11/2017 09/10/2017 2 2 Service Requested Encounter Details Date Type Department Care Team Description 08/17/2017 Hospital Encounter Nuclear Medicine at [facility] Mary Hitchcock MD [facility] [place] [address] [place] [address] [phone] (Wo rk) Social History Tobacco Use Types [...] Comments Diagnosis NM PET CT STANDARD Routine 08/17/2017 2:52 PM Metastatic melan alonso Results for this PLUS EXTREMITIES AND EST to lymph node proced ure are in HEAD the results section. documented in this encounter Results PET CT Standard Plus Extremities & Head (08/17/2017 2:52 PM EST) Anatomical Region Laterality Modality Nuclear Medicine Specimen (Source) Anatomical Location Collection Method / Collectio n Time Received Time / Laterality Volume Impressions 08/17/2017 4:13 PM EST 1. ??Mild postsurgical inflammatory changes in the left axilla and left lower back. 2. ??No distant metastases. Thank you for referring this patient [facility] PET [facility]. Preliminary report signed by: Ta Garcia at 08/17/2017 3:57 PM I have personally reviewed the image(s) and the residents interpretation and agree with the findings, Flakito Jarrell at 08/17/2017 4:13 PM Narrative 08/17/2017 4:13 PM EST EXAMINATION: PET CT STANDARD PLUS EXTREMITIES AND HEAD CLINICAL HISTORY: stage III melanoma. Ru le out metastasis. TECHNIQUE: Procedure: Following IV injec tion of 52-khxczf-1-deoxyglucose (FDG) a standard uptake of approximately 60 janet des, a noncontrast CT scan followed by a PET scan were acquired from the top of h ead to bottom of feet. The noncontrast CT was used for anatomic localization an d photon attenuation correction of the PET scan. Blood glucose level: 81 (mg/dL) FDG dose: 15.8 mCi COMPARISON: Lymphoscintigraphy and chest SPECT-CT Se ptember 2016 and MR brain August 17, 2017 FINDINGS: HEAD/NECK: Normal activity in all soft tissue regio ns. CHEST: Mildly FDG avid post surgical changes in the left axilla from prior tyron dissection. ABDOMEN/PELVIS: Mildly FDG avid post surgical changes in the left para midline lower back (axial image 156). No CT visualized soft tissue nodularity. SKELETON/EXTREMITIES: Normal activity in all regions of the ax ial and appendicular skeleton. Focus of FDG avidity in the lateral righ t midfoot (axial image 265) consistent with a muscle strain in the foot extenso r muscles. Procedure Note Flakito Jarerll MD - 08/17/2017Formatti ng of this note might be different from the original. EXAMINATION: PET CT STANDARD PLUS EXTREM ITIES AND HEAD CLINICAL HISTORY: stage III melanoma. Ru le out metastasis. TECHNIQUE: Procedure: Following IV injec tion of 11-fevtvr-4-deoxyglucose (FDG) a standard uptake of approximately 60 janet des, a noncontrast CT scan followed by a PET scan were acquired from the top of h ead to bottom of feet. The noncontrast CT was used for anatomic localization an d photon attenuation correction of the PET scan. Blood glucose level: 81 (mg/dL) FDG dose: 15.8 mCi COMPARISON: Lymphoscintigraphy and chest SPECT-CT Se pt2016 and MR brain August 17, 2017 FINDINGS: HEAD/NECK: Normal activity in all soft tissue regio ns. CHEST: Mildly FDG avid post surgical changes in the left axilla from prior tyron dissection. ABDOMEN/PELVIS: Mildly FDG avid post surgical changes in the left para midline lower back (axial image 156). No CT visualized soft tissue nodularity. SKELETON/EXTREMITIES: Normal activity in all regions of the ax ial and appendicular skeleton. Focus of FDG avidity in the lateral righ t midfoot (axial image 265) consistent with a muscle strain in the foot extenso r muscles. IMPRESSION 1. Mild postsurgical inflammatory change s in the left axilla and left lower back. 2. No distant metastases. Thank you for referring this patient [facility] PET Center. Preliminary report signed by: Ta Garcia at 08/17/2017 3:57 PM I have personally reviewed the image(s) and the residents interpretation and agree with the findings, Flakito Jarrell at 08/17/2017 4:13 PM Syeda Kaminski MD IMG PET ORDERABLES documented in this encounter Visit Diagnoses Not on filedocumented in this encounter Care Teams Cargo Checker Relationship Specialty Start Date End Date Loren Cortez APRN PCP - General Family Medicine 05/06/17 [address] [place] [address] documented as of this encounter
--- OUTSIDE RECORDS SUMMARY | 2022-05-08 01:05 | XMS_ITS | Encounter Summary ---
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, unspecified lymph node region Juan David Coleman MD [facility] Rad Ct Scan Procedures CT Chest Abdomen Pelvis w Contrast (Generic) [facility] Nitesh HEMATOLOGY/[place] [address] [place] [address] Referral ID Status Reason Start Date Expiration Date Visits V isits Requested Authorized [id number] Closed Specialty 02/09/2018 03/26/2018 1 1 Service Requested Encounter Details Date Type Department Care Team Description 08/17/2017 Office Visit Hematology and Juan David Coleman Malignant melanoma of torso excluding breast (Primary Dx); Oncology at [facility] Malignant neoplasm metastatic to lymph n odes, unspecified lymph node region [facility] [address] HEMATOLOGY/ONCOLOG [id number] Y DEPT [phone] [place], [place] [address] Social History Tobacco Use Types Packs/Day Years Used Date Never Smoker Smokeless Tobacco: Never Used Alcohol Use Standard Drinks/Week Comments Yes 1 (1 standard drink = 0.6 oz pure alcoho l) Sex Assigned at Date Recorded Not on file documented as of this encounter Last Filed Vital Signs Vital Sign Reading Time Taken Comments Blood Pressure 137/72 08/17/2017 3:25 PM EST Pulse 64 08/17/2017 3:25 PM EST Temperature 36.5 ??C (97.7 ??F) 08/17/2017 3:25 PM EST Respiratory Rate 18 08/17/2017 3:25 PM EST Oxygen Saturation 100% 08/17/2017 3:25 PM EST Inhaled Oxygen Concentration - - Weight 89.9 kg (198 lb 3.2 oz) 08/17/2017 3:25 PM EST Height 166.8 cm (5' 5.67) 08/17/2017 3:25 PM EST Body Mass Index 32.31 08/17/2017 3:25 PM EST documented in this encounter Progress Notes Juan David Coleman MD - 08/17/2017 4:00 PM EST Images from the original note were not included. [facility] NOTE REFERING PHYSICIAN: Dr. 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 Shah is 57 years old lady with the above medical history referred to melanoma clinic on 07/09/2017 to discuss follow-up options for her stage IIIa left lower back melanoma. INTERVAL HISTORY: The patient is here to review PET CT and brain MRI result of pain for her stage IIIa melanoma. The patient continues to recuperate well from surgery. No limitation in her daily activity Well-healed surgical wound REVIEW OF SYSTEMS: Constitutional: No weight loss, no fever, no fatigue, No dizziness. No headache. Eyes: Negative, no visual change ENT: No hearing change Cardiovascular: Negative Respiratory: Negative Gastrointestinal: Negative, Genitourinary: Negative Musculoskeletal: No new joint pain Skin: Negative Neurological: Negative, no focal weakness Psychiatric: stable mood PAST MEDICAL HISTORY: Past Medical History: Diagnosis Date ??? Melanoma 05/06/2017 left lower back ??? Melanoma of back 05/06/2017 Past Surgical History: Procedure Laterality Date ??? LEG SURGERY ??? ORTHOPEDIC SURGERY Age 3 - legs straightened - bilaterally ??? PRO ADJ TISS TRANSFER/REARRANGEMENT ANY AREA 30.1-60 SQCM Left 06/10/2017 ADJACENT TISSUE TRANSFER OR REARRANGEMENT; 30.1 TO 60.0 SQ CM, BACK (WRVU 12.65) performed by Syeda Nair MD at [facility] [place] MAIN OR ??? PRO BX/REMV, LYMPH NODE, DEEP AXILL Left 06/10/2017 BIOPSY OR EXCISION OF LYMPH NODE(S), OPEN, DEEP AXILLARY NODE(S) (WRVU 6.43) performed by Syeda Nair MD at [facility] [place] MAIN OR ??? PRO EXC SKIN MALIG 3.1-4CM TRUNK, ARM, LEG N/A 06/10/2017 EXC MALIGNANT LESION, MINGO 3.1 TO 4.0CM, TRUNK (WRVU 3.17) performed by Syeda Nair MD at [facility] [place] MAIN OR ??? PRO INTRAOP SENTINEL LYMPH ID W/DYE INJECTION N/A 06/10/2017 INTRAOPERATIVE ID (MAPPING) SENTINEL LYMPH NODE,INCLUDES INJECTION (WRVU 2.5) performed by Syeda Nair MD at [facility] [place] MAIN OR ??? TONSILLECTOMY MEDS: None ALLERGY: No Known Allergies FAMILY HX: No melanoma or any type of cancer No family history on file. SOCIAL HX: ETOH: Social Smoking: Never Social History Social History ??? Marital status: Spouse name: N/A ??? Number of children: 1 ??? 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 Smoking status: Never Smoker ??? Smokeless tobacco: Never Used ??? Alcohol use 0.6 oz/week 1 Glasses of wine per week ??? Drug use: Not on file ??? Sexual activity: Yes Other Topics Concern ??? Not on file Social History Narrative 1 daughter PHYSICAL EXAM: PS=0 General: not in acute distress. in good mood and spirits BP 137/72 (Patient Position: Sitting) Pulse 64 Temp 36.5 ??C (97.7 ??F) (Oral) Resp 18 Ht 166.8 cm (5' 5.67) Wt 89.9 kg (198 lb 3.2 oz) SpO2 100% BMI 32.31 kg/m2 Eyes: Not icteric, not injected Oral: clear. Neck: Supple. No lymphadenopathy. Lungs: Bilaterally clear to auscultation, No wheezing, No crackles Heart: Regular rate and rhythm. Abdomen: Soft, no tenderness, no mass, normal active bowel sounds. Extremities: No edema. Skin: No rash Neuro: No focal weakness LABS: No labs today On 07/09/2017 Unremarkable CBCD and CMP LDH 194 IMAGING STUDIES: PET/CT scan on 08/17/2017 1. Mild postsurgical inflammatory changes in the left axilla and left lower back. 2. No distant metastases. Brain MRI on 08/17/2017 No sign of metastasis or other acute abnormality. ASSESSMENT AND PLAN: At least stage IIIa left lower back melanoma with IHC positive 1 out of 3 left axillary sentinel sentinel node BRAF mutation V600E positive The significance and natural course ofstage III melanoma were reviewed again. PET/CT scan and brain MRI results are encouraging. I reviewed images. Importance of dermatology follow-up was reviewed with her. She will see Dr. Nair in 3 month with ultrasound. I'll have her come back in [address] scan and me as long as she remains stable. Pt was instructed to call our clinic with any new symptom or any questions. Juan David Coleman MD documented in this encounter Plan of Treatment Not on filedocumented as of this encounter Results CT Chest Abdomen Pelvis w Contrast (Generic) (02/17/2018 10:32 AM EDT) Anatomical Region Laterality Modality Abdomen, Pelvis Computed Tomography Specimen (Source) Anatomical Location Collection Method / Collectio n Time Received Time / Laterality Volume Impressions 02/17/2018 11:26 AM EDT No local recurrence or metastasis. Preliminary report signed by: Ta Garcia at 02/17/2018 11:10 AM I have personally reviewed the image(s) and the residents interpretation and agree with the findings, Gio griffin at 02/17/2018 11:26 AM Narrative 02/17/2018 11:26 AM EDT EXAMINATION: CT CHEST ABDOMEN PELVIS W CONTRAST (GENERIC) CLINICAL HISTORY: Stage IIIa left lower back melanoma with left axillary lymph nodes resected in July 2017, last sca n on 08/17/2017 was negative for distant metastases. TECHNIQUE: CT of the chest, abdomen, and pelvis was performed following intravenous administration of 103 ml of Omnipaque 350. Oral contrast was administered. COMPARISON: PET/CT August 17, 2017 FINDINGS: Chest: Lungs and large airways: Central airways are clear. No pulmonary nodule. Pleura: No pleural fluid or nodularity. Heart/vasculature: Heart size is normal. No pericardial effusion. Normal caliber and contour of the thoracic aorta. Lymph nodes/Mediastinum/Regla: Small volu me of residual thymus. Multiple surgical clips in the left axilla from tyron diss ection. No new or enlarging lymph nodes. Abdomen/pelvis: Liver: Normal size and attenuation witho ut lesions. Bile ducts: Nondilated. Gallbladder: No calcified gallstones. No rmal caliber wall. Pancreas: Normal attenuation without angelica norah dilatation. Spleen: Normal. Adrenals: Normal. Kidneys: Symmetric size and enhancement. No urinary collecting system dilatation. Several small simple left pa rapelvic renal cysts. Vasculature: No aneurysm. Lymph Nodes: ??No enlarged lymph nodes. Bowel: Nondilated, no wall thickening. L arge fecal load throughout the colon. Terminal ileum and appendix are normal. Peritoneum and mesentery: No ascites, fr ee air, or loculated fluid collection. No mesenteric nodularity or inflammation . Abdominal wall: No nodularity along the left lower back surgical site. No soft tissue nodules. Urinary Bladder: Normal. Reproductive organs: Normal. Osseous structures: No suspicious lesion s. Procedure Note Gio Denton MD - 02/17/2018Form atting of this note might be different from the original. EXAMINATION: CT CHEST ABDOMEN PELVIS W CONTRAST (GENERIC) CLINICAL HISTORY: Stage IIIa left lower back melanoma with left axillary lymph nodes resected in July 2017, last sca n on 08/17/2017 was negative for distant metastases. TECHNIQUE: CT of the chest, abdomen, and pelvis was performed following intravenous administration of 103 ml of Omnipaque 350. Oral contrast was administered. COMPARISON: PET/CT August 17, 2017 FINDINGS: Chest: Lungs and large airways: Central airways are clear. No pulmonary nodule. Pleura: No pleural fluid or nodularity. Heart/vasculature: Heart size is normal. No pericardial effusion. Normal caliber and contour of the thoracic aorta. Lymph nodes/Mediastinum/Regla: Small volu me of residual thymus. Multiple surgical clips in the left axilla from tyron diss ection. No new or enlarging lymph nodes. Abdomen/pelvis: Liver: Normal size and attenuation witho ut lesions. Bile ducts: Nondilated. Gallbladder: No calcified gallstones. No rmal caliber wall. Pancreas: Normal attenuation without angelica norah dilatation. Spleen: Normal. Adrenals: Normal. Kidneys: Symmetric size and enhancement. No urinary collecting system dilatation. Several small simple left pa rapelvic renal cysts. Vasculature: No aneurysm. Lymph Nodes: No enlarged lymph nodes. Bowel: Nondilated, no wall thickening. L arge fecal load throughout the colon. Terminal ileum and appendix are normal. Peritoneum and mesentery: No ascites, fr ee air, or loculated fluid collection. No mesenteric nodularity or inflammation . Abdominal wall: No nodularity along the left lower back surgical site. No soft tissue nodules. Urinary Bladder: Normal. Reproductive organs: Normal. Osseous structures: No suspicious lesion s. IMPRESSION No local recurrence or metastasis. Preliminary report signed by: Ta Garcia at 02/17/2018 11:10 AM I have personally reviewed the image(s) and the residents interpretation and agree with the findings, Gio griffin at 02/17/2018 11:26 AM Juan David Coleman MD IMG CT ORDERABLES Lactate Dehydrogenase (02/17/2018 8:12 AM EDT) athologist Signature LDH 203 110 - 220 [facility] unit/L [facility] Specimen Anatomical Collection Method Collection Time Receive d Time (Source) Location / / Volume Laterality Blood specimen 02/17/2018 8:12 AM 018 8:22 (specimen) EDT AM EDT Resulting Agency Comment Spec In Lab Juan David Coleman MD CHEMISTRY ORDERABLES Performing Organization Address City/State/[place] [address] Comprehensive metabolic panel (non-fasting) (02/17/2018 8:12 AM EDT) athologist Signature Glucose Lvl 94 65 - 199 [facility] mg/dL [facility] Comment: Diabetes: >=200 mg/dL plus symp toms BUN 17 8 - 18 mg/dL [facility] Creatinine 0.86 0.70 - 1.20 mg/dL [facility] Sodium 142 135 - 145 mmol/L [facility] Potassium 4.3 3.5 - 5.0 mmol/L [facility] Comment: Please note: ??Patients with WBC >100,00 0 may have falsely elevated Potassium levels. ??For accurate Potassium quantif ication in these patients send serum separator tube (gold top) for subsequent determinations. ??Contact the Clinical Chemistry Laboratory if there are any qu estions. Chloride 103 98 - 107 mmol/L [facility] CO2 26 22 - 31 mmol/L [facility] Anion Gap 13 5 - 15 mmol/L [facility] Calcium 9.5 8.5 - 10.5 mg/dL [facility] Total Protein 7.1 6.1 - 8.0 gm/dL [facility] Albumin 4.7 3.2 - 5.2 gm/dL [facility] AST 18 0 - 30 unit/L [facility] ALT 18 0 - 30 unit/L [facility] Alk Phos 75 40 - 104 unit/L [facility] Total Bilirubin 0.4 0.2 - 1.3 mg/dL [facility] Estimated GFR >60 >=60 [facility] Comment: The reported eGFR should be multiplied b y 1.2 for patients. The MDRD is not an appropriate measure o f renal function for patients with body mass extremes or in patients with acute kidney failure. http://Ookbee/DHnkdep http://Ookbee/DHMCnkf Specimen Anatomical Collection Method Collection Time Receive d Time (Source) Location / / Volume Laterality Blood specimen 02/17/2018 8:12 AM 018 8:22 (specimen) EDT AM EDT Resulting Agency Comment Spec In Lab Juan David Coleman MD CHEMISTRY ORDERABLES Performing Organization Address City/State/[place] [address] documented in this encounter Visit Diagnoses Diagnosis Malignant melanoma of torso excluding br east - Primary Malignant neoplasm metastatic to lymph n odes, unspecified lymph node region Malignant melanoma of torso excluding br east Malignant neoplasm metastatic to lymph n odes, unspecified lymph node region documented in this encounter Care Teams Asian Studies Professor Relationship Specialty Start Date End Date Loren Cortez APRN PCP - General Family Medicine 05/06/17 [address] [place] [address] documented as of this encounter
--- OUTSIDE RECORDS SUMMARY | 2022-05-08 01:05 | XMS_ITS | Encounter Summary ---
:1960 Author Organization [facility] [place] [address] Care Team Providers Name Role Phone DelbertLoren bob MARINE Primary Care Provider [phone] Reason for Referral Diagnostic Test (Routine) - Specialty Diagnoses / Procedures Referred By Contact Refer red To Contact Radiology Diagnoses 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 Syeda Nair MD [facility] Rad Nuclear Med Procedures PET CT Standard Plus Extremities & Head [address] [address] Fax: Referral ID Status Reason Start Date Expiration Visits Visits Date Requested Authorized [id number] Specialty 08/11/2017 09/10/2017 2 2 Service Requested Reason for Visit Diagnostic Test (Routine) - Specialty Diagnoses / Procedures Referred By Contact Refer red To Contact Radiology Diagnoses 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 Syeda Nair MD [facility] Rad Nuclear Med Procedures PET CT Standard Plus Extremities & [place] [address] [place] [address] Fax: Referral ID Status Reason Start Date Expiration Visits Visits Date Requested Authorized [id number] Specialty 08/11/2017 09/10/2017 2 2 Service Requested Encounter Details Date Type Department Care Team Description 08/17/2017 Hospital Encounter Nuclear Medicine at [facility] Metastatic melanoma Marylin Kaminski MD to lymph node [facility] [address] [place], [place] GENERAL SURGERY [address] [facility] [place] [place] [address] [phone] Social History Tobacco Use Types Packs/Day Years [...] ure are in HEAD the results section. POCT GLUCOSE Routine 08/17/2017 1:04 PM Results f or this EST procedure are i n the results section. [...] metastases. Thank you for referring this patient [facility] PET Center. Preliminary report signed by: Ta Garcia at 08/17/2017 3:57 PM I have personally reviewed the image(s) and the residents interpretation and agree with the findings, Flakito Jarrell at 08/17/2017 4:13 PM Narrative 08/17/2017 4:13 PM EST EXAMINATION: PET CT STANDARD PLUS EXTREMITIES AND HEAD CLINICAL HISTORY: stage III melanoma. Ru le out metastasis. TECHNIQUE: Procedure: Following IV injec tion of 94-hkqrcq-5-deoxyglucose (FDG) a standard uptake of approximately 60 [...] foot extenso r muscles. Procedure Note Flakito Jarrell MD - 08/17/2017Formatti ng of this note might be different from the original. EXAMINATION: PET CT STANDARD PLUS EXTREM ITIES AND HEAD CLINICAL HISTORY: stage III melanoma. Ru le out metastasis. TECHNIQUE: Procedure: Following IV injec tion of 74-cyovnq-9-deoxyglucose (FDG) a standard uptake of approximately 60 [...] metastases. Thank you for referring this patient [facility] PET Center. Preliminary report signed by: Ta Garcia at 08/17/2017 3:57 PM I have personally reviewed the image(s) and the residents interpretation and agree with the findings, Flakito Jarrell at 08/17/2017 4:13 PM Syeda Kaminski MD IMG PET ORDERABLES POCT Glucose (08/17/2017 1:04 PM EST) athologist Signature POC Glucose 81 65 - 199 [facility] mg/dL [facility] Comment: Supplemental ranges: <140 mg/dL before meals <180 mg/dL all other times of the day Specimen Anatomical Collection Method Collection Time Receive d Time (Source) Location / / Volume Laterality Blood specimen 08/17/2017 1:04 PM 017 1:04 (specimen) EST PM EST Syeda Kaminski MD POINT OF CARE TEST ORDERABLE S Performing Organization Address City/State/[place] [address] documented in this encounter Visit Diagnoses Diagnosis 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 Secondary and unspecified malignant neop lasm of lymph nodes, site unspecified documented in this encounter Administered Medications Inactive Administered Medications - up to 3 most recent administrations Medication Order MAR Action Action Date Dose Rate Site fludeoxyglucose (F-18) FDG Given 08/17/2017 1:13 PM EST 15.8 mCi injection 15.8 mCi 15.8 mCi, Intravenous, ONCE PRN, 1 dose, Starting on Wed08/17/17 at 1313, Until Wed08/17/17 at 1313, Per Protocol, RACF, Routine documented in this encounter Care Teams Gizzard Puller Relationship Specialty Start Date End Date Loren Cortez APRN PCP - General Family Medicine 05/06/17 [address] [place] [address] documented as of this encounter
--- OUTSIDE RECORDS SUMMARY | 2022-05-08 01:05 | XMS_ITS | Encounter Summary ---
:1960 Author Organization [facility] [address] Care Team Providers Name Role Phone Loren Cortez APRN Primary Care Provider [phone] Encounter Details Date Type Department Care Team Description 01/12/2018 Office Visit Hematology and Maria Abbott tic melanoma Oncology at [facility] MD Gordy to lymph node [facility] [address] [place] GENERAL SURGERY [address] [place] [address] [phone] (Wo rk) Social History Tobacco Use Types Packs/Day Years Used Date Never Smoker Smokeless Tobacco: Never Used Alcohol Use Standard Drinks/Week Comments Yes 1 (1 standard drink = 0.6 oz pure alcoho l) Sex Assigned at Date Recorded Not on file documented as of this encounter Last Filed Vital Signs Vital Sign Reading Time Taken Comments Blood Pressure - - Pulse - - Temperature 36.6 ??C (97.9 ??F) 01/12/2018 10:54 AM EDT Respiratory Rate - - Oxygen Saturation - - Inhaled Oxygen Concentration - - Weight - - Height - - Body Mass Index - - documented in this encounter Progress Notes Maria Abbott MD - 01/12/2018 11:00 AM EDT Surgical Oncology Melanoma FOllow Up Visit Dx: [...] axillary sentinel node #1: - Rare enlarged MelanA/[id number]-ojpoolmc intraparenchymal cells suspicious for ??micrometastatic melanoma C. Left axillary sentinel node #2: - One lymph node negative for melanoma (0/1) D. Left axillary sentinel node #3: - One lymph node negative for melanoma (0/1) History of Present Illness: Annette Osorio is here for routine follow up for stage IIIA melanoma. She reports overall doing well since surgery. She has had routine skin exams with Dr Franco with no new concerning lesions. She does note that she has a collection of veins in her left lower leg, varicose veins that she is contemplating treatment since they are tender. No new nodules, lumps or bumps. She had her suveillance scan last in Aug which was negative. Overall feels well. No new DUMONT, CP, or SOB, cough, abd pain or blood in the stool. No new bony pain or tenderness. Active Ambulatory Problems Diagnosis Date Noted ??? Melanoma of back 05/06/2017 ??? Neoplasm of uncertain behavior 05/06/2017 ??? Malignant melanoma of torso excluding breast 07/08/2017 ??? 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 No Resolved Ambulatory Problems Past Medical History: Diagnosis Date ??? Melanoma 05/06/2017 ??? Melanoma of back 05/06/2017 Past Surgical History: Procedure Laterality Date ??? LEG SURGERY ??? ORTHOPEDIC SURGERY Age 3 - legs straightened - bilaterally ??? PRO ADJ TISS TRANSFER/REARRANGEMENT ANY AREA 30.1-60 SQCM Left 06/10/2017 ADJACENT TISSUE TRANSFER OR REARRANGEMENT; 30.1 TO 60.0 SQ CM, BACK (WRVU 12.65) performed by Maria Abbott MD at [facility] MAIN OR ??? PRO BX/REMV, LYMPH NODE, DEEP AXILL Left 06/10/2017 BIOPSY OR EXCISION OF LYMPH NODE(S), OPEN, DEEP AXILLARY NODE(S) (WRVU 6.43) performed by Maria Abbott MD at [facility] MAIN OR ??? PRO EXC SKIN MALIG 3.1-4CM TRUNK, ARM, LEG N/A 06/10/2017 EXC MALIGNANT LESION, MINGO 3.1 TO 4.0CM, TRUNK (WRVU 3.17) performed by Maria Abbott MD at [facility] MAIN OR ??? PRO INTRAOP SENTINEL LYMPH ID W/DYE INJECTION N/A 06/10/2017 INTRAOPERATIVE ID (MAPPING) SENTINEL LYMPH NODE,INCLUDES INJECTION (WRVU 2.5) performed by Maria Abbott MD at [facility] MAIN OR ??? TONSILLECTOMY No current outpatient prescriptions on file prior to visit. No current facility-administered medications on file prior to visit. Allergies as of 01/12/2018 ??? (No Known Allergies) PE: Temp 36.6 ??C (97.9 ??F) Appears well. She has a well-healed incision on the left back. No erythema. No swelling. Left axilla well well healed incision. No seroma. No palpable LNs in the neck axilla or groin. 01/12/18 Title: Ultrasound Axilla Report - LEFT Findings: Three normal appearing lymph nodes seen largest measuring 1.8 x 0.5 x 0.8 cm. All seen with fatty hilums. Three morphologically benign left axillary lymph nodes. Assessment: Annette Osorio is a 56 y.o. year old female with no significant PMH with malignant melanoma superficial spreading type of the left mid-back, 1.48 mm thickness, non-identifed ulceration, 6 mitoses per mm2 s/p WLE and SLNB which mapped to left axilla with 1+ SLN ([id number] per AJCC TNM staging, 7th edition). Path stage IIIA. No evidence of recurrence on exam or Ultrasound imaging today. We discussed the risk of recurrence and the importance of skin exams and ultrasound surveillance. I educated the patient on self lymph node basin exams as well. Plan: - We will see her in four months with surveillance axillary US - Full skin checks by dermatology Q3-6mths - Medical oncology follow up - Dr Coleman - CT imaging per Dr Virginia Landa V. MD Joanie Surgical Oncology documented in this encounter Plan of Treatment Not on filedocumented as of this encounter Results US Extremity Non Vascular Limited Left (06/10/2018 8:49 AM EDT) Anatomical Region Laterality Modality Ultrasound Specimen (Source) Anatomical Collection Method Collection Time Re ceived Time Location / / Volume Laterality 06/10/2018 8:50 AM EDT Impressions 06/10/2018 9:02 AM EDT There are two small lymph nodes seen in the left axilla with sonographically benign features. No lymph nodes with so nographically worrisome features are seen. ? Anish lopez MD Electronically Signed Final Report ?? 09:02 am Narrative 06/10/2018 9:02 AM EDT Ultrasound Left Axilla ?(Signed Final 06/10/2018 09:02 am) Report PATIENT INFO: ID #: ? [id number] ?: ??[birth year] (57 yrs) Name: ? ANNETTE OSORIO ?Visit Date: 06/10/2018 08:50 am PERFORMED BY: Performed By: ? Lakisha Solomon RDMS Attending: ?Ivroy REDDY, Tony Zhou Referred By: ?MARIA ABBOTT Location: ? [place] SERVICE(S) PROVIDED: ??UEXTLMTL - Extremity Limited Non Vasc ular - Left ?[id number] ??- [id number] INDICATIONS: ??stage III melanoma. LEFT axillary Ln ??surveillance. MELANOMA PROTOCOL COMPARISON: Ultrasound: 01/12/18. CT: 08/17/17. --------- FINDINGS: --------- Title: ? Ultrasound Left Axilla Report Findings: ?Two lymph nodes noted, l argest measurin.0 x ?0.5 x 1.2 cm. Procedure Note Anish Dodson MD - 06/10/2018Format ting of this note might be different from the original. Ultrasound Left Axilla (Signed Final 09:02 am) Report PATIENT INFO: ID #: [id number] : 60 (57 y rs) Name: ANNETTE OSORIO Visit Date: 06/10 08:50 am PERFORMED BY: Performed By: Celena Solomon RDMS Attending: Anish Dodson MD Referred By: MARIA ABBOTT Location: [place] SERVICE(S) PROVIDED: UEXTLMTL - Extremity Limited Non Vascul ar - Left [id number] - [id number] INDICATIONS: stage III melanoma. LEFT axillary Ln surveillance. MELANOMA PROTOCOL COMPARISON: Ultrasound: 01/12/18. CT: 08/17/17. --------- FINDINGS: --------- Title: Ultrasound Left Axilla Report Findings: Two lymph nodes noted, larges t measurin.0 x 0.5 x 1.2 cm. IMPRESSION There are two small lymph nodes seen in the left axilla with sonographically benign features. No lymph nodes with so nographically worrisome features are seen. Anish Dodson MD Electronically Signed Final Report 06/10 09:02 am Maria Kaminski MD IMG US GEN ORDERABLES documented in this encounter Visit Diagnoses Diagnosis 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 Secondary and unspecified malignant neop lasm of lymph nodes, site unspecified 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 Secondary and unspecified malignant neop lasm of lymph nodes, site unspecified documented in this encounter Care Teams Welding Production Supervisor Relationship Specialty Start Date End Date Loren Cortez APRN PCP - General Family Medicine 05/06/17 [address] [place] [address] documented as of this encounter
--- OUTSIDE RECORDS SUMMARY | 2022-05-08 01:05 | XMS_ITS | Encounter Summary ---
:1960 Author Organization [facility] [place] [address] Care Team Providers Name Role Phone Loren Cortez APRN Primary Care Provider [phone] Encounter Details Date Type Department Care Team Description 06/22/2017 Telephone General Surgery at [facility] Syeda Nair MD [facility] [place] [address] GENERAL SURGERY [phone] [place] [phone] (Wo rk) Social History Tobacco Use Types Packs/Day Years Used Date Never Smoker Smokeless Tobacco: Never Used Alcohol Use Standard Drinks/Week Comments Yes 1 (1 standard drink = 0.6 oz pure alcoho l) Sex Assigned at Date Recorded Not on file documented as of this encounter Miscellaneous Notes Telephone Encounter - Syeda Nair MD - 06/22/2017 1:12 PM EDT Called to discuss path results. No answer. Left a message to call office. CVA documented in this encounter Plan of Treatment Not on filedocumented as of this encounter Visit Diagnoses Not on filedocumented in this encounter Care Teams Slurry Tank Tender Relationship Specialty Start Date End Date Loren Cortez APRN PCP - General Family Medicine 05/06/17 [address] [place], [place] [id number] documented as of this encounter
--- OUTSIDE RECORDS SUMMARY | 2022-05-08 01:05 | XMS_ITS | Encounter Summary ---
:1960 Author Organization [facility] [place] [address] Care Team Providers Name Role Phone Loren Cortez RN SURGICAL PCU Primary Care Provider [phone] Reason for Visit Reason Comments Follow Up Surgery Encounter Details Date Type Department Care Team Description 06/10/2018 Office Visit General Surgery at [facility] Freeman melanoma, [facility], RN SURGICAL PCU unspecified site [facility] [address] [place] SURGERY [address] [place] [address] [phone] (Wo rk) Social History Tobacco Use Types Packs/Day Years Used Date Never Smoker Smokeless Tobacco: Never Used Alcohol Use Standard Drinks/Week Comments Yes 1 (1 standard drink = 0.6 oz pure alcoho l) Sex Assigned at Date Recorded Not on file documented as of this encounter Progress Notes Porsha Freeman APRN - 06/10/2018 9:45 AM EDT Surgical Oncology Melanoma FOllow Up [...] axillary sentinel node #1: - Rare enlarged MelanA/[id number]-byarjnee intraparenchymal cells suspicious for ??micrometastatic melanoma C. [...] Franco with no new concerning lesions. She isfollowed by Dr Coleman who she sees in August with a PET/CT. No new nodules, lumps or bumps. Overall feels well. No new DUMONT, CP, or SOB, cough, abd pain or blood in the stool. No new bony pain or tenderness. PE: Appears well. She has a well-healed incision on the left back. No erythema. No swelling.No nodules or worrisome skin lesions. Left axilla well well healed incision. No seroma. No palpable LNs in the neck axilla or groin. Left axillary US today: There are two small lymph nodes seen in the left axilla with sonographically benign features. No lymph nodes with sonographically worrisome features are seen. Assessment: Annette Osorio is a 57 y.o. year old female with no significant PMH with malignant melanoma superficial spreading type of the left mid-back, 1.48 mm thickness, non-identifed ulceration, 6 mitoses per mm2 s/p WLE and SLNB which mapped to left axilla with 1+ SLN ([id number] per AJCC TNM staging, 7th edition). Path stage IIIA. No evidence of recurrence on exam or Ultrasound imaging today. We discussed the risk of recurrence and the importance of skin exams and ultrasound surveillance. I educated the patient on self lymph node basin exams as well. Plan: - We will see her in 6 months with surveillance axillary US - Full skin checks by dermatology Q3-6mths - Medical oncology follow up - Dr Coleman - CT/PET imaging per Dr Coleman documented in this encounter Plan of Treatment [...] t he number below. Electronically signed by: Kaylynn Allen [facility] ([phone]), at 10/20/2018 11 :29 AM ?Kaylynn alberts MD Electronically Signed Final Report ?? 11:36 am Narrative 10/20/2018 11:36 AM EST Ultrasound Left Axilla ?(Signed Final 10/20/2018 11:36 am) Report PATIENT INFO: ID #: ? [id number] ?: ??60 (58 yrs) Name: ? ANNETTE OSORIO ?Visit Date: 10/20/2018 11:20 am PERFORMED BY: Performed By: ? Davis Salmeron RDMS Attending: ?Tiffany REDDY, Kaylynn P. Resident: ? Gregg Graham MD Referred By: ?PORSHA FREEMAN Location: ? [place] SERVICE(S) PROVIDED: ??UEXTLMTL - Extremity Limited Non Vasc ular - Left ?[id number] ??- [id number] INDICATIONS: ??hx left mid back melanoma, interval [...] 11:36 am) Report PATIENT INFO: ID #: [id number] : 60 (58 y rs) Name: ANNETTE OSORIO Visit Date: 10/20 11:20 am PERFORMED BY: Performed By: Davis Salmeron RDMS Attending: Kaylynn Allen MD Resident: Gio Graham MD Referred By: PORSHA FREEMAN Location: [place] SERVICE(S) PROVIDED: UEXTLMTL - Extremity Limited Non Vascul ar - Left [id number] - [id number] INDICATIONS: hx left mid back melanoma, interval [...] t he number below. Electronically signed by: Kaylynn Allen [facility] ([phone]), at 10/20/2018 11 :29 AM Kaylynn Allen MD Electronically Signed Final Report 10/20 11:36 am Porsha Freeman APRN [facility] GEN ORDERABLES documented in this encounter Visit Diagnoses Diagnosis Malignant melanoma, unspecified site Malignant melanoma, unspecified site documented in this encounter Care Teams Hot Air Furnace Installer Repairer Relationship Specialty Start Date End Date Loren Cortez APRN PCP - General Family Medicine 05/06/17 [address] [place] [address] documented as of this encounter
--- OUTSIDE RECORDS SUMMARY | 2022-05-08 01:05 | XMS_ITS | Encounter Summary ---
:1960 Author Organization [place] [address] Care Team Providers Name Role Phone Loren Cortez APRN Primary Care Provider [phone] Encounter Details Date Type Department Care Team Description 07/06/2017 Multidisciplinary Care Hematology and Juan David Coleman, Committee Oncology at [facility] [address] [place] HEMATOLOGY/ONCOL [address] OGY DEPT [phone] [place] [address] Social History Tobacco Use Types Packs/Day Years Used Date Never Smoker Smokeless Tobacco: Never Used Alcohol Use Standard Drinks/Week Comments Yes 1 (1 standard drink = 0.6 oz pure alcoho l) Sex Assigned at Date Recorded Not on file documented as of this encounter Progress Notes Juan David Coleman MD - 07/06/2017 11:59 PM EDT Melanoma - Tumor Board Note Date Presented: 07/06/2017 Presenting Physician: Joanie Diagnosis/Tumor Site: Left mid back 1.48 mm melanoma T2a with 6 mitosis Left axillary sentinel lymph node 1 out of 3 nodes has IHC positive cells Is this Metastatic Disease: No Synopsis of History/HPI: Imaging: Pathology/Histology: Stage: Clinical Data (Exams, Labs, etc.): Molecular Pathology Results: Clinical Trial Availability: N/A Options Discussed: N/A Recommendations: Follow as Stage IIIa disease, follow-up with medical oncologist with restaging scan DISCLAIMER: The patient was discussed and the tumor board made recommendations but it is ultimately up to the treatment provider(s) and the patient to determine the patient???s care. documented in this encounter Plan of Treatment Not on filedocumented as of this encounter Visit Diagnoses Not on filedocumented in this encounter Care Teams Low Altitude Air Defense Officer Relationship Specialty Start Date End Date Loren Cortez APRN PCP - General Family Medicine 05/06/17 [address] [place] [address] documented as of this encounter
--- OUTSIDE RECORDS SUMMARY | 2022-05-08 01:05 | XMS_ITS | Encounter Summary ---
:1960 Author Organization [facility] [place] [address] Care Team Providers Name Role Phone oLren Cortez APRN Primary Care Provider [phone] Encounter Details Date Type Department Care Team Description 02/17/2018 Hospital Encounter Hematology and Maligna nt melanoma of Oncology at [facility] [place] [address] Social History Tobacco Use Types Packs/Day [...] Priority Date/Time Associated Comments Diagnosis HEMOGRAM STAT 02/17/2018 8:12 AM Malignant melanoma Res ults for this EDT of torso excluding procedure are in breast the results section. DIFFERENTIAL, STAT 02/17/2018 8:12 AM Malignant melanoma Re sults for this AUTOMATED EDT of torso excluding procedure are in breast the results section. CBC (WITH DIFF) STAT 02/17/2018 8:12 AM Malignant melanoma EDT of torso excluding breast LACTATE DEHYDROGENASE STAT 02/17/2018 8:12 AM Malignant paul anoma Results for this EDT of torso excluding procedure are in breast the results section. COMPREHENSIVE STAT 02/17/2018 8:12 AM Malignant melanoma Re sults for this METABOLIC PANEL EDT of torso excluding proced ure are in (NON-FASTING) breast the results section. documented in this encounter Results Differential, Automated (02/17/2018 8:12 AM EDT) P athologist Signature Neutrophils % 46.8 % [facility] Neutr Abs (ANC) 2.29 1.70 - [facility] 6.10 [facility] x10(3)/[facility] LABORATORY Lymphocytes % 44.9 % [facility] Lymphocytes Abs 2.2 0.9 - 3.2 [facility] x10(3)/[facility] LABORATORY Monocytes % 6.3 % [facility] Monocyte Abs 0.3 0.3 - 0.9 [facility] x10(3)/[facility] LABORATORY Eosinophils % 1.4 % [facility] Eosinophils Abs 0.1 0.0 - 0.4 [facility] x10(3)/[facility] LABORATORY Basophils % 0.6 % [facility] Basophils Abs 0.0 0.0 - 0.1 [facility] x10(3)/[facility] LABORATORY Immature Gran % 0.00 % [facility] Comment: Immature granulocytes(IG's)percentage an d absolute count will include metamyelocytes, myelocytes, and promyelo cytes. Blood smears from CBCs yielding IG's will be scanned manually for concor dance. If this scan disagrees with the automated IG or if promyelocytes are not ed, a manual differential will be performed. Ekaterina Gran Abs 0.00 0.00 - 0.04 x10(3)/[facility] Specimen Anatomical Collection Method Collection Time Receive d Time (Source) Location / / Volume Laterality Blood specimen 02/17/2018 8:12 AM 018 8:22 (specimen) EDT AM EDT Resulting Agency Comment Spec In Lab Juan David Coleman MD HEMATOLOGY ORDERABLES Performing Organization Address City/State/ZIP [place] [address] (ABNORMAL) Hemogram (02/17/2018 8:12 AM EDT) Analysis Performed At Patho logist Time Signature WBC 4.9 4.0 - 9.5 [facility] x10(3)/[facility] LABORATORY RBC 3.89 (L) 4.00 - JUJU GOMEZEDILBERTO 5.21 [facility] x10(6)/[facility] LABORATORY Hemoglobin 11.7 11.7 - [facility] GOMEZEDILBERTO 15.5 gm/dL [facility] Hematocrit 36.3 35.7 - [facility] FREEDMANC[facility] 45.8 % [facility] MCV 93.3 82.6 - [facility] 94.4 [facility] LABORATORY MCH 30.1 27.1 - [facility] GOMEZEDILBERTO 32.0 pg [facility] MCHC 32.2 31.7 - [facility] GOMEZEDILBERTO 35.0 gm/dL [facility] Platelets 298 145 - 357 [facility] x10(3)/[facility] LABORATORY RDWSD 47.4 (H) 37.0 - [facility] EDILBERTO 46.0 [facility] LABORATORY RDWCV 14.0 11.5 - [facility] 14.1 % [facility] MPV 10.5 7.6 - 12.9 [facility] EDILBERTO [facility] LABORATORY nRBC % Auto 0.0 % [facility] nRBC Abs Auto 0.000 0.000 - JUJ[facility] EDILBERTO 0.000 [facility] x10(3)/[facility] LABORATORY Specimen Anatomical Collection Method Collection Time Receive d Time (Source) Location / / Volume Laterality Blood specimen 02/17/2018 8:12 AM 018 8:22 (specimen) EDT AM EDT Resulting Agency Comment Spec In Lab Juan David Coleman MD HEMATOLOGY ORDERABLES Performing Organization Address City/[facility] Code Phon e Number [place] [address] Lactate Dehydrogenase (02/17/2018 8:12 AM EDT) P athologist Signature LDH 203 110 - 220 [facility] unit/L [facility] Specimen Anatomical Collection Method Collection Time Receive d Time (Source) Location / / Volume Laterality Blood specimen 02/17/2018 8:12 AM 018 8:22 (specimen) EDT AM EDT Resulting Agency Comment Spec In Lab Juan David Coleman MD CHEMISTRY ORDERABLES Performing Organization Address City/State/ZIP [place] [address] Comprehensive metabolic panel (non-fasting) (02/17/2018 8:12 AM EDT) athologist Signature Glucose Lvl 94 65 - 199 [facility] mg/dL [facility] Comment: Diabetes: >=200 mg/dL plus symp toms BUN 17 8 - 18 mg/dL [facility] Creatinine 0.86 0.70 - 1.20 mg/dL [facility] Sodium 142 135 - 145 mmol/L [...] estions. Chloride 103 98 - 107 mmol/L [facility] CO2 26 22 - 31 mmol/L [facility] Anion Gap 13 5 - 15 mmol/L [facility] Calcium 9.5 8.5 - 10.5 mg/dL [facility] Total Protein 7.1 6.1 - 8.0 gm/dL [facility] Albumin 4.7 3.2 - 5.2 gm/dL [facility] AST 18 0 - 30 unit/L [facility] ALT 18 0 - 30 unit/L [facility] Alk Phos 75 40 - 104 unit/L [facility] Total Bilirubin 0.4 0.2 - 1.3 mg/dL [facility] Estimated GFR >60 >=60 [facility] Comment: The reported eGFR should be multiplied b y 1.2 for patients. The MDRD is not an appropriate measure o f renal function for patients with body mass extremes or in patients with acute kidney failure. http://[employer]/DHnkdep http://[employer]/DHMCnkf Specimen Anatomical Collection Method Collection Time Receive d Time (Source) Location / / Volume Laterality Blood specimen 02/17/2018 8:12 AM 018 8:22 (specimen) EDT AM EDT Resulting Agency Comment Spec In Lab Juan David Coleman MD CHEMISTRY ORDERABLES Performing Organization Address City/State/[place] [address] documented in this encounter Visit Diagnoses Diagnosis Malignant melanoma of torso excluding br east documented in this encounter Care Teams Seo Analyst Relationship Specialty Start Date End Date Loren Cortez APRN PCP - General Family Medicine 05/06/17 [address] [place] [address] documented as of this encounter
--- OUTSIDE RECORDS SUMMARY | 2022-05-08 01:05 | XMS_ITS | Encounter Summary ---
:1960 Author Organization [facility] [place] [address] Care Team Providers Name Role Phone Loren Cortez APRN Primary Care Provider [phone] Reason for Visit Reason Comments Establish Care Melanoma Consultation (Urgent) - Closed Specialty Diagnoses / Procedures Referred By Contact Refer red To Contact General Surgery Diagnoses History of melanoma Carline Franco MD [place], Christina V, [facility] Danielle ROJ[address] RD-DERMATOLGY [facility] [place] [address] [place] [address] Phone: Fax: Referral ID Status Reason Start Date Expiration Date Visits V isits Requested Authorized [id number] Closed Consult, 05/11/2017 05/11/2018 1 1 Test & Treat Encounter Details Date Type Department Care Team Description 05/21/2017 Office Visit General Surgery at [facility] Maria Abbott V, Melanoma of back [facility] MD [place] [facility] [phone] GENERAL SURGERY [phone] [place], [place] [address] (Wo rk) Social History Tobacco Use Types Packs/Day Years Used Date Never Smoker Smokeless Tobacco: Never Used Alcohol Use Standard Drinks/Week Comments Yes 1 (1 standard drink = 0.6 oz pure alcoho l) Sex Assigned at Date Recorded Not on file documented as of this encounter Last Filed Vital Signs Vital Sign Reading Time Taken Comments Blood Pressure 125/77 05/21/2017 8:50 AM EDT Pulse 64 05/21/2017 8:50 AM EDT Temperature 36.5 ??C (97.7 ??F) 05/21/2017 8:50 AM EDT Respiratory Rate 16 05/21/2017 8:50 AM EDT Oxygen Saturation 100% 05/21/2017 8:50 AM EDT Inhaled Oxygen Concentration - - Weight 89.9 kg (198 lb 3.2 oz) 05/21/2017 8:50 AM EDT Height - - Body Mass Index 31.99 05/06/2017 1:31 PM EDT documented in this encounter Progress Notes Maria Abbott MD - 05/21/2017 9:00 AM EDT Images from the original note were not included. Surgical Oncology Consultation Note Reason for Visit: Rosa Shah is a 56 y.o. female referred by Carline Franco MD for evaluation of melanoma of left back. History of the present illness: Rosa Shah is a 56 y.o. year old female otherwise healthy who approximately 12 months ago she noted her moles were starting to change color but related it to age. A few months ago her granddaughter noticed one of the moles on her back was changing, getting big and rasied and patient noted it to be bubbly. She underwent evaluation on May 06, 2017 by Gill hall PA-C and Dr. Alicia Alcala from Dermatology who noted the lesion to be 1.4 x 1cm dark brown/black plaque with blue romero veil at center, radial streaming and pseudopods at periphery. On May 06, 2017 she underwent an excisional biopsy (2mm margins) by [facility]emaker Dr. Carline Franco with positive pathology reported as follows: Malignant Melanoma, superficial spreading type Thickness 1.48 mm. Ulceration was not identified The lesion had 6 mitoses per mm2. Peripheral margin was negative. Deep margin was negative The patient presents today for evaluation and discussion of treatment options. In addition to the above history she states that the mole has no associated itching, bleeding or tenderness only bubbling.She is not personally concerned about any other moles or skin lesions. She denies noticing any abnormal adenopathy. She reports moderate sun exposure during childhood/adolescence with peeling suburns. Patient reportssignificant prior usage of a tanning bed since she used to own one. Her family history is reported below and is notable for negative history of melanoma or other skin cancers. Overall, she feels well. Denies fatigue. Denies weight loss. Denies headaches. No abd pain or blood in her stool. No new bony pain or tenderness. She was not accompanied to this visit. Active Ambulatory Problems Diagnosis Date Noted ??? Melanoma of back 05/06/2017 ??? Neoplasm of uncertain behavior 05/06/2017 Resolved Ambulatory Problems Diagnosis Date Noted ??? No Resolved Ambulatory Problems Past Medical History: Diagnosis Date ??? Melanoma of back 05/06/2017 Past Surgical History: Procedure Laterality Date ??? LEG SURGERY ??? ORTHOPEDIC SURGERY Age 3 - legs straightened - bilaterally ??? TONSILLECTOMY Review of systems: A 12 point comprehensive ROS was reviewed with the patient. It was otherwise negative except for what was stated in the HPI. she otherwise denies high blood pressure, heart disease, lung disease, diabetes, and infectious diseases. No current outpatient prescriptions on file. Allergies: No Known Allergies Social History: Social History Social History ??? Marital status: [...] on file Social History Narrative 1 daughter History reviewed. No pertinent family history. Physical Examination: Constitutional: This is a 56 y.o. female in no apparent distress. BP 125/77 Pulse 64 Temp 36.5 ??C (97.7 ??F) (Oral) Resp 16 Wt 89.9 kg (198 lb 3.2 oz) [id number]% BMI 31.99 kg/m2 A focused examination of the biopsy site on her left mid back revealed a 4 cm well healed incision with surrounding irritation. Mild erythema and no signs of infection. No residual pigment. There were no satellite or in-transit nodules palpated. Lymphatic basin exam: There was no palpable adenopathy in the bilateral supraclavicular, cervical, axillary or inguinal regions. Eyes: anicteric, extra ocular movements are intact Neuro: No focal deficits. Hearing and speech intact Psych: the patient is alert and oriented. Normal affect. Heart: Regular rate and rhythm. No peripheral edema Lungs: Clear bilaterally with good air intake Abdomen: Soft, non-tender, non-distended. There are normal active bowel sounds, no hepatosplenomegaly. Musculoskeletal: The patient has normal gait, range of motion, and muscle strength Skin: warm, dry, good turgor, non-icteric. Assessment and plans: Rosa Shah is a 56 y.o. year old female with no significant PMH now with biopsy proven malignant melanoma superficial spreading type of the left mid- back, 1.48 mm thickness, non-identifed ulceration, 6 mitoses per mm2 (pT2a per AJCC TNM staging, 7th edition). Lymph nodes are clinically negative. Clinical stage IIA. This diagnosis was discussed with the patient at length. Based on the tumor depth, a re-excision wide local excision (WLE) was recommended with 1-2 cm margins for primary tumor removal. She has laxity of her back skin so I do not think that she will need grafting or flap, but we discussed flap if necessary. The concept of tyron staging with sentinel lymph node biopsy (SLNBx) was also discussed. Using Technetium sulfur colloid injected by Nuclear Medicine colleagues on the day of surgery at the biopsy site in addition to intra- operative blue dye (Lymphazurin) the sentinel lymph node(s) will be localized and excised for pathologic analysis. We discussed the mapping to possible neck, axilla and groin. We reviewed the significance of a positive sentinel lymph node, which would makeher pathological stage III. She would need distant staging imaging and we would discuss completion lymph node dissection versus lymph node surveillance. We will discuss this further once we get final staging pathology. We also spent time reviewing the nature and natural history of melanoma. We discussed recurrence risk and common recurrence patterns. She is at even more increased risk of getting additional melanomas given her history of significant tanning bed use. We also reviewed the importance of full skin checksand sun protection. I also recommended that her first degree relatives get full checks by a aluminum siding applicator as least yearly as well. The patient asked multiple questions which were answered to her satisfaction and she would like to proceed with plan as follows: 1) Wide excision with 1-2 cm margins of the left mid-back melanoma, lymphatic mapping, SLNB with lymphoscintigraphy. I explained the implications, indications and alternatives to the proposed treatmentplan as well as the risks, including infection, bleeding/hematoma, seroma, need for additional surgery, lymphedema. Consent form has been signed. Same day surgery, out patient. 2) Present at melanoma tumor board 3) Continue dermatology follow up Q3 months for full body skin exams SCRIBE ATTESTATION Suzette Delcid has performed the documentation for this encounter in the presence of and acting asa scribe for MARIA ABBOTT MD. I performed the above scribed service and agree with the accuracy of the documentation in this encounter. Maria Abbott MD Surgical Oncology documented in this encounter Plan of Treatment Not on filedocumented as of this encounter Visit Diagnoses Diagnosis Melanoma of back Malignant melanoma of skin of trunk, exc ept scrotum documented in this encounter Care Teams Supervisor Education Relationship Specialty Start Date End Date Loren Cortez APRN PCP - General Family Medicine 05/06/17 [address] [place] [address] documented as of this encounter
--- OUTSIDE RECORDS SUMMARY | 2022-05-08 01:05 | XMS_ITS | Encounter Summary ---
:1960 Author Organization [facility] [place] [address] Care Team Providers Name Role Phone Loren Cortez APRN Primary Care Provider [phone] Reason for Referral Consultation (Urgent) - Closed Specialty Diagnoses / Procedures Referred By Contact Refer red To Contact General Surgery Diagnoses History of melanoma Carline Franco MD [place], Christina V, [facility] Danielle ROJAS RD-DERMATOLGY [facility] [place] [address] [place] [address] Phone: Fax: Referral ID Status Reason Start Date Expiration Date Visits V isits Requested Authorized [id number] Closed Consult, 05/11/2017 05/11/2018 1 1 Test & Treat Encounter Details Date Type Department Care Team Description 05/11/2017 Telephone Dermatology at [facility] Carline Woodard MD [address] [place] [phone] CRYSTAL ALVARADO-DERMATOLGY [phone] [place], [place] [address] (Wo rk) Social History Tobacco Use Types Packs/Day Years Used Date Never Smoker Sex Assigned at Date Recorded Not on file documented as of this encounter Miscellaneous Notes Telephone Encounter - Carline Franco MD - 05/11/2017 1:49 PM EDT I spoke to Ms. Shah regarding excisional biopsy results, showing pt2a melanoma of the left lower back. We discussed referral to Dr. Nair for WLE and SLNB. Follow up in 3 months in dermatology for full skin exam. documented in this encounter Plan of Treatment Scheduled Referrals Name Type Priority Associated Diagnoses Order S chedule Referral to Outpatient Referral Routine History of melanoma O rdered: Surgical Oncology 05/11/2017 documented as of this encounter Visit Diagnoses Diagnosis History of melanoma Personal history of malignant melanoma o f skin documented in this encounter Care Teams Mail Censor Relationship Specialty Start Date End Date Loren Cortez APRN PCP - General Family Medicine 05/06/17 [address] [place] [address] documented as of this encounter
--- OUTSIDE RECORDS SUMMARY | 2022-05-08 01:05 | XMS_ITS | Encounter Summary ---
:1960 Author Organization [facility] [place] [address] Care Team Providers Name Role Phone Loren Cortez APRN Primary Care Provider [phone] Encounter Details Date Type Department Care Team Description 07/09/2017 Hospital Encounter Hematology and Maligna nt melanoma of Oncology at [facility] torso [place] [address] Social History Tobacco Use Types Packs/Day [...] Priority Date/Time Associated Comments Diagnosis HEMOGRAM STAT 07/09/2017 1:42 PM Malignant melanoma Res ults for this EDT of torso excluding procedure are in breast the results section. DIFFERENTIAL, STAT 07/09/2017 1:42 PM Malignant melanoma Re sults for this AUTOMATED EDT of torso excluding procedure are in breast the results section. CBC (WITH DIFF) STAT 07/09/2017 1:42 PM Malignant melanoma EDT of torso excluding breast LACTATE DEHYDROGENASE STAT 07/09/2017 1:42 PM Malignant paul anoma Results for this EDT of torso excluding procedure are in breast the results section. COMPREHENSIVE STAT 07/09/2017 1:42 PM Malignant melanoma Re sults for this METABOLIC PANEL EDT of torso excluding proced ure are in (NON-FASTING) breast the results section. documented in this encounter Results (ABNORMAL) Differential, Automated (07/09/2017 1:42 PM EDT) [facility] Method Time Signature Neutrophils % 37.7 % [facility]OR[facility]ORY Neutr Abs (ANC) 2.45 1.70 - [facility] 6.10 [facility] x10(3)/[facility] LABORATORY Lymphocytes % 53.2 % [facility] Lymphocytes Abs 3.5 (H) 0.9 - 3.2 [facility] x10(3)/[facility] LABORATORY Monocytes % 6.0 % [facility] Monocyte Abs 0.4 0.3 - 0.9 [facility] x10(3)/[facility] LABORATORY Eosinophils % 2.2 % [facility] Eosinophils Abs 0.1 0.0 - 0.4 [facility] x10(3)/[facility] LABORATORY Basophils % 0.6 % [facility] Basophils Abs 0.0 0.0 - 0.1 [facility] x10(3)/[facility] LABORATORY Immature Gran % 0.30 % [facility] Comment: Immature granulocytes(IG's)percentage an d absolute count will include metamyelocytes, myelocytes, and promyelo cytes. Blood smears from CBCs yielding IG's will be scanned manually for concor dance. If this scan disagrees with the automated IG or if promyelocytes are not ed, a manual differential will be performed. Ekaterina Gran Abs 0.02 0.00 - 0.04 x10(3)/[facility] MAR Y [facility] LABORATORY Specimen Anatomical Collection Method Collection Time Receive d Time (Source) Location / / Volume Laterality Blood specimen 07/09/2017 1:42 PM 017 1:56 (specimen) EDT PM EDT Resulting Agency Comment Spec In Lab Juan David Coleman MD HEMATOLOGY ORDERABLES Performing Organization Address City/State/[place] [address] (ABNORMAL) Hemogram (07/09/2017 1:42 PM EDT) [facility] Method Time Signature WBC 6.5 4.0 - 9.5 [facility] [place] x10(3)/[facility] LABORATORY RBC 4.00 4.00 - [facility] [place] 5.21 [facility] x10(6)/[facility] LABORATORY Hemoglobin 12.2 11.7 - [facility] [place] 15.5 gm/dL [facility] Hematocrit 36.5 35.7 - [facility] 45.8 % [facility] MCV 91.3 82.6 - [facility] 94[facility]4 [facility] LABORATORY MCH 30.5 27.1 - [facility] [place] 32.0 pg [facility] MCHC 33.4 31.7 - [facility] [place] 35.0 gm/dL [facility] Platelets 282 145 - 357 [facility] [place] x10(3)/[facility] LABORATORY RDWSD 43.7 37.0 - [facility] ED[place] 46.0 [facility] LABORATORY RDWCV 13.0 11.5 - [facility] 14.1 % [facility] LABORATORY MPV 11.1 7.6 - 12.9 [facility] LABORATORY nRBC % Auto 0.3 % [facility] LABORATORY nRBC Abs Auto 0.020 (H) 0.000 - [facility] [place] 0.000 [facility] x10(3)/[facility] LABORATORY Specimen Anatomical Collection Method Collection Time Receive d Time (Source) Location / / Volume Laterality Blood specimen 07/09/2017 1:42 PM 017 1:56 (specimen) EDT PM EDT Resulting Agency Comment Spec In Lab Juan David Coleman MD HEMATOLOGY ORDERABLES Performing Organization Address City/State/[place] [address] Lactate Dehydrogenase (07/09/2017 1:42 PM EDT) P athologist Signature LDH 194 110 - 220 [facility] unit/L [facility] LABOR[facility]ORY Specimen Anatomical Collection Method Collection Time Receive d Time (Source) Location / / Volume Laterality Blood specimen 07/09/2017 1:42 PM 017 1:56 (specimen) EDT PM EDT Resulting Agency Comment Spec In Lab Juan David Coleman MD CHEMISTRY ORDERABLES Performing Organization Address City/State/ZIP Code Phon e Number [facility] [place] [address] Comprehensive metabolic panel (non-fasting) (07/09/2017 1:42 PM EDT) athologist Signature Glucose Lvl 91 65 - 199 [facility] mg/dL [facility] Comment: Diabetes: >=200 mg/dL plus symp toms BUN 15 8 - 18 mg/dL [facility] Creatinine 0.84 0.70 - 1.20 mg/dL [facility] Comment: Please note that the pediatric reference intervals supplied above were not validated at [facility]. Results from pediatri c patients should be interpreted in conjunction to the patient's age, height and muscle mass. Sodium 143 135 - 145 mmol/L [facility] Potassium 4.1 3.5 - 5.0 mmol/L [facility] Comment: Please note: ??Patients with WBC >100,00 0 may have falsely elevated Potassium levels. ??For accurate Potassium quantif ication in these patients send serum separator tube (gold top) for subsequent determinations. ??Contact the Clinical Chemistry Laboratory if there are any qu estions. Chloride 103 98 - 107 mmol/L [facility] CO2 25 22 - 31 mmol/L [facility] Anion Gap 15 5 - 15 mmol/L [facility] Calcium 9.5 8.5 - 10.5 mg/dL [facility] Total Protein 7.5 6.1 - 8.0 gm/dL [facility] Albumin 4.6 3.2 - 5.2 gm/dL [facility] AST 16 0 - 30 unit/L [facility] ALT 14 0 - 30 unit/L [facility] Alk Phos 72 40 - 104 unit/L [facility] Total Bilirubin 0.2 0.2 - 1.3 mg/dL [facility] LABOR[facility]ORY Estimated GFR >60 >=60 [facility] Comment: This estimated GFR (eGFR) value was calc ulated using the MDRD equation which has been validated on patients between t he ages of 18 and 70. The MDRD should not be used to assess kidney function in patients < 18 years of age or in patients with extremes of body mass, or in patients with acute kidney failure. This value should be multiplied by 1.2 f or patients. For further information please copy and past e the following links into your internet browser. http://[email or web address]/DHnkdep http://Cmed/DHMCnkf Specimen Anatomical Collection Method Collection Time Receive d Time (Source) Location / / Volume Laterality Blood specimen 07/09/2017 1:42 PM 017 1:56 (specimen) EDT PM EDT Resulting Agency Comment Spec In Lab Juan David Coleman MD CHEMISTRY ORDERABLES Performing Organization Address City/State/[place] [address] documented in this encounter Visit Diagnoses Diagnosis Malignant melanoma of torso excluding br east documented in this encounter Care Teams Rug Layer Relationship Specialty Start Date End Date Loren Cortez APRN PCP - General Family Medicine 05/06/17 [address] [place] [address] documented as of this encounter
--- OUTSIDE RECORDS SUMMARY | 2022-05-08 01:05 | XMS_ITS | Encounter Summary ---
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 Syeda Nair MD [facility] Rad Mri Procedures MRI Brain wwo Contrast (Generic) [facility] [place] [address] [place] [address] Referral ID Status Reason Start Date Expiration Date Visits V isits Requested Authorized [id number] Closed Specialty 08/06/2017 09/20/2017 1 1 Service Requested Reason for Visit Diagnostic Test (Routine) - Closed Specialty Diagnoses / Procedures Referred By Contact Refer red To Contact Radiology Diagnoses 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 Syeda Nair MD [facility] Rad Mri Procedures MRI Brain wwo Contrast (Generic) [facility] [address] [place] [address] Referral ID Status Reason Start Date Expiration Date Visits V isits Requested Authorized [id number] Closed Specialty 08/06/2017 09/20/2017 1 1 Service Requested Encounter Details Date Type Department Care Team Description 08/17/2017 Hospital Encounter MRI at [place] Syeda Nair Metastatic melanoma [facility] MD [place] [address] GENERAL SURGERY [phone] [place], [place] [address] Social History Tobacco Use Types [...] Name Priority Date/Time Associated Diagnosis Comme nts MRI BRAIN WWO Routine 08/17/2017 12:51 PM Metastatic melanoma Results for this CONTRAST (GENERIC) EST to lymph node procedur e are in the results section. documented in this encounter Results MRI Brain wwo Contrast (Generic) (08/17/2017 12:51 PM EST) Anatomical Region Laterality Modality Head Magnetic Resonance Specimen (Source) Anatomical Location Collection Method / Collectio n Time Received Time / Laterality Volume Impressions 08/17/2017 1:32 PM EST No sign of metastasis or other acute abnormality Narrative 08/17/2017 1:32 PM EST EXAMINATION: MRI BRAIN WWO CONTRAST (GENERIC) CLINICAL HISTORY: stage III melaoma. rul e out metastasis. TECHNIQUE: Examination is done before and after int ravenous administration of 9 mL of Gadavist COMPARISON: None FINDINGS: The brain pattern and ventricular system appear essentially normal. There are no indications of parenchymal or meningeal metastasis or other acute abnormality. Sign of hemorrhage or vascular pathology . The diffusion pattern is normal. Procedure Note Diaz Rosas MD - 08/17/2017Format ting of this note might be different from the original. EXAMINATION: MRI BRAIN WWO CONTRAST (GEN [place]) CLINICAL HISTORY: stage III melaoma. rul e out metastasis. TECHNIQUE: Examination is done before and after int ravenous administration of 9 mL of Gadavist COMPARISON: None FINDINGS: The brain pattern and ventricular system appear essentially normal. There are no indications of parenchymal or meningeal metastasis or other acute abnormality. Sign of hemorrhage or vascular pathology . The diffusion pattern is normal. 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 Secondary and unspecified malignant neop lasm of lymph nodes, site unspecified documented in this encounter Administered Medications Inactive Administered Medications - up to 3 most recent administrations Medication Order MAR Action Action Date Dose Rate Site gadobutrol (GADAVIST) 1 mMol/mL Given 08/17/2017 12:30 PM EST 9 mLs injection 9 mL 9 mL, Intravenous, ONCE PRN, 1 dose, Starting on Wed08/17/17 at 1206, Until Wed08/17/17 at 1230, Per Protocol, Routine documented in this encounter Care Teams Technology Adoption Manager Relationship Specialty Start Date End Date Loren Cortez APRN PCP - General Family Medicine 05/06/17 [address] [place] [address] documented as of this encounter
--- OUTSIDE RECORDS SUMMARY | 2022-05-08 01:05 | XMS_ITS | Encounter Summary ---
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, unspecified lymph node region Juan David Coleman MD [facility] Rad Ct Scan Procedures CT Chest Abdomen Pelvis w Contrast (Generic) [facility] HEMATOLOGY/[place] [address] [place] [address] Referral ID Status Reason Start Date Expiration Date Visits V isits Requested Authorized [id number] Closed Specialty 02/09/2018 03/26/2018 1 1 Service Requested Reason for Visit Diagnostic Test (Routine) - Closed Specialty Diagnoses / Procedures Referred By Contact Refer red To Contact Radiology Diagnoses Malignant melanoma of torso excluding breast 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, unspecified lymph node region Juan David Coleman MD [facility] Rad Ct Scan Procedures CT Chest Abdomen Pelvis w Contrast (Generic) [facility] DR Ahumada [facility] HEMATOLOGY/[place] [address] [place] [address] Referral ID Status Reason Start Date Expiration Date Visits V isits Requested Authorized [id number] Closed Specialty 02/09/2018 03/26/2018 1 1 Service Requested Encounter Details Date Type Department Care Team Description 02/17/[address] Scan [place] [facility] Juan David Coleman, Malignant melanoma of torso excluding breast; [facility] Malignant neoplasm metastatic to lymph n odes, unspecified lymph node region [address] [place] [address] HEMATOLOGY/ONCOL [phone] [place] [address] Social History Tobacco Use Types Packs/Day Years [...] Diagnosis Comme nts CT CHEST ABDOMEN Routine 02/17/2018 10:32 AM Malignant melanom a Results for this PELVIS W CONTRAST EDT of torso excluding proc edure are in (GENERIC) breast the results Malignant neoplasm section. metastatic to lymph nodes, unspecified lymph node region documented in this encounter Results CT Chest [...] lymph node region documented in this encounter Administered Medications Inactive Administered Medications - up to 3 most recent administrations Medication Order MAR Action Action Date Dose Rate Site iohexol (OMNIPAQUE) 350 mg/mL Given 02/17/2018 10:14 AM EDT 103 mLs solution 0-200 mL 0-200 mL, Intravenous, ONCE PRN, 1 dose, Starting on Lucy 02/17/18 at 1013, Until Lucy 02/17/18 at 1014, Per Protocol, Warning Vesicant/Irritant Medication , Radiology Contrast, Routine documented in this encounter Care Teams Shirt Hemmer Relationship Specialty Start Date End Date Loren Cortez APRN PCP - General Family Medicine 05/06/17 [address] [place] [address] documented as of this encounter
--- OUTSIDE RECORDS SUMMARY | 2022-05-08 01:05 | XMS_ITS | Encounter Summary ---
:1960 Author Organization [facility] [place] [address] Care Team Providers Name Role Phone Loren Cortez APRN Primary Care Provider [phone] Reason for Referral Diagnostic Test (Routine) - Closed Specialty Diagnoses / Procedures Referred By Contact Refer red To Contact Radiology Diagnoses Malignant melanoma, unspecified site [facility] Rad Nuclear Med Procedures NM Lymphoscintigraphy w Imaging Melanoma or Skin Cancer [facility] [place] [place]AL [place]GERY [place] [phone] Fax: Referral ID Status Reason Start Date Expiration Date Visits V isits Requested Authorized [id number] Closed Specialty 05/21/2017 05/21/2018 2 2 Service Requested Encounter Details Date Type Department Care Team Description 05/21/2017 Orders Only General Surgery at [facility] ignant melanoma, [facility] MD Gordy unspecified site [facility] [address] [place] GENERAL SURGERY [address] [place] [address] (Wo rk) Social History Tobacco Use Types Packs/Day Years Used Date Never Smoker Smokeless Tobacco: Never Used Alcohol Use Standard Drinks/Week Comments Yes 1 (1 standard drink = 0.6 oz pure alcoho l) Sex Assigned at Date Recorded Not on file documented as of this encounter Plan of Treatment Not on filedocumented as of this encounter Results NM Lymphoscintigraphy w Imaging Melanoma or Skin Cancer (06/10/2017 11:03 AM EDT) Anatomical Region Laterality Modality Nuclear Medicine Specimen (Source) Anatomical Location Collection Method / Collectio n Time Received Time / Laterality Volume Impressions 06/10/2017 11:43 AM EDT Drainage to lymph nodes in the left axilla, including a subpectoral lymph node and to the left supraclavicular region. I have personally reviewed the image(s) and the residents interpretation and agree with the findings, Marquis Pierson at 06/10/2017 11:43 AM Narrative 06/10/2017 11:43 AM EDT EXAMINATION: NM LYMPHOSCINTIGRAPHY W IMAGING MELANOMA OR SKIN CANCER CLINICAL HISTORY: PLEASE INJECT AND SCAN BACK MELANOMA ??FOR LYMPHATIC MAPPING TECHNIQUE: Approximately 60 minutes following intra dermal injection of a total of 1.7 mCi of technetium 99m filtered sulfur colloi d adjacent to the lesion site in the lower back, anterior and posterior proje ction images of the lower head and neck, chest, abdomen and pelvis were obtained. Additionally, SPECT CT from the lower head to the lower chest was obtained for localization of the sentinel lymph nodes. COMPARISON: None FINDINGS: Injection site is noted in the lower kvng k region. Multiple foci of increased tracer deposi tion are seen in the left axillary lymph nodes including one subpectoral lymph no de. Additional increased tracer deposition is seen left supraclavicular lymph nodes. No tracer deposition within the abdomen or pelvis. Procedure Note Marquis Pierson MD - 06/10/2017 EXAMINATION: NM LYMPHOSCINTIGRAPHY W YA GING MELANOMA OR SKIN CANCER CLINICAL HISTORY: PLEASE INJECT AND SCAN BACK MELANOMA FOR LYMPHATIC MAPPING TECHNIQUE: Approximately 60 minutes following intra dermal injection of a total of 1.7 mCi of technetium 99m filtered sulfur colloi d adjacent to the lesion site in the lower back, anterior and posterior proje ction images of the lower head and neck, chest, abdomen and pelvis were obtained. Additionally, SPECT CT from the lower head to the lower chest was obtained for localization of the sentinel lymph nodes. COMPARISON: None FINDINGS: Injection site is noted in the lower kvng k region. Multiple foci of increased tracer deposi tion are seen in the left axillary lymph nodes including one subpectoral lymph no de. Additional increased tracer deposition is seen left supraclavicular lymph nodes. No tracer deposition within the abdomen or pelvis. IMPRESSION Drainage to lymph nodes in the left axil la, including a subpectoral lymph node and to the left supraclavicular region. I have personally reviewed the image(s) and the residents interpretation and agree with the findings, Marquis Pierson at 06/10/2017 11:43 AM Syeda Kaminski MD IMG NM ORDERABLES documented in this encounter Visit Diagnoses Diagnosis Malignant melanoma, unspecified site Malignant melanoma, unspecified site documented in this encounter Care Teams Contract Post Office Clerk Relationship Specialty Start Date End Date Loren Cortez APRN PCP - General Family Medicine 05/06/17 [address] [place] [address] documented as of this encounter
--- OUTSIDE RECORDS SUMMARY | 2022-05-08 01:05 | XMS_ITS | Encounter Summary ---
:1960 Author Organization [facility] [place] [address] Care Team Providers Name Role Phone Loren Cortez APRN Primary Care Provider [phone] Reason for Visit Reason Comments Procedure Encounter Details Date Type Department Care Team Description 05/06/2017 Procedure visit Dermatology at [facility] Carline Franco Neoplasm of uncertain behavior of skin (Primary Dx); David Coleman MD Melanoma of back [address] [facility] [id number] [facility] [phone] [address] [place] [address] Social History Tobacco Use Types Packs/Day Years Used Date Never Smoker Tobacco Cessation: Counseling Given: No Sex Assigned at Date Recorded Not on file documented as of this encounter Last Filed Vital Signs Vital Sign Reading Time Taken Comments Blood Pressure - - Pulse - - Temperature - - Respiratory Rate 20 05/06/2017 1:31 PM EDT Oxygen Saturation - - Inhaled Oxygen Concentration - - Weight 88.5 kg (195 lb) 05/06/2017 1:31 PM EDT Height 167.6 cm (5' 6) 05/06/2017 1:31 PM EDT Body Mass Index 31.47 05/06/2017 1:31 PM EDT documented in this encounter Patient Instructions Patient InstructionsEugenia David LPN - 05/06/2017 1:30 PM EDT Section of Dermatology POST OPERATIVE INSTRUCTIONS Wash your hand before changing the dressing. The dressing on the site should remain in place and dry until Wednesday The dressing should then be removed gently After removing the dressing, daily wound care should be performed as follows: Clean the wound with warm water and pat dry Apply either Vaseline or Aquaphor Ointment Cover the wound with a new dressing such as Telfa and Tape, or a Band-Aid You will need the following for dressing changes: non-adherent dressings (Telfa), Vaseline in a tube and paper tape Do not use peroxide or Antibiotic cream or ointment on the wound For discomfort, you may take Tylenol or other non-aspirin pain medication. You may use an ice pack for discomfort, 15 minutes on and off for the next 48 hours If bleeding should occur, pressure should be applied constantly for 15 minutes on the dressing with the help of a towel, wash cloth, or piece of gauze. The sutures should be removed in 14 days. It is important that you avoid strenuous and/or vigorous activities, heavy lifting (More than 5-10 lbs), and bending for a period of 2 weeks If you have questions, please contact the office of Carline Franco MD during the day at [phone] Nurse: Joyce [phone] Eugenia After 5 PM and on weekends, please call the hospital number , and ask for the Gas Distribution And Emergency Clerk licensed tax consultant. documented in this encounter Progress Notes Carline Franco MD - 05/06/2017 1:30 PM EDT Dermatology Procedure note: Attending: Carline Franco MD Shine Worker: EUGENIA DAVID LPN Referring MD: Alicia Alcala MD ? Y/N? Are you taking any blood thinners?? ? N Pacemaker or defibrillator?? ? N Heart valves? ? N Joints? N Antibiotics prior to procedures?? ? N If yes: Time taken?? ? Allergy to local anesthetics? ? N ? Allergy to latex?? ? N ? BP 116/68 P- 76 Procedure: excisional biopsy of suspected melanoma I explained the suspected diagnosis to the patient and recommend an excision of the lesion for diagnosis. I explained all treatment options and risks of the procedure to the patient and obtained written consent. Potential complications include, but not limited to: scar, bleeding, infection, incompleteremoval, nerve damage, damage to surrounding structures, dehiscence and need for further procedures. ? A time out was performed. The patient was prepared and draped sterilely in the usual manner and anesthesia was administered by local infiltration. An fusiform excision was drawn around the lesion, and the margins were incised to the level of the subcutaneous fat. The tissue was removed with sharp and blunt dissection. The lateral margins of the resulting defect were undermined with sharp and blunt dissection and hemostasis was achieved with electrocautery. The deeper layers of the defect including subcutaneous fat were approximated to reduce tension. A layered wound closure was performed. The woundwas cleaned, dried, vaseline was applied and the wound covered with a pressure dressing. The patientwas given detailed verbal and written instructions on post-operative care. ? In the event of a suspected infection (e.g. pus formation, fever, redness), the patient knows to call the clinic or the on-call corporate safety coordinator over the weekend. ??? Name of Procedure? ? Excision with intermediate layered closure Location? ?? Left lower back Diagnosis? ?? melanoma Size (maximal) (cm)? ?? 1.6 x 1.0 cm Margins (cm)? 0.2 cm ? Size + Margins (cm)? ? 2.0 cm ? 1% lidocaine with epinephrine? 10 cc? Suture (adipose/dermis)? 3-0 Monocryl? Suture (epidermis)? 4-0 Prolene? Final wound length? 4.5 cm? Suture removal? 14 days? documented in this encounter Plan of Treatment Not on filedocumented as of this encounter Procedures Procedure Name Priority Date/Time Associated Diagnosis Comme nts SURGICAL PATHOLOGY Routine 05/06/2017 2:14 PM Res ults for this REPORT EDT procedure are i n the results section. SPECIMEN TO Routine 05/06/2017 2:14 PM Melanoma of back Resul ts for this PATHOLOGY EDT procedure are i n the results section. MOLECULAR GENETICS Routine 05/06/2017 1:26 PM Res ults for this REPORT EDT procedure are i n the results section. documented in this encounter Results Surgical Pathology Report (05/06/2017 2:14 PM EDT) Component Value Ref Test Analysis Performed At [facility] Method Time Signature Surgical [id number] ? Location: [facility] Pathology EDILBERTO Report The signing pathologist has (i) examined the relevant preparation(s) for the MEMORIAL specimen(s) and (ii) rendered or confirmed the diagnosis(es) . HOSPITAL LABORATORY . ?Surgic al Pathology DIAGNOSIS Skin, left lower back, excision: - Invasive melanoma (see table) Histologic Type: ?Superficial spreading Ulceration: ? Not identified Depth of Invasion: ?1.48 mm Balbir 's Level: ?III Regression: ? Not identified Vascular Invasion: ?Not identified Perineural Invasion: ?Not identified Microscopic Satellites: ?? Not identified Dermal mitoses per mm2: 6 Tumor infiltrating ??lymphocytes: ?Present, non-brisk Solar Elastosis: ?Not identified Associated Nevus: ? Not identified Margins: Peripheral Margins: ? Negative (see discussion) Deep Margin: ?Negative for melanoma Pathologic TNM Codes: ?? pT2a Electronically signed by: ??Rudy REDDY, Amador Mendoza Verified: ??05/11/2017 ?Dermatopathologist DISCUSSION Melanoma in situ extends approximately 1 .0 mm from the nearest lateral margin. CLINICAL INFORMATION Specimen Submitted: A - Skin, left lower back, excision (1) Clinical History: 1.6 x 1.0 dark brown/black p laque with bluegray fail at center, radial streaming and pseudopolyps at periphery left lower back Clinical Diagnosis: Melanoma, specimen tagged medial tip SPECIMEN PROCESSING A - ??Labeled/Fixative: Left lower back, formalin. Quantity/Size: ?Single, report eight 7 x 1.5 x 0.6 cm . Tissue Description: The ellipse of addison-white ski n with a central 1.5 x 1.1 cm irregular, asymmetrical, centrally nodular addison-red to red-b rown lesion. Orientation: A suture moran the medial ellipse tip and this is now designated as 12 o 'clock. Inking: The 12-3-6 o ' clock margin is marked black. The 6-9-12 o ??'clock margin is marked blue. Sectioning: ??The specimen i s serially sectioned from 12 to 6 o ?'clock and submitted with the 12 o 'clock tip in cassette 1; the 6 o ??'clock tip in cassette 2 and the remaining cross sections se quentially submitted from 12-6 o ?? ' clock in cassettes 3- 8. Sections/Processing: (T8) ??ejr Specimen (Source) Anatomical Collection Method Collection Time Re ceived Time Location / / Volume Laterality 05/06/2017 2:14 PM EDT Carline Franco MD PATHOLOGY/CYTOLOGY ORDERABLE S Performing Organization Address City/State/[place] [address] Specimen to Pathology (surgical or derm) (05/06/2017 2:14 PM EDT) Specimen Anatomical Collection Method Collection Time Receive d Time (Source) Location / / Volume Laterality AP Specimen 05/06/2017 2:14 PM 7 6:18 EDT PM EDT Narrative [facility] - 05/06/2017 6:18 PM EDT Specimen requisition ordered. ??Separate Pathology report to follow Resulting Agency Comment Spec In Lab Carline Franco MD PATHOLOGY/CYTOLOGY ORDERABLE S Performing Organization Address City/State/[facility] [place] [address] Molecular Genetics Report (05/06/2017 1:26 PM EDT) Component Value Ref Test Analysis Performed At [facility] Method Time Signature Molecular [id number] ? Location: [facility] The signing pathologist has (i) examined the relevant preparation(s) for the MEMORIAL specimen(s) and (ii) rendered or confirmed the diagnosis(es) . HOSPITAL LABORATORY . ?Molecu lar Genetics RESULTS Please refer to Surgical Pathology Report [id number] for final pathology diagnosis. INDICATION FOR STUDY: ?? Skin, left lower back, excisi on - Invasive melanoma SPECIMEN ANALYZED: ?? [id number] Solid Tumor Fusion Panel Analysis: ?? Examination of RNA extracted from formalin-fixed paraffin-embedded tumor tissue for gene fusion analysis. Results: ?? No Gene fusions were identified in the submitted sample. Interpretation: ?? After rev iew of the pathology report and slides, the specimen ( [id number]) was selected for fusion analysis using a panel of 53 cancer related genes. Therapeutic options related to the presence or absence of mutations should be carefully assessed. ??Av ailability of other therapeutic indications and clinical trials may be possible. Consider presenting at the [facility] Molecular Tumor Board for further interpretation and discussion by contacting ?? [email or web address] . Methods: ?? Solid Tumor Fusi on Panel ??- Hematoxylin and eosin (H ??&E) stained slides for each sample were review ed by an attending pathologist to determine the tumor area and estimate the perce nt of neoplastic cells present in the tissue. ??RNA was extracted from macro-dissec john FFPE tissue sections using the AllPrep DNA/RNA FFPE Kit. ??RNA was converted to cDNA, and sample quality was assessed using a qPCR assay, requiring a minimum cycle t hreshold (Ct) value of 29. ??Preparation of libraries was performed by a fully tr ained [facility] technologist using a clinically validated [employer] Solid Suzette or Panel assay protocol. ??A total of five Commercial Collections Driver Checkpoints (QC Checkpoints ) were established: (1) QC1: pre RNA extraction, (2) QC2: RNA quantification, (3) QC3 : RNA quality, (4) QC4: library quantification, and (5) QC5: post-sequencing metrics. Sequencing was performed on an Illumina MiSeq or MiSeqDX instrument using 150bp paired-end sequencing reads with a minimum of 3.0 million sequencing reads per sample. ??The minimum fusio n detection limit was 5%. ??Novel fusions were confirmed using a laboratory develope d procedure. ??Sequencing reads were aligned to the hg19 reference genome build, and analyzed using the [employer] Analysis ?[employer] Software. ??Variant were reviewed and curated u sing both peer-reviewed literature and publicly available databases. ??Sources are li sted below and in the references section of this report. http://www.mycancergenome.org https://ckb.vinay.org/gene/grid https://targetedcancercare.Smarp Oy.org/Hm-Hizrn-Kpeit.as px . RESULTS The 53 genes assessed by the Solid Tumor Fusion assay include: ? AKT3, ALK, ROIGHH48, KASIA, BRAF, BRD3, BRD4, EGFR , ERG, ESR1, ETV1, ETV4, ETV5, ETV6, EWSR1, FGFR1, FRFR2, FGFR3, FGR, INSR, MAML2, MA ST1, MAST2, MET, MSMB, MUSK, MYB, NOTCH1, NOTCH2, NRG1, NTRK1, NTRK2, NTRK3, NUMBL, NUTM1, PDGFRA, PDGFRB, PIK3CA, PKN1, PPARG, PRKCA, PRKCB, RAF1, RELA, RET, ROS 1, RSPO2, RSPO3, TERT, TFE3, TFEB, THADA, and TMPRSS2. While DNA testing is very ac curate, rare diagnostic errors due to various pre- and post-analytical variables d o occur. This test was developed and its performance characteristics determined by the [facility] ? (CGAT) Laboratory at [facility]. It has not been cleared or approved by the FDA. The laboratory is regulated under CLIA as qualified to perform high-complexity testing. This test is used for clinical purpos es. It should not be regarded as investigational or for research. Assay Limitations : (1) Muta tions outside the target region and below the limit of detection will not be detected. References: ?1. ??Nusrat Kaye, Froy Malik. The impact of translocations and gene ? fusions on cancer causation. Nature Reviews Cancer 2007;7:233-245. ?2. ??Froy Malik, Prashant Johnson,Jose Coleman, Eran Malik. The emerging complexity of ? gene fusions in cancer. Nature Reviews Cancer 2015 ;15:371-381. Reviewed by: Petra Carvajal, PhD, [facility]-Shine Worker Dire tor ?08/03/17 16:57 Reviewed by: Reji dang, PhD, [facility], Director-[facility] ([facility], 08/04/17 10:29) Electronically signed by: ??Gulshan Oro, Reji De Verified: ??08/04/2017 ?Director, Molecular Pathology Performed at: ??[facility], [address] [place] [address], [address] ?Molecu lar Genetics RESULTS Please refer to Surgical Pathology Report 04 for final pathology diagnosis. INDICATION FOR STUDY: ?? Skin, left lower back, excisi on - Invasive melanoma SPECIMEN ANALYZED: ?? A6 Analysis: ??Examination of D NA extracted from formalin-fixed paraffin-embedded tumor tissue for somatic mutation analysis. Results: ??The following gen e variants were identified in the submitted tissue: CLINICALLY ACTIONABLE VARIANTS: BRAF: ??MUTATION c.1799T >A p.V600E Exon 15 c-KIT: ??NEGATIVE CTNNB1: ??NEGATIVE GNAQ: ??NEGATIVE . RESULTS NRAS: ??NEGATIVE OTHER DETECTED VARIANTS: N/A Interpretation: ?? After rev iew of the pathology report and slides, the specimen ( A6) was jade ected for mutation analysis from a panel of 50 genes. The results of this test in dicate that tumor cells comprising 25.0% of the tissue specimen analyzed were norm al for hotspots in the c-KIT, CTNNB1, GNAQ, NRAS, and 45 other genes. ??A mutation w as detected in the BRAF gene (V600E) which results in an amino acid substitution at position 600 from valine (V) to a glutamic acid (E). The V600E mutation suggests jose ramon t this patient may benefit from select BRAF inhibitors. This mutation occurs within the activation segment of the kinase domain. Mutant BRAF proteins have increase d kinase activity. ??Therapeutic options related to the presence or absence of muta tions should be carefully assessed. Availability of other therapeutic indications and clinical trials may be possible . These results may indicate clinical trial lorie mixon; consider presenting at the [facility] Molecular Tumor Board for further interpreta tion and discussion by contacting ?? [email or web address] ??. For additional information on clinically actionable variants, please visit the following websites: http://www.mycancergenome.org/content/disease/melanoma http://www.nccn.org/professionals/physician_gls/f_guidelines .asp Methods: ??Genomic DNA was e xtracted from formalin-fixed paraffin-embedded tumor tissue. DNA sequencing was performed using the 50-gene Cancer Hotspot Panel (BoxTone) for each gene repo rted. ??Sequences were aligned to the hg19 (GRCh37) reference genome. ??This pa edmund is designed to examine previously described and recurring somatic mutations in human tumors. ? NGS sequencing analysis of these genes was further confirmed by other assays during validation in our CLIA-certified laboratory. ? Normal (no n-tumor) tissue from this patient has not been tested, therefore, the possibility of any detected mutations being a germline mutation cannot be ruled out. The genes assessed by the [facility]er Hotspot Panel v2 include: ABL1, AKT1, ALK, APC, DICKSON, BRAF, CDH1, CDKN2A, CSF1R, CTNNB1, EGFR, ERBB2, ERBB4, EZH2, FBXW7, FGFR1, FGFR2, FGFR3, FLT3, GNA11, GNAQ, G HARDEEP, HNF1A, HRAS, IDH1, IDH2, JAK2, JAK3, KDR, KIT, KRAS, MET, MLH1, MPL, NOTCH1, NPM 1, NRAS, PDGFRA, PIK3CA, PTEN, PTPN11, RB1, RET, SMAD4, SMARCB1, SMO, SRC, STK11, TP53, and VHL. While DNA testing is very ac curate, rare diagnostic errors due to various pre- and post-analytical variables d o occur. This test was developed and its performance characteristics determined by the [facility] ? (CGAT) Laboratory at [facility]. It has not been cleared or approved by the FDA. The laboratory is regulated under CLIA as qualified to perform high-complexity testing. This test is used for clinical purpos es. It should not be regarded as investigational or for research. References : ??orlando Moreno. J Mol Diagn. 2012Dec 16(2):234-247; Yaz Moreira et al. J Mol Diagn 2012Dec 16(2):171-176; Champ FUCHS et al. J Mol Diagn 2012Jun 18(5):607-622; Gulshan GJ, et al. Clin Chem Lab Med Dec 2 013;13:1-8. . RESULTS Reviewed by: Petra Carvajal, PhD, CGAT-Shine Worker Direc tor ?07/12/17 09:09 Electronically signed by: ??Valerio REDDY, Reji Verified: ??07/12/2017 ?Pathologist Specimen (Source) Anatomical Collection Method Collection Time Re ceived Time Location / / Volume Laterality 05/06/2017 1:26 PM EDT Carline Franco MD PATHOLOGY/CYTOLOGY ORDERABLE S Performing Organization Address City/State/[place] [address] documented in this encounter Visit Diagnoses Diagnosis Neoplasm of uncertain behavior of skin - Primary Melanoma of back Malignant melanoma of skin of trunk, exc ept scrotum documented in this encounter Care Teams Mortgage Lender Relationship Specialty Start Date End Date Loren Cortez APRN PCP - General Family Medicine 05/06/17 [address] [place] [address] documented as of this encounter
--- OUTSIDE RECORDS SUMMARY | 2022-05-08 01:05 | XMS_ITS | Encounter Summary ---
:1960 [place] [address] Care Team Providers Name Role Phone Loren Cortez SCREENER OPERATOR Primary Care Provider [phone] Reason for Visit Auth/Cert Specialty Diagnoses [...] Expiration Date Visits Requ ested Visits Authorized [id number] 1 1 Encounter Details Date Type Department Care Team Description 06/10/2017 Anesthesia Event Main Operating Room Ofelia Gonzalez MD [facility] DR [place] [address] [facility] Luciana Payton MD [facility] [place] [address] [facility] [place] [address] Anesthesia Record Procedure Summary Procedure Name Responsible Anesthesia Start Anesthesia Stop Time Anesthesiologist Time EXC MALIGNANT Ofelia Palmer MD 06/10/17 1507 06/10/17 181 5 LESION, MINGO 3.1 TO 4.0CM, TRUNK (WRVU 3.17) (N/A Trunk) Events Date Time Event Comment 06/10/2017 1507 1507 AN Verify 1507 Start 1510 An Start Data 1515 An Induction 1525 An Intubation 1529 Anesthesia Ready 1554 Procedure Start 1600 Handoff Intra-procedure anesthesia care was transferred afte r review of the patient's history, current anesthetic/surgical status and plan, accord ing to the ANES Provider Handoff Checklis t. 1654 Handoff Intra-procedure anesthesia care was transferred afte r review of the patient's history, current anesthetic/surgical status and plan, accord ing to the ANES Provider Handoff Checklis t. 1803 Extubation/LMA Out Patient extub ated with positive pressure to 6L simple facema sk. Patients RR, TV, and rhythm consisten t with extubation criteria. 180 an stop data 181 Recovery or ICU Handoff Patient care was transferred to the destination unit staff after review of the patient's medica l history, current anesthetic/surgi jordyn status and plan, according to the Provider Handoff Checklist. 181 Stop Name Total Midazolam 2 mg fentaNYL 150 mcg IV Lidocaine 40 mg Propofol 170 mg Rocuronium 30 mg PHENYLephrine 240 mcg ePHEDrine 10 mg Dexamethasone 8 mg ceFAZolin (ANCEF) 2g in dextrose 5% 100 mL 2 g Lidocaine 4% LTA 4 mL lactated Ringers infusion 1,000 mL 900 mL Agents Name O2 Air N2O Sevoflurane (et) Blood No blood administrations on file. Lines, Drains, and Airways Type Details Placement Removal Incision 06/10/17; 1553; back 06/10/17 1553 by Peri Duran RN Incision 06/10/17; 1704; axilla 06/10/17 1704 by Peri Duran, RN ETT Mask Ventilation: Adjunct 06/10/17 1525 by Gran, 06/10/17 1803 by (2); ETT Type: Cuffed; ETT MD Mukund Iverson Grant D, CRNA Size: 7 mm; Mac Blade: 3; Notes: Asleep, Pre-O2, Stylette; Attempts: 2 (once for LTA); Laryngoscopy Grade: 1; ETT Placement Verified By: Auscultation, Capnometry, Visual; Secured at Teeth: 22 cm; Inserted by: heidi documented in this encounter Social History Tobacco Use Types Packs/Day Years Used Date Never Smoker Smokeless Tobacco: Never Used Alcohol Use Standard Drinks/Week Comments Yes 1 (1 standard drink = 0.6 oz pure alcoho l) Sex Assigned at Date Recorded Not on file documented as of this encounter OR Notes Anesthesia Postprocedure Evaluation - Ofelia Palmer MD - 06/15/2017 8:21 AM EDT [facility] Department of Anesthesiology Post-procedure Note Patient: Rosa Shah Procedure Summary Date Anesthesia Start Anesthesia Stop Room / Location 06/10/17 1507 1815 [facility] OR 27 / [facility] Procedure Diagnosis Surgeon Responsible Provider EXC MALIGNANT LESION, MINGO 3.1 TO 4.0CM, TRUNK (WRVU 3.17) (N/A Trunk); BIOPSY OR EXCISION OF LYMPH NODE(S), OPEN, DEEP AXILLARY NODE(S) (WRVU 6.43) (Left Axilla); INTRAOPERATIVE ID (MAPPING) SENTINEL LYMPH NODE,INCLUDES INJECTION (WRVU 2.5) (N/A ); MODIFIER SENTINEL NODE EXCISION (N/A ); ADJACENT TISSUE TRANSFER OR REARRANGEMENT; 30.1 TO 60.0 SQ CM, BACK (WRVU 12.65) (Left Back) (BACK MELANOMA) Syeda Nair MD Peters, Julia C, MD All Anesthesia Providers: Anesthesiologist: Ramirez Sloan MD; Ofelia Palmer MD MEASUREMENT AND VERIFICATION ENGINEER: Sally Mulligan CRNA; Mike Zamorano CRNA Firearms Instructor: Luciana Payton MD Most Recent Vitals: 06/10/171999 BP: Pulse: Temp: SpO2: 94% Pain Patient Location: PACU/[facility] Level of Consciousness: Awake and Alert Pain Management: Satisfactory Analgesia PONV: None Cardiovascular Status: At Baseline and Hemodynamically Stable Respiratory Status: At Baseline and Room Air Postoperative Fluid Status: Intravascular EUvolemia Possible Anesthetic Complications: NONE apparent at time of evaluation Final Primary Anesthesia Type: General (The anesthetic type performed was the same as planned.) Comments: Ofelia Palmer MD 141/77 68 100% This is a late entry note. Pt was seen and evaluated in the recovery area after the procedure Anesthesia Preprocedure Evaluation - Ramirez Sloan MD - 06/09/2017 9:29 PM EDT Pre-Anesthesia Evaluation for: Rosa Shah a 56 y.o. female. Procedure(s): EXC MALIGNANT LESION, MINGO 3.1 TO 4.0CM, TRUNK (WRVU 3.17) BIOPSY OR EXCISION OF LYMPH NODE(S), OPEN, DEEP AXILLARY NODE(S) (WRVU 6.43) BIOPSY OR EXCISION OF LYMPH NODE(S), OPEN, GROIN (WRVU 3.79) INTRAOPERATIVE ID (MAPPING) SENTINEL LYMPH NODE,INCLUDES INJECTION (WRVU 2.5) MODIFIER SENTINEL NODE EXCISION Patient Active Problem List Diagnosis ??? Melanoma of back ??? Neoplasm of uncertain behavior Past Medical History: Diagnosis Date ??? Melanoma of back 05/06/2017 Past Surgical History: Procedure Laterality Date ??? LEG SURGERY ??? ORTHOPEDIC SURGERY Age 3 - legs straightened - bilaterally ??? TONSILLECTOMY Social History Substance Use Topics ??? Smoking status: Never Smoker ??? Smokeless tobacco: Never Used ??? Alcohol use 0.6 oz/week 1 Glasses of wine per week History Drug Use Not on file No Known Allergies Medications: MAR and/or home medications have been reviewed. Physical Exam: There were no vitals filed for this visit. There is no height or weight on file to calculate BMI. Airway Assessment: Mallampati: I TM distance: <3 FB Neck ROM: full Cardiovascular Assessment: cardiovascular exam normal Pulmonary Assessment: pulmonary exam normal Dental Assessment: - normal exam Misc Assessment: IV access: Peripheral line Anesthesia Plan: ASA 2 general, with a(n) intravenous induction Rosa Shah is a 56 y.o. 89.9kg female non-smoker presenting for Procedure(s): EXC MALIGNANT LESION, MINGO 3.1 TO 4.0CM, TRUNK (WRVU 3.17) BIOPSY OR EXCISION OF LYMPH NODE(S), OPEN, DEEP AXILLARY NODE(S) (WRVU 6.43) BIOPSY OR EXCISION OF LYMPH NODE(S), OPEN, GROIN (WRVU 3.79) INTRAOPERATIVE ID (MAPPING) SENTINEL LYMPH NODE,INCLUDES INJECTION (WRVU 2.5) MODIFIER SENTINEL NODE EXCISION with Dr. Nair for a malignant back melanoma. Patient's documented history was negative for seizures, CVA, cardiac disease, lung dx, hepatic/renaldisease or coagulopathy. Reports occasional GERD, well controlled. Denies AARON. There is no evidence of any recent URI symptoms, fevers/chills, or other signs of infection. Has been afebrile last 24 hours. NPO Status: Reviewed and appropriate Meds: reviewd, none on file Allergies: No Known Allergies Anesth hx: none on file EKG: none on file Labs: No results for input(s): WBC, HGB, HCT, PLATELET in the last 7068 hours. No results for input(s): NA, K, CL, CO2, BUN, CREATININE in the last 7068 hours. No results for input(s): AST, ALT, ALKPHOS, BILITOT, BILIDIR in the last 7068 hours. No results for input(s): PT, INR, PTT in the last 168 hours. Plan for GA with ETT; standard ASA monitoring. Adequate IV access. The patient was informed of the risks, benefits and alternatives of anesthesia. These risks included, but were not limited to, post-operative nausea and/or vomiting, pain, sore throat, dental/lip trauma, and other rare but serious complications such as major organ damage, awareness, severe allergic reactions, position-related nerve injuries, and need blood transfusions. All questions sought and answered. Consent was signed and placed in chart. Region - Other Informed Consent: Anesthetic plan and risks discussed with patient. Use of blood products discussed with patient who consented to blood products. Plan discussed with attending and resident. PAT Staff Note documented in this encounter Plan of Treatment Not on filedocumented as of this encounter Visit Diagnoses Not on filedocumented in this encounter Administered Medications Inactive Administered Medications - up to 3 most recent administrations Medication Order MAR Action Action Date Dose Rate Site ceFAZolin (ANCEF) 2g in dextrose 5% Given 06/10/2017 3:29 PM EDT 2 g 100 mL 2 g, Intravenous, EVERY 3 HOURS, 1 dose, First dose on Lucy 06/10/17 at 1345, Administer over 30 Minutes, Intra-Operative (Intra-Procedure), Indication for (Active or Suspected): Prophylaxis dexamethasone (DECADRON) injection Given 06/10/2017 3:58 PM EDT 8 mg PRN, Starting on Lucy 06/10/17 at 1558, Until Wed06/15/17 at 0759, Anesthesia Intra-op, Routine ePHEDrine 5 mg/mL multi-dose injection Given 06/10/2017 4:41 PM EDT 5 mg PRN, Starting on Lucy 06/10/17 at 1626, Until Tu06/15/17 at 0759, Anesthesia Intra-op, Routine Given 06/10/2017 4:26 PM EDT 5 mg fentaNYL 50 mcg/mL multi-dose injection Given 06/10/2017 4:56 PM EDT 50 mcg PRN, Starting on Lucy 06/10/17 at 1515, Until Wed06/15/17 at 0759, Pain, Anesthesia Intra-op, Routine Given 06/10/2017 4:17 PM EDT 50 mcg Given 06/10/2017 3:15 PM EDT 50 mcg lactated Ringers infusion 1,000 mL New Bag 06/10/2017 2:56 PM EDT 1,000 mL, at 100 mL/hr, Intravenous, CONTINUOUS, Starting on Lucy 06/10/17 at 1345, Until Lucy 06/10/17 at 1910, Day of Surgery (Day of Procedure) lidocaine (PF) (XYLOCAINE) 100 mg/5 mL (2 %) Given 3:15 PM EDT 40 mg injection PRN, Starting on Lucy 06/10/17 at 1515, Until Wed06/15/17 at 0759, Anesthesia Intra-op, Routine lidocaine (XYLOCAINE) 4 % external solut ion Given 06/10/2017 3:37 PM EDT 4 mLs PRN, Starting on Lucy 06/10/17 at 1537, Until Wed06/15/17 at 0759, Anesthesia Intra-op midazolam (PF) (VERSED) 1 mg/mL multi-dose Given 06/10/2017 3:07 PM EDT 2 mg injection PRN, Starting on Lucy 06/10/17 at 1507, Until 06/15/17 at 0759, Sleep, Anesthesia Intra-op, Routine PHENYLephrine HCl in NS (PF) (RODNEY-SYNEPHRINE) Given 4:21 PM EDT 80 mcg 0.8 mg/10 mL (80 mcg/mL) multi-dose injection Syrg PRN, Starting on Lucy 06/10/17 at 1554, Until 06/15/17 at 0759, Anesthesia Intra-op, Routine Given 06/10/2017 4:03 PM EDT 80 mcg Given 06/10/2017 3:54 PM EDT 80 mcg propofol (DIPRIVAN) 10 mg/mL bolus injection Given 04/2017 3:15 PM EDT 170 mg (Anesthesia) PRN, Starting on Lucy 06/10/17 at 1515, Until 06/15/17 at 0759, Anesthesia Intra-op rocuronium (ZEMURON) multi-dose injectio n Given 06/10/2017 3:15 PM EDT 30 mg PRN, Starting on Lucy 06/10/17 at 1515, Until 06/15/17 at 0759, Anesthesia Intra-op, Routine documented in this encounter Care Teams Paid Search Manager Relationship Specialty Start Date End Date Loren Cortez APRN PCP - General Family Medicine 05/06/17 [address] [place] [address] documented as of this encounter
--- OUTSIDE RECORDS SUMMARY | 2022-05-08 01:05 | XMS_ITS | Encounter Summary ---
:1960 Author Organization [facility] Address [address] [place] [address] Care Team Providers Name Role Phone Loren Cortez APRN Primary Care Provider [phone] Reason for Visit Reason Comments Phlebitis superficial thrombophlebitis lle pt states sensitive to the touch red inflamed Consultation (Routine) - Specialty Diagnoses / Procedures Referred By Contact Refer red To Contact Vascular Surgery Diagnoses Superficial thrombophlebitis Loren Cortez [facility] Vascular Surg THERAPY TEACHER [address]v [address] [place] [address] [place] [address] Phone: Referral ID Status Reason Start Date Expiration Date Visits V isits Requested Authorized [id number] Consult, 01/30/2018 01/30/2019 2 2 [facility] Encounter Details Date Type Department Care Team Description 03/07/2018 [facility]ERAPY TEACHER superficial vein of [facility] t lower extremity Drive [address] [place] [address] [place] [address] [phone] Social History Tobacco Use Types Packs/Day Years Used Date Never Smoker Smokeless Tobacco: Never Used Alcohol Use Standard Drinks/Week Comments Yes 1 (1 standard drink = 0.6 oz pure alcoho l) Sex Assigned at Date Recorded Not on file documented as of this encounter Last Filed Vital Signs Vital Sign Reading Time Taken Comments Blood Pressure 131/96 03/07/2018 2:29 PM EDT Pulse 91 03/07/2018 2:29 PM EDT Temperature - - Respiratory Rate 18 03/07/2018 2:29 PM EDT Oxygen Saturation - - Inhaled Oxygen Concentration - - Weight 90.7 kg (200 lb) 03/07/2018 2:29 PM EDT Height 167.6 cm (5' 6) 03/07/2018 2:29 PM EDT Body Mass Index 32.28 03/07/2018 2:29 PM EDT documented in this encounter Progress Notes Yocasta Woo, THERAPY TEACHER - 03/07/2018 2:30 PM EDT This is a new patient to the practice who is being evaluated for left LE phlebitis and was referred by Loren Cortez APRN. 57 yo female with melanoma excision on back. C/o spider veins cluster left lateral calf for some time then this became hot, red and tender. Venous duplex locally negative for DVT. Today not painful to touch but continues to be hard and discolored. Denies chest pain, h/o DVT, PE, SOB, claudication. 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 She does not wear compression or take ASA. PMHx: Past Medical History: Diagnosis Date ??? Melanoma 05/06/2017 left lower back ??? Melanoma of back 05/06/2017 ??? Phlebitis of superficial vein of left lower extremity 03/07/2018 PSxHx: Past Surgical History: Procedure Laterality Date ??? [...] at [facility] OR ??? TONSILLECTOMY Social Hx: Social History Substance Use Topics ??? Smoking status: Never Smoker ??? Smokeless tobacco: Never Used ??? Alcohol use 0.6 oz/week 1 Glasses of wine per week Medications: Medications 03/07/18 1443 Not on File Allergies: No Known Allergies Physical Exam: Vitals: Most Recent Vitals: 03/07/18 1429 BP: (!) 131/96 Pulse: 91 Resp: 18 PainSc: 0 - No pain General: NAD, appears well Neuro: Alert and oriented, motor sensory grossly intact Lungs: CTA Heart: RRR Abd: Soft, NT, ND, no palpable pulsatile masses Extremity - [place], warm, no ulceration, brisk capillary refill, mild left ankle edema left lateral calf with cluster of VV and firm non tender area Vascular: R L Carotid 2/2 bruit (n) 2/2 bruit (n) Radial 2/2 2/2 Femoral 2/2 2/2 Popliteal 2/2 2/2 DP 2/2 2/2 PT 2/2 2/2 Assessment/Plan: 57 yo female with melanoma excision on back. Recent resolving left LE superficial thrombophlebitis. Recommended medical management with ASA daily. Knee high compression stockings, antiinflammatories for pain Warm moist heat for comfort. Avoid standing or sitting in one spot for extended periods of time. Thanks you for this consult. RTC PRN documented in this encounter Plan of Treatment Not on filedocumented as of this encounter Visit Diagnoses Diagnosis Phlebitis of superficial vein of left lo wer extremity documented in this encounter Care Teams Environmental Health And Safety Manager Relationship Specialty Start Date End Date Loren Cortez APRN PCP - General Family Medicine 05/06/17 [address] [place] [address] documented as of this encounter
--- OUTSIDE RECORDS SUMMARY | 2022-05-08 01:05 | XMS_ITS | Encounter Summary ---
:1960 Author Organization [place] [address] Care Team Providers Name Role Phone Loren Cortez APRN Primary Care Provider [phone] Reason for Referral Diagnostic Test (Routine) - Closed Specialty Diagnoses / Procedures Referred By Contact Refer red To Contact Radiology Diagnoses Malignant melanoma, unspecified site Syeda Nair V [facility] Rad Nuclear Med Procedures NM Lymphoscintigraphy w Imaging Melanoma or Skin Cancer [facility] GENERAL SURGERY [place] [phone] Fax: Referral ID Status Reason Start Date Expiration Date Visits V isits Requested Authorized [id number] Closed Specialty 05/21/2017 05/21/2018 2 2 Service Requested Reason for Visit Auth/Cert Specialty Diagnoses / [...] Expiration Date Visits Requ ested Visits Authorized [id number] 1 1 Encounter Details Date Type Department Care Team Description 06/10/2017 Hospital Encounter Nuclear Medicine at [facility] Malignant melanoma, Marylin Kaminski MD unspecified site [facility] [address] [place]GERY [address] [place] [address] [phone] Social History Tobacco Use Types Packs/Day Years Used Date Never Smoker Smokeless Tobacco: Never Used Alcohol Use Standard Drinks/Week Comments Yes 1 (1 standard drink = 0.6 oz pure alcoho l) Sex Assigned at Date Recorded Not on file documented as of this encounter Plan of Treatment Not on filedocumented as of this encounter Procedures Procedure Name Priority Date/Time Associated Comments Diagnosis NM LYMPHOSCINTIGRAPHY WITH Routine 06/10/2017 11:03 Malignant Results for this IMAGING MELANOMA OR SKIN AM EDT melanoma, pro cedure are in CANCER unspecified site the results section. documented in this encounter Results NM Lymphoscintigraphy w Imaging [...] at 06/10/2017 11:43 AM Syeda Kaminski [place] [facility] documented in this encounter Visit Diagnoses Diagnosis Malignant melanoma, unspecified site documented in this encounter Administered Medications Inactive Administered Medications - up to 3 most recent administrations Medication Order MAR Action Action Date Dose Rate Site technetium (Tc-99m) sestamibi Given 06/10/2017 9:00 AM EDT 1.7 m Ci injection 1.7 mCi 1.7 mCi, Intravenous, ONCE PRN, 1 dose, Starting on Lucy 06/10/17 at 0900, Until Lucy 06/10/17 at 0900, Per Protocol, INJ: SUBCU., Routine documented in this encounter Care Teams Steam Finisher Relationship Specialty Start Date End Date Loren Cortez APRN PCP - General Family Medicine 05/06/17 [address] [place] [address] documented as of this encounter
--- OUTSIDE RECORDS SUMMARY | 2022-05-08 01:05 | XMS_ITS | Encounter Summary ---
:1960 Author Organization [facility] [place] [address] Care Team Providers Name Role Phone Loren Cortez APRN Primary Care Provider Encounter Details Date Type Department Care Team Description 06/10/2018 Hospital Encounter [place] [facility] [place] Abbott Metastatic melanoma [facility] MD [place] [address] GENERAL SURGERY [phone] [place], [place] [address] Social History Tobacco Use Types [...] Diagnosis Comme nts US EXTREMITY NON Routine 06/10/2018 8:49 AM Metastatic melanom a Results for this VASCULAR LIMITED EDT to [...] am) Report PATIENT INFO: ID #: ? [id number] ?: ??[birth year] (57 yrs) Name: ? ANNETTE OSORIO ?Visit Date: 06/10/2018 08:50 am PERFORMED BY: Performed By: ? Lakisha Solomon RDMS Attending: ?Ivory REDDY, Tony Zhou Referred By: ?[facility] Location: ? [place] SERVICE(S) PROVIDED: ??UEXTLMTL - Extremity Limited Non Vasc ular - Left ?[id number] ??- [id number] INDICATIONS: ??stage III melanoma. LEFT axillary Ln [...] 09:02 am) Report PATIENT INFO: ID #: [id number] : 60 (57 y rs) Name: ANNETTE OSORIO Visit Date: 06/10 08:50 am PERFORMED BY: Performed By: Celena Solomon RDMS Attending: Anish Dodson MD Referred By: MARIA ABBOTT Location: [place] SERVICE(S) PROVIDED: UEXTLMTL - Extremity Limited Non Vascul ar - Left [id number] - [id number] INDICATIONS: stage III melanoma. LEFT axillary Ln [...] unspecified documented in this encounter Care Teams Presidential Helicopter Crew Chief Relationship Specialty Start Date End Date Loren Cortez APRN PCP - General Family Medicine 05/06/17 [address] [place] [address] documented as of this encounter
--- OUTSIDE RECORDS SUMMARY | 2022-05-08 01:05 | XMS_ITS | Encounter Summary ---
:1960 Author Organization [facility] [place] [address] Care Team Providers Name Role Phone Loren Cortez APRN Primary Care Provider [phone] Encounter Details Date Type Department Care Team Description 07/09/2017 Office Visit General Surgery at Maria Abbott of back; [facility] MD Gordy 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 [facility] JARED Dugan [facility] SUR[facility]ERY [address] [place] [address] [phone] (Wo rk) Social History Tobacco Use Types Packs/Day Years Used Date Never Smoker Smokeless Tobacco: Never Used Alcohol Use Standard Drinks/Week Comments Yes 1 (1 standard drink = 0.6 oz pure alcoho l) Sex Assigned at Date Recorded Not on file documented as of this encounter Last Filed Vital Signs Vital Sign Reading Time Taken Comments Blood Pressure 133/64 07/09/2017 2:05 PM EDT Pulse 64 07/09/2017 2:05 PM EDT Temperature 36.4 ??C (97.6 ??F) 07/09/2017 2:05 PM EDT Respiratory Rate 12 07/09/2017 2:05 PM EDT Oxygen Saturation 100% 07/09/2017 2:05 PM EDT Inhaled Oxygen Concentration - - Weight 90 kg (198 lb 8 oz) 07/09/2017 2:05 PM EDT Height - - Body Mass Index 32.04 05/06/2017 1:31 PM EDT documented in this encounter Progress Notes Maria Abbott MD - 07/09/2017 2:30 PM EDT Surgical Oncology Melanoma Post Op Visit Dx: left back melanoma Date of [...] axillary sentinel node #1: - Rare enlarged MelanA/VCP38-ebfcheiq intraparenchymal cells suspicious for ??micrometastatic melanoma C. Left axillary sentinel node #2: - One lymph node negative for melanoma (0/1) D. Left axillary sentinel node #3: - One lymph node negative for melanoma (0/1) History of Present Illness: .Annette Osorio has done wells/p surgery. minimal discomfort. No fevers or chills. No drainage. No current outpatient prescriptions on file prior to visit. No current facility-administered medications on file prior to visit. Allergies as of 07/09/2017 ??? (No Known Allergies) PE: Appears well. She has a well-healed incision on the left back. No erythema. No swelling. Left axilla well well healed incision. No seroma. Assessment: Annette Osorio is a 56 y.o. year old female with no significant PMH with malignant melanoma superficial spreading type of the left mid-back, 1.48 mm thickness, non-identifed ulceration, 6 mitoses per mm2 s/p WLE and SLNB which mapped to left axilla with 1+ SLN ([id number] per AJCC TNM staging, 7th edition). Path stage IIIA. She needs staging scans and meeting with Dr Coleman to discuss systemic therapy options. We also discussed lymph node dissection vs lymph node surveillance with US and exams. Given her low volume of disease in only one sentinel lymph node, I think she is a perfect candidate to follow the results of MSLT-II which showed no difference in survival in patients similar stage as Annette who underwent surveillance. We discussed the risk of recurrence and the importance of skin exams. I educated the patient on selflymph node basin exams as well. Plan: - We will see her in three months with surveillance axillary US - Full skin checks by dermatology Q3-6mths - Medical oncology consultation - Dr Coleman - PET CT and Brain MRI ordered. Scheduling needs to be done Maria Abbott MD Surgical Oncology 07/22/2017 documented in this encounter Plan of Treatment [...] am) LEFT PATIENT INFO: ID #: ? [id number] ?: ??[birth year] (57 yrs) Name: ? ANNETTE OSORIO ?Visit Date: 01/12/2018 10:28 am PERFORMED BY: Performed By: ? Hector Molina RDMS Attending: ?Kell Lema MD Referred By: ?[facility] Location: ? [place] SERVICE(S) PROVIDED: ??UEXTLMTL - Extremity Limited Non Vasc ular - Left ?[id number] ??- [id number] INDICATIONS: ??metastatic melanoma in left axillary LN. [...] 01/12/2018 Ultrasound Axilla Report - (Signed Tash l 01/12/2018 10:42 am) LEFT PATIENT INFO: ID #: [id number] : 60 (57 y rs) Name: ANNETTE OSORIO Visit Date: 01/12 10:28 am PERFORMED BY: Performed By: Hector Molina RDMS Attending: Kell Lema MD Referred By: MARIAAUSTEN ABBOTT Location: [place] SERVICE(S) PROVIDED: UEXTLMTL - Extremity Limited Non Vascul ar - Left [id number] - [id number] INDICATIONS: metastatic melanoma in left axillary LN [...] documented in this encounter Visit Diagnoses Diagnosis Melanoma of back Malignant melanoma of skin of trunk, exc ept scrotum 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 Secondary and unspecified malignant neop lasm of lymph nodes, site unspecified 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 Secondary and unspecified malignant neop lasm of lymph nodes, site unspecified documented in this encounter Care Teams Tent Assembler Relationship Specialty Start Date End Date Loren Cortez APRN PCP - General Family Medicine 05/06/17 [address] [place] [address] documented as of this encounter
--- OUTSIDE RECORDS SUMMARY | 2022-05-08 01:05 | XMS_ITS | Encounter Summary ---
:1960 Author Organization [place] [address] Care Team Providers Name Role Phone DelbertLoren bob MARINE Primary Care Provider [phone] Reason for Visit Reason Comments Follow-up Encounter Details Date Type Department Care Team Description 02/17/2018 Office Visit Hematology and Juan David Coleman MD [facility] DR HEMATOLOGY/[place] [address] Malignant melanoma of torso excluding br east (Primary Dx); Oncology at [facility] Isidra Pedro APRN [facility] DR HEMATOLOGY-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 [facility] Cynthia Salgado MD [facility] DR HEMATOLOGY/[place] [address] [place] [address] Social History Tobacco Use Types Packs/Day Years Used Date Never Smoker Smokeless Tobacco: Never Used Alcohol Use Standard Drinks/Week Comments Yes 1 (1 standard drink = 0.6 oz pure alcoho l) Sex Assigned at Date Recorded Not on file documented as of this encounter Last Filed Vital Signs Vital Sign Reading Time Taken Comments Blood Pressure 135/76 02/17/2018 11:22 AM EDT Pulse 67 02/17/2018 11:22 AM EDT Temperature 36.6 ??C (97.9 ??F) 02/17/2018 11:22 AM EDT Respiratory Rate 15 02/17/2018 11:22 AM EDT Oxygen Saturation 100% 02/17/2018 11:22 AM EDT Inhaled Oxygen Concentration - - Weight 91.2 kg (201 lb) 02/17/2018 11:22 AM EDT Height 167.6 cm (5' 6) 02/17/2018 11:22 AM EDT Body Mass Index 32.44 02/17/2018 11:22 AM EDT documented in this encounter Progress Notes Cynthia Salgado MD - 02/17/2018 11:15 AM EDT Images from the original note [...] color, darker and become elevated Seen by auto transmission technician in February 2017, no bleeding no itching [...] HISTORY: The patient is here to review surveillance CT results for her stage IIIa melanoma. She is overall is feeling well. She reports that she began having some pain near a varicose vein in his left leg in Nov. OSH US in January revealed superficial thrombophlebitis. She was seen by her PCP for this and she will be seeing a vein specialist in early March. Her energy level is overall good. 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 She denies CP, SOB, cough, fever or chills. She denies n/v/d/c. She denies DUMONT, change in vision, or neuropathy. She is following with dermatology and surgery, last seen in January. REVIEW OF SYSTEMS: Constitutional: No weight loss, no fever, no fatigue, No dizziness. No headache. Eyes: Negative, no visual change ENT: No hearing change Cardiovascular: Negative Respiratory: Negative Gastrointestinal: Negative, Genitourinary: Negative Musculoskeletal: No new joint pain Skin: She notes a small on the right mid-back, feels muscular in nature Neurological: Negative, no focal weakness Psychiatric: stable [...] 12.65) performed by Syeda Nair MD at [facility] MAIN OR ??? PRO BX/REMV, LYMPH NODE, DEEP AXILL Left 06/10/2017 BIOPSY OR EXCISION OF LYMPH NODE(S), OPEN, DEEP AXILLARY NODE(S) (WRVU 6.43) performed by Syeda Nair MD at [facility] MAIN OR ??? PRO EXC SKIN MALIG 3.1-4CM TRUNK, ARM, LEG N/A 06/10/2017 EXC MALIGNANT LESION, MINGO 3.1 TO 4.0CM, TRUNK (WRVU 3.17) performed by Syeda Nair MD at [facility] MAIN OR ??? PRO INTRAOP SENTINEL LYMPH ID W/DYE INJECTION N/A 06/10/2017 INTRAOPERATIVE ID (MAPPING) SENTINEL LYMPH NODE,INCLUDES INJECTION (WRVU 2.5) performed by Syeda Nair MD at [facility] MAIN OR ??? TONSILLECTOMY MEDS: No current outpatient prescriptions on file. No current facility-administered medications for this visit. ??? iohexol (OMNIPAQUE) 350 mg/mL solution 50 mL ALLERGY: No Known Allergies FAMILY HX: No [...] distress. in good mood and spirits BP 135/76 (Patient Position: Sitting) Pulse 67 Temp 36.6 ??C (97.9 ??F) (Temporal) Resp 15 Ht 167.6 cm (5' 6) Wt 91.2 kg (201 lb) SpO2 100% BMI 32.44 kg/m2 Eyes: Not icteric, not injected Oral: clear. Neck: Supple. No lymphadenopathy. Lungs: Bilaterally clear to auscultation, No wheezing, No crackles Heart: Regular rate and rhythm. Abdomen: Soft, no tenderness, no mass, normal active bowel sounds. Extremities: No edema, there is a palpable lump on the left [place] associated with spiders and varicose veins. Skin: No rash, a small lump is noted on the right mid-back, feels muscular in nature Neuro: No focal weakness LABS: Unremarkable CBCD and CMP LDH 203 IMAGING STUDIES: 02/17/2018 CT Scan: No local recurrence or [...] left axillary sentinel sentinel node resected on 06/10/2017 BRAF mutation V600E positive The significance and natural course ofstage III melanoma were reviewed again. Surveillance CT scan today is negative for recurrence. She has a small palpable lump on her right mid-back that is not visible on CT and appears muscular in nature thus we will follow. Asked to call if she notes any changes in the area. She will continue to follow with dermatology last in January. She will continue to follow with Dr. Nair in 3 month with ultrasound. She will return to medical oncology clinic in 6 months with PET/CT and labs. Pt was instructed to call our clinic with any new symptom or any questions. This patient was examined and discussed with my attending physician Dr. Juan David Coleman. Cynthia Salgado M.D. Hematology and Oncology Fellow ATTENDING NOTE: Clinically she is doing well except left anterior [place] sub-cutaneous hematoma/varicose vein. Restaging CT scan result is encouraging. I reviewed images by myself. As long as she remains stable we will bring her back in 6 month with PET/CT scan. I have seen and examined the patient by myself with Dr. Salgado and agree with the above plans described. Juan David Coleman MD documented in this encounter Plan of Treatment Not on filedocumented as of this encounter Results (ABNORMAL) Lactate Dehydrogenase (02/07/2019 7:11 AM EDT) athologist Signature LDH 226 (H) 110 - 220 [facility] unit/L [facility] Specimen Anatomical Collection Method Collection Time Receive d Time (Source) Location / / Volume Laterality Blood specimen 02/07/2019 7:11 AM 019 7:19 (specimen) EDT AM EDT Resulting Agency Comment Spec In Lab Juan David Coleman MD CHEMISTRY ORDERABLES Performing Organization Address City/State/[place] [address] (ABNORMAL) Comprehensive metabolic panel (non-fasting) (02/07/2019 7:11 AM EDT) athologist Signature Glucose Lvl 93 65 - 199 [facility] mg/dL [facility] Comment: Diabetes: >=200 mg/dL plus symp toms BUN 21 (H) 8 - 18 mg/dL [facility] Creatinine 0.85 0.70 - 1.20 mg/dL [facility] Sodium 144 135 - 145 mmol/L [facility] Potassium 4.1 3.5 - 5.0 mmol/L [facility] Comment: Please note: ??Patients with WBC >100,00 0 may have falsely elevated Potassium levels. ??For accurate Potassium quantif ication in these patients send serum separator tube (gold top) for subsequent determinations. ??Contact the Clinical Chemistry Laboratory if there are any qu estions. Chloride 105 98 - 107 mmol/L [facility] CO2 25 22 - 31 mmol/L [facility] Anion Gap 14 5 - 15 mmol/L [facility] Calcium 10.0 8.5 - 10.5 mg/dL [facility] Total Protein 7.1 6.1 - 8.0 gm/dL [facility] Albumin 4.2 3.2 - 5.2 gm/dL [facility] AST 22 0 - 30 unit/L [facility] ALT 20 0 - 30 unit/L [facility] Alk Phos 76 40 - 104 unit/L [facility] Total Bilirubin 0.2 0.2 - 1.3 mg/dL [facility] Estimated GFR 76 >=60 mL/min/1.73 m?? [facility] Comment: The eGFR was calculated using the CKD-EP I equation. As with all creatinine based estimates of kidney function, eGFR values calculated with the CKD-EPI equation are not accurate in patients wi th acute kidney failure, extremes of body mass or the acutely ill. http://ScrollMotion/DHMCnkf eGFR 88 >=60 mL/min/1.73 m?? [facility] Comment: The eGFR was calculated using the CKD-EP I equation. As with all creatinine based estimates of kidney function, eGFR values calculated with the CKD-EPI equation are not accurate in patients wi th acute kidney failure, extremes of body mass or the acutely ill. 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
--- OUTSIDE RECORDS SUMMARY | 2022-05-08 01:05 | XMS_ITS | Encounter Summary ---
:1960 Author Organization [facility] [place] [address] Care Team Providers Name Role Phone Loren Cortez APRN Primary Care Provider [phone] Reason for Visit Reason Comments Skin Lesion Consultation (Routine) - Specialty Diagnoses / Procedures Referred By Contact Refer red To Contact Dermatology Diagnoses Disorder of the skin and subcutaneous tissue, unspecified Loren Cortez, Htr Dermatology Procedures Skin Lesion DATA WAREHOUSING ENGINEER [address] [place] [address] [place] [address] Referral ID Status Reason Start Date Expiration Date Visits V isits Requested Authorized [id number] 04/19/2017 04/19/2018 1 1 Encounter Details Date Type Department Care Team Description 05/06/2017 Office Visit Dermatology at Nusrat Keith i, MD [facility] [address] [place] [address] Seborrheic keratosis; Road Gill Villagran PA [facility] [address] [place] [address] Melanoma of back [address] [place] [address] Social History Tobacco Use Types Packs/Day Years Used Date Never Smoker Sex Assigned at Date Recorded Not on file documented as of this encounter Patient Instructions Patient InstructionsAnnemarie Graff - 05/06/2017 9:00 AM EDT Treatment and Wound Care Instructions Your treatment today: You have had a shave biopsy of your skin, which is a removal of tissue for examination under a microscope. This wound will heal without stitches. Allow 3-6 weeks for the wound to heal. If bleeding occurs, hold firm pressure against the wound for 15 minutes. If bleeding continues, calls the office or go to your local emergency room. Please allow 1-2 weeks for the biopsy results to return. Your physician or nurse will contact you with the results by phone or letter; follow-up will be discussed at that time. Wound Care Instructions: You will need to keep the dressing placed over the wound dry and intact for 24 hours. Afterwards, perform the following wound care daily: ?? Wash your hands before changing the dressing. ?? Remove the bandage and clean the area with mild soap and water, then gently pat the area dry. ?? Apply a small amount of Vaseline to the area, then cover the wound with a band-aid. Change your dressing daily until the wound is fully healed. ?? A small amount of yellow drainage is part of normal healing. The area might appear as a small depression with redness around the edge of the wound. This is normal. ?? Please contact the office you you notice any of the following signs of infection: increased tenderness, pain, drainage, or redness that becomes hot or hard around the wound. If you have further questions or concerns, please call the office at [phone]. If it is after 5PM, or a holiday or weekend, please call [phone] and ask for the Precise Winder on-call. documented in this encounter Progress Notes Gill Villagran PA - 05/06/2017 9:00 AM EDT Images from the original note were not included. DERMATOLOGY - NEW PATIENT CONSULT NOTE Date of service: 05/06/2017 Rosa Shah : 1960 Dermatology Physician C Software Engineer Note: Gill Villagran PA-C Chief Complaint Patient presents with ??? Skin Lesion Ms. oRsa Shah is a 56 y.o. female. This is a new patient to me and to the clinic. Seen in consultation at the request of Loren Cortez specifically for the evaluation and management of the above problem. HPI: Ms. Shah presents for 2 concerning lesions on her back that she has had for many years however they have changed in color and shape over the last 2-3 months. Skin History: none Family History: Melanoma: none Medical History: There is no problem list on file for this patient. Medications: No current outpatient prescriptions on file. No current facility-administered medications for this visit. Allergies: No Known Allergies Procedure screening: Allergies to lido/epi: no Defibrillator: no Review of Systems: General: Feels well Skin: As per HPI; no other skin concerns Examination: - Constitutional: Patient was alert, well-appearing and in no noticeable distress. - Skin: An abbreviated skin exam was performed; this includes the back - Skin Type: 2 Specific skin findings/Diagnosis/Assessment/Treatment Plan: 1. Melanoma with likely nodular component - Mid low back 5cm left of midline: 1.4 x 1cm dark brown/black plaque with blue romero veil at center, radial streaming and pseudopods at periphery. - Recommend excisional biopsy to determine accurate depth of lesion. Appointment scheduled for 1:30pm today w/ Dr. Danielle Franco. Will also plan to check for LAD at that time - Briefly discussed dx, natural hx, prognosis; potential staging and treatments to follow including WLE and SLNBx depending on depth. - Advised need for full skin check in 3 mo; increased risk of additional MM in the first 5 years 2. Seborrheic keratosis - left lateral back: 0.4cm brown papule with waxy, stuck-on appearance. Milia-like cyst, comedone-like openings and/or fissuring on dermoscopy. - Patient reassured of benign nature. - Advised patient to call if areas become inflamed or irritated. Pictures (Picture(s) taken and charted w/ pt consent): Figure 1 LOS: [id number] Pending pathology. Call or return to clinic prn if these symptoms worsen or fail to improve as anticipated. Note initiated by SOHAN BRAVO, Clinical Scribe - I am documenting this encounter acting as the scribe for and in the presence of Gill Villagran PA-C I performed the above scribed service and agree with the accuracy of the documentation in this encounter. Reviewed and signed by Gill Villagran PA-C Dermatology [facility] Patient seen with direct supervision of Attending Physician: Grayson Alcala MD Section of Dermatology [facility] A copy of this report has been sent to the referring provider either by electronic messaging or by fax. We appreciate you allowing us to join in the care of your patient. To help expedite future referrals, we have included some tips below for your reference. We have created guidelines for our scheduling team for prioritizing referrals. By adhering to these guidelines and referral process requests, we feel we can do a better job meeting your needs. Please note that the following lists are simply guidelines and are subject to change based on your clinical exam. MOST Urgent (need to be seen within 48-72 hours) *Call our Consult Medical Consultant to schedule at [phone] ??? New or changing pigmented lesion ??? Eruptive rash (new/concerning) ??? Ruptured cyst ??? Bullous dermatoses (blisters/ blistering rash) ??? Ulcerated hemangioma SEMI Urgent (need to be seen within 2 weeks) *Enter referral in eDH as ???Urgent?? or ???DANDY? Eczema and psoriasis flares /dermatitis ??? Skin lesions concerning for non-melanoma skin cancer ??? Hemangioma LEAST Urgent (next available appointment) *Enter referral in eDH as ???Routine? Chronic rash ??? Cosmetic concerns (including skin tags) ??? Onychomycosis and other nail complaints ??? Cysts ??? Acne ??? Alopecia ??? Actinic keratosis ??? Warts/molluscum ??? moran We hope you will work with us to educate mutual patients on these expected timelines. We feel that this process will help us see the right patients at the right time. Grayson Alcala MD - 05/06/2017 9:00 AM EDT Patient seen in conjunction with CHRISTINE Vogel-C Likely melanoma on the back - will have excision with narrow margins today with Dr. Franco. Discussed likely need for SLNB Follow up plan based on pathology staging Signed by: GRAYSON ALCALA MD Section of Dermatology [facility] documented in this encounter Plan of Treatment Not on filedocumented as of this encounter Visit Diagnoses Diagnosis Seborrheic keratosis Other seborrheic keratosis Melanoma of back Malignant melanoma of skin of trunk, exc ept scrotum documented in this encounter Care Teams Aquatics Lifeguard Relationship Specialty Start Date End Date Loren Cortez APRN PCP - General Family Medicine 05/06/17 [address] [place] [address] documented as of this encounter
--- OUTSIDE RECORDS SUMMARY | 2022-05-08 01:05 | XMS_ITS | Encounter Summary ---
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 Syeda Nair Shirai, Keisuke, MD Oncology MD [facility] Danielle Larose DR [facility] HEMAT[facility]Y/[place] [address] [place] [address] Phone: Fax: Referral ID Status Reason Start Date Expiration Date Visits V isits Requested Authorized [id number] Closed Consult, 06/22/2017 06/22/2018 1 1 Test & Treat Diagnostic Test (Routine) - Closed Specialty Diagnoses / Procedures Referred By Contact Refer red To Contact Radiology Diagnoses 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 Syeda Nair MD [facility] Rad Mri Procedures MRI Brain wwo Contrast (Generic) [facility] [place] [address] [place] [address] Referral ID Status Reason Start Date Expiration Date Visits V isits Requested Authorized [id number] Closed Specialty 08/06/2017 09/20/2017 1 1 Service Requested Diagnostic Test (Routine) - Specialty Diagnoses / Procedures Referred By Contact Refer red To Contact Radiology Diagnoses 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 Syeda Nair MD [facility] Rad Nuclear Med Procedures PET CT Standard Plus Extremities & Head [facility] [place] [address] [place] [address] Fax: Referral ID Status Reason Start Date Expiration Visits Visits Date Requested Authorized [id number] Specialty 08/11/2017 09/10/2017 2 2 Service Requested Encounter Details Date Type Department Care Team Description 06/22/2017 Telephone General Surgery at [facility] Syeda Nair MD [facility] [place] [address] GENERAL SURGERY [phone] [place], [place] [address] (Wo rk) Social History Tobacco Use Types Packs/Day Years Used Date Never Smoker Smokeless Tobacco: Never Used Alcohol Use Standard Drinks/Week Comments Yes 1 (1 standard drink = 0.6 oz pure alcoho l) Sex Assigned at Date Recorded Not on file documented as of this encounter Miscellaneous Notes Telephone Encounter - Syeda Nair MD - 06/22/2017 1:32 PM EDT Called patient to discuss path results. No residual melanoma on her back. 1/3 SLN in left axilla with rare cells suspicious for micrometastasis. We discussed the signficance of these cells and to be conservative we would call these positive, and therefore stage III melanoma allowing closer surveillance. We discussed PET CT, brain MRI, and consultation with melanoma oncology, Dr Coleman. Will present at melanoma next week. Overall patient is doing well post op. Only complaining of some discomfort in the axilla. Plan to see me in follow up on 07/09/17 CVA documented in this encounter Plan of Treatment Scheduled Referrals Name Type Priority Associated Order Schedule Diagnoses Referral to Outpatient Referral Routine Metastatic melanoma O rdered: Hematology and to lymph node 06/22/2017 Oncology documented as of this encounter Results PET CT [...] metastases. Thank you for referring this patient [facility]. Preliminary report signed by: Ta Garcia at 08/17/2017 3:57 PM I have personally reviewed the image(s) and the residents interpretation and agree with the findings, Flakito Jarrell at 08/17/2017 4:13 PM Narrative 08/17/2017 4:13 PM EST EXAMINATION: PET CT STANDARD PLUS EXTREMITIES AND HEAD CLINICAL HISTORY: stage III melanoma. Ru le out metastasis. TECHNIQUE: Procedure: Following IV injec tion of 19-pmzyja-1-deoxyglucose (FDG) a standard uptake of approximately 60 [...] TECHNIQUE: Procedure: Following IV injec tion of 20-ferpuy-2-deoxyglucose (FDG) a standard uptake of approximately 60 [...] metastases. Thank you for referring this patient [facility]. Preliminary report signed by: Ta Garcia at 08/17/2017 3:57 PM I have personally reviewed the image(s) and the residents interpretation and agree with the findings, Flakito Jarrell at 08/17/2017 4:13 PM Syeda Kaminski MD IMG PET ORDERABLES MRI Brain wwo Contrast (Generic) (08/17/2017 12:51 [...] unspecified documented in this encounter Care Teams Hand Candy Molder Relationship Specialty Start Date End Date Loren Cortez APRN PCP - General Family Medicine 05/06/17 [address] [place] [address] documented as of this encounter
--- OUTSIDE RECORDS SUMMARY | 2022-05-08 01:05 | XMS_ITS | Encounter Summary ---
:1960 Author Organization [facility] [place] [address] Care Team Providers Name Role Phone Loren Cortez MARINE Primary Care Provider [phone] Reason for Visit Auth/Cert Specialty Diagnoses [...] Expiration Date Visits Requ ested Visits Authorized [id number] 1 1 Encounter Details Date Type Department Care Team Description 06/10/2017 [facility] [address] [address] [place] [address] [phone] (Wo rk) Social History Tobacco Use Types [...] on filedocumented in this encounter Care Teams Steel Rod Buster Relationship Specialty Start Date End Date Loren Cortez APRN PCP - General Family Medicine 05/06/17 [address] [place] [address] documented as of this encounter
--- OUTSIDE RECORDS SUMMARY | 2022-05-08 01:05 | XMS_ITS | Encounter Summary ---
:1960 Author Organization [facility] [place] [address] Care Team Providers Name Role Phone DelbertLoren bob MARINE Primary Care Provider [phone] Reason for Visit Auth/Cert Specialty Diagnoses [...] Expiration Date Visits Requ ested Visits Authorized [id number] 1 1 Encounter Details Date Type Department Care Team Description 06/10/2017 Hospital Encounter Same Day Program at [facility] Abbott Mary Hitchcock MD [facility] [place] [address] [place] [address] [phone] Social History Tobacco Use Types Packs/Day Years Used Date Never Smoker Smokeless Tobacco: Never Used Alcohol Use Standard Drinks/Week Comments Yes 1 (1 standard drink = 0.6 oz pure alcoho l) Sex Assigned at Date Recorded Not on file documented as of this encounter Last Filed Vital Signs Vital Sign Reading Time Taken Comments Blood Pressure 139/77 06/10/2017 7:56 PM EDT Pulse 68 06/10/2017 1:27 PM EDT Temperature 36.1 ??C (97 ??F) 06/10/2017 6:14 PM EDT Respiratory Rate - - Oxygen Saturation 94% 06/10/2017 8:00 PM EDT Inhaled Oxygen Concentration - - Weight - - Height - - Body Mass Index - - documented in this encounter Discharge Instructions Discharge InstructionsEden Millan RN - 06/10/2017 6:24 PM EDT POST [...] Dr. Abbott in 2-3 weeks Please call [phone] to confirm date and time of your appointment if you do not hear from us in the week. Future Appointments Date Time Provider Department Center 07/09/2017 8:45 AM Syeda Abbott MD [facility] 08/17/2017 4:30 PM Carline Franco MD [facility] For suture removal: Please call the general [...] opioid pain medications) Phone number for questions: [phone] before 5 PM weekdays [phone] after 5 PM and on weekends/holidays documented [...] Abbott MD - 06/10/2017 6:03 PM EDT [facility] [place] Patient Name: Rosa Shah : [id number] MR#: [id number] Case Date: 06/10/2017 Surgeon: Surgeon(s) and Role: [...] performed pursuant to and in compliance with [facility] operative policies.She was positioned in the right [...] Operative Note Patient Name: Rosa Shah : [id number] MR#: [id number] Case Date: 06/10/2017 Surgeon: Surgeon(s) and Role: [...] PM 7 5:40 EDT PM EDT Narrative [facility] - 06/10/2017 5:40 PM EDT Specimen requisition ordered. ??Separate Pathology report to follow Syeda Kaminski MD PATHOLOGY/CYTOLOGY ORDERABLE S Performing Organization Address City/[facility] [place] [address] Specimen to Pathology (surgical or derm) (06/10/2017 5:19 PM EDT) Specimen Anatomical Collection Method Collection Time Receive d Time (Source) Location / / Volume Laterality AP Specimen 06/10/2017 5:19 PM 7 5:19 EDT PM EDT Narrative [facility] - 06/10/2017 5:19 PM EDT Specimen requisition ordered. ??Separate Pathology report to follow Syeda Kaminski MD PATHOLOGY/CYTOLOGY ORDERABLE S Performing Organization Address City/[facility]/[place] [address] Specimen to Pathology (surgical or derm) (06/10/2017 5:17 PM EDT) Specimen Anatomical Collection Method Collection Time Receive d Time (Source) Location / / Volume Laterality AP Specimen 06/10/2017 5:17 PM 7 5:17 EDT PM EDT Narrative [facility] - 06/10/2017 5:17 PM EDT Specimen requisition ordered. ??Separate Pathology report to follow Syeda Kaminski MD PATHOLOGY/CYTOLOGY ORDERABLE S Performing Organization Address City/[facility] [place] [address] Specimen to Pathology (surgical or derm) (06/10/2017 4:16 PM EDT) Specimen Anatomical Collection Method Collection Time Receive d Time (Source) Location / / Volume Laterality AP Specimen 06/10/2017 4:16 PM 7 4:16 EDT PM EDT Narrative [facility] - 06/10/2017 4:16 PM EDT Specimen requisition ordered. ??Separate Pathology report to follow Syeda Kaminski MD PATHOLOGY/CYTOLOGY ORDERABLE S Performing Organization Address City/State/ZIP Code Phon e Number [facility] [place] [address] Surgical Pathology Report (06/10/2017 4:15 PM EDT) Component Value Ref Test Analysis Performed At [facility] Range Method Time Signature Surgical [id number] ? Location: [facility]; [facility]; [facility] Report The signing pathologist has (i) examined the relevant preparation(s) for the MEMORIAL specimen(s) and (ii) rendered or confirmed the diagnosis(es) . HOSPITAL LABORATORY . ? Addendum ADDENDUM DISCUSSION The melanoma gene panel has been ordered on the prior sample ([id number]). Electronically signed by: ??Amador Grant MD Verified: ??06/22/2017 ?Dermatopathologist ?Surgic al Pathology DIAGNOSIS A. Left mid back melanoma, excision: - Negative for residual melanoma - Dermal scar and procedure site changes B. Left axillary sentinel node #1: - Rare enlarged MelanA/[id number] intraparenchymal radha ls suspicious for micrometastatic melanoma [...] (2) 9 o 'clock tip; (3) a treasury representative section between the scar an d 3 o ??'clock tip; (4-5) treasury representative section between the scar and 9 o [...] Organization Address City/State/[place] [address] documented in this encounter [...] Day of Surgery (Day of Procedure), Routine HYDROmorphone (DILAUDID) syringe 0.2-0.4 mg Given [...] Given 06/10/2017 6:22 PM EDT 0.4 mg ondansetron (ZOFRAN-ODT) 8 mg oral Given 06/10/2017 7:45 PM EDT 8 mg disintegrating tablet 1 dose, Starting on Lucy 06/10/17 at 1942, Until Lucy 06/10/17 at 194, EDEN MILLAN: cabinet override prochlorperazine (COMPAZINE) 10 mg/2 mL (5 mg/mL) injection 1 dose, Starting on Lucy 06/10/17 at 2035, Until Lucy 06/10/17 at 2044, ALEXSANDRA CARRERA: cabinet override prochlorperazine (COMPAZINE) injection 5 mg Given 06/10/2017 8:45 PM EDT 5 mg 5 mg, Intravenous, EVERY 30 MIN PRN, 2 doses, Starting on Lucy 06/10/17 at 2037, Until Lucy 06/10/17 at 2255, Nausea, May repeat 5 mg once in [...] (COMPLETED) 1328 (Given - Provider: Donita Ngo, EAV) 1,000 mg, Oral, ONCE, 1 dose, Lucy [...] with 1% lidocaine.) ONCE PRN, Starting Lucy 06/10/17 at 1702, U ntil Lucy 06/10/17 at 2256, Intra-Operative (Intra-Procedure), Routine HYDROmorphone (DILAUDID) syringe 0.2-0.4 mg (CANCELED) 182 (Given - Provider: Eden Millan, EVA)183 (Given - Provider: Eden Millan RN) 0.2-0.4 mg, Intravenous, EVERY 5 MIN [...] with 0.5% bupivacaine.) ONCE PRN, Starting Lucy 06/10/17 at 1703, U ntil Lucy 06/10/17 at 2256, Intra-Operative (Intra-Procedure), Routine methylene blue 5 mg/mL (0.5 %) injection (CANCELED) 1807 (Given - Provider: Syeda Kaminski MD) ONCE PRN, Starting Lucy 06/10/17 at 1808, U ntil Lucy 06/10/17 at 2256, Intra-Operative (Intra-Procedure), Routine prochlorperazine (COMPAZINE) injection 5 mg 2044 (Given - Provider: Alexsandra Carrera RN) 5 mg, Intravenous, EVERY 30 MIN PRN, 2 d oses, Starting Lucy 06/10/17 at 2038, Until Lucy 06/10/17 at 2256, Nausea, May repeat 5 mg once in 30 minutes. If multiple antiemetics ordered, use ondansetron first and if ineffective use prochlorperazine second and if ineffective use promethazine, PACU Recovery, Routine promethazine (PHENERGAN) injection 6.25 mg (CANCELED) 2020 (Given - Provider: Alexsandra Carrera RN) 6.25 mg, Intravenous, EVERY 30 MIN PRN, [...] 1835, Unt il 06/11/17 at 0644, EDEN MILLAN: cabinet override ondansetron (ZOFRAN-ODT) 8 mg oral disintegrating tablet (COMPLE KIRILL) 1944 (Given - Provider: Eden Millan RN) 1 dose, Starting Lucy 06/10/17 at 1942, Unt il Lucy 06/10/17 at 1945, EDEN MILLAN: cabinet override documented in this encounter Care Teams Bioinformatics Programmer Relationship Specialty Start Date End Date Loren Cortez APRN PCP - General Family Medicine 05/06/17 [address] [place] [address] documented as of this encounter
--- OUTSIDE RECORDS SUMMARY | 2022-05-08 01:05 | XMS_ITS | Encounter Summary ---
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, unspecified lymph node [place] [address] HEMATOLOGY/ONCOLOG [phone] Y DEPT [place], [place] [address] Social History Tobacco Use Types Packs/Day Years Used Date Never Smoker Smokeless Tobacco: Never Used Alcohol Use Standard Drinks/Week Comments Yes 1 (1 standard drink = 0.6 oz pure alcoho l) Sex Assigned at Date Recorded Not on file documented as of this encounter Plan of Treatment Scheduled Orders Name Type Priority Associated Diagnoses Order S chedule Specimen to Pathology Pathology/Cytol STAT Malignant melano ma of Ordered: Additional Testing ogy torso excludi ng breast 07/08/2017 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
--- OUTSIDE RECORDS SUMMARY | 2022-05-08 01:05 | XMS_ITS | Encounter Summary ---
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 Syeda Nair Shirai, Keisuke, MD Oncology [facility] [address]le [address] GENERAL SURGERY HEMATOLOGY/[place] [address] [place] [address] Phone: Fax: Referral ID Status Reason Start Date Expiration Date Visits V isits Requested Authorized [id number] Closed Consult, 06/22/2017 06/22/2018 1 1 Test & Treat Encounter Details Date Type Department Care Team Description 07/09/2017 Office Visit Hematology and Juan David Coleman Malignant melanoma of torso excluding breast (Primary Dx); [place] [facility] [place]ignant neoplasm metastatic to lymph n odes, unspecified lymph node region [facility] [address] [place] HEMATOLOGY/ONCOLOG [address] Y DEPT [phone] [place], [place] [address] Social History Tobacco Use Types Packs/Day Years Used Date Never Smoker Smokeless Tobacco: Never Used Alcohol Use Standard Drinks/Week Comments Yes 1 (1 standard drink = 0.6 oz pure alcoho l) Sex Assigned at Date Recorded Not on file documented as of this encounter Last Filed Vital Signs Vital Sign Reading Time Taken Comments Blood Pressure 125/77 07/09/2017 3:19 PM EDT Pulse 65 07/09/2017 3:19 PM EDT Temperature 36 ??C (96.8 ??F) 07/09/2017 3:19 PM EDT Respiratory Rate 16 07/09/2017 3:19 PM EDT Oxygen Saturation 100% 07/09/2017 3:19 PM EDT Inhaled Oxygen Concentration - - Weight 89.2 kg (196 lb 9.6 oz) 07/09/2017 3:19 PM EDT Height 167.6 cm (5' 6) 07/09/2017 3:19 PM EDT Body Mass Index 31.73 07/09/2017 3:19 PM EDT documented in this encounter Progress Notes Juan David Coleman MD - 07/09/2017 3:15 PM EDT Images from the original note were not included. INITIAL VISIT [facility] NOTE REFERING PHYSICIAN: Dr. Syeda Nair [...] color, darker and become elevated Seen by channel lip wetter in February 2017, no bleeding no itching [...] clinic on 07/09/2017 to discuss follow-up options. HPI: Mrs. Shah is 57 years old lady with the above medical history referred to melanoma clinic on 07/09/2017 to discuss follow-up options for her stage IIIa left lower back melanoma. The patient is recuperating fairly well from surgery. No limitation in her [...] 12.65) performed by Syeda Nair MD at [facility] OR ??? PRO BX/REMV, LYMPH NODE, DEEP AXILL Left 06/10/2017 BIOPSY OR EXCISION OF LYMPH NODE(S), OPEN, DEEP AXILLARY NODE(S) (WRVU 6.43) performed by Syeda Nair MD at [facility] OR ??? PRO EXC SKIN MALIG 3.1-4CM TRUNK, ARM, LEG N/A 06/10/2017 EXC MALIGNANT LESION, MINGO 3.1 TO 4.0CM, TRUNK (WRVU 3.17) performed by Syeda Nair MD at [facility] ??? PRO INTRAOP SENTINEL LYMPH ID W/DYE INJECTION N/A 06/10/2017 INTRAOPERATIVE ID (MAPPING) SENTINEL LYMPH NODE,INCLUDES INJECTION (WRVU 2.5) performed by Syeda Nair MD at [facility] ??? TONSILLECTOMY MEDS: None ALLERGY: [...] distress. in good mood and spirits BP 125/77 (Patient Position: Sitting) Pulse 65 Temp 36 ??C (96.8 ??F) (Temporal) Resp 16 Ht 167.6 cm (5' 6) Wt 89.2 kg (196 lb 9.6 oz) SpO2 100% BMI 31.73 kg/m2 Eyes: Not icteric, not injected Oral: clear. Neck: Supple. No lymphadenopathy. Lungs: Bilaterally clear to auscultation, No wheezing, No crackles Heart: Regular rate and rhythm. Abdomen: Soft, no tenderness, no mass, normal active bowel sounds. Extremities: No edema. Skin: No rash Neuro: No focal weakness LABS: Unremarkable CBCD and CMP [facility] 194 IMAGING STUDIES: Scheduled brain MRI and PET/CT scan ASSESSMENT AND PLAN: At least stage IIIa left lower back melanoma with IHC positive 1 out of 3 left axillary sentinel sentinel node BRAF mutation V600E positive The significance and natural course ofstage III melanoma were reviewed. The role and concept of active surveillance were discussed with the patient in detail. We will obtain staging scan including PET CT scan and brain MRI. If this is negative, we'll will follow with every 3 month ultrasound and every [address] scan for the first 2 years. I will have the patient come back after staging scans. Pt was instructed to call our clinic with any new symptom or any questions. Thank you very much for referring this nice patient to our medical oncology clinic. Please find my recommendation in above note. Juan David Coleman MD documented in this encounter Plan of Treatment Not on filedocumented as of this encounter Results Lactate Dehydrogenase (07/09/2017 1:42 PM EDT) P athologist Signature [facility] 194 110 - 220 [facility] unit/L [facility] Specimen Anatomical Collection Method Collection Time Receive d Time (Source) Location / / Volume Laterality Blood specimen 07/09/2017 1:42 PM 017 1:56 (specimen) EDT PM EDT Resulting Agency Comment Spec In Lab Juan David Coleman MD CHEMISTRY ORDERABLES Performing Organization Address City/State/[place] [address] Comprehensive metabolic panel (non-fasting) (07/09/2017 1:42 PM EDT) athologist Signature Glucose Lvl 91 65 - 199 [facility] mg/dL [facility] Comment: Diabetes: >=200 mg/dL plus symp toms BUN 15 8 - 18 mg/dL [facility] Creatinine 0.84 0.70 - 1.20 mg/dL [facility] Comment: Please note that the pediatric reference intervals supplied above were not validated at [facility]. Results from pediatri c patients should be interpreted in conjunction to the patient's age, height and muscle mass. Sodium 143 135 - 145 mmol/L [facility] Potassium 4.1 3.5 - 5.0 mmol/L [facility] Comment: Please note: ??Patients with WBC >100,00 0 may have falsely elevated Potassium levels. ??For accurate Potassium quantif ication in these patients send serum separator tube (gold top) for subsequent determinations. ??Contact the Clinical Chemistry Laboratory if there are any qu estions. Chloride 103 98 - 107 mmol/L [facility] CO2 25 22 - 31 mmol/L [facility] Anion Gap 15 5 - 15 mmol/L [facility] Calcium 9.5 8.5 - 10.5 mg/dL [facility] Total Protein 7.5 6.1 - 8.0 gm/dL [facility] Albumin 4.6 3.2 - 5.2 gm/dL [facility] AST 16 0 - 30 unit/L [facility] ALT 14 0 - 30 unit/L [facility] Alk Phos 72 40 - 104 unit/L [facility] Total Bilirubin 0.2 0.2 - 1.3 mg/dL [facility] Estimated GFR >60 >=60 [facility] Comment: This estimated GFR (eGFR) [...] the following links into your internet browser. 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
--- NOTE | 2022-05-08 07:45 | DI.MAMMO_ITS ---
Exam(s) MAMMO SCREENING EXAM: MAMMO SCREENING CLINICAL HISTORY: screening TECHNIQUE: Bilateral full field digital CC and MLO mammographic images were obtained with 3D tomosyn thesis and utilizing computer aided detection (CAD). COMPARISON: Available for comparison. FINDINGS: Masses/Architectural Distortion: None seen. Microcalcifications: No suspicious pleomorphic-type are seen. Skin Thickening/Nipple Retraction: None. IMPRESSION: 1. No significant interval change with no specific features of malignancy noted. 2. Unless there is more urgent need, screening mammography is recommended, as per [employer] guidelines. BI-RADS Category 1 - Negative Breast Density - Category B - Scattered areas of fibroglandular density Breast density category C or D implies that the patient has dense breast tissue. Dense breast tissue is very common and is not abnormal but dense breast tissue can make it harder to find cancer on a ma mmogram. Also, dense breast tissue may increase their breast cancer risk. This information about the result of the mammogram report was provided to the patient to raise their awareness. Use this report when you speak with the patient about their risks for breast cancer, which includes their family hist ory. At that time, you may recommend for more screening tests (Ultrasound or MRI) as they might be us eful based on their risk. A negative radiographic report should not delay biopsy if a dominant or clinically suspicious mass is present. Up to ten percent of cancers are not identified on mammography. A negative report may reinforce clinical impression. Adenosis and dense breasts may obscure an underlying neoplasm. False positive reports average 6 to 10%. Patient will receive a letter notifying them of these results.
== END ==
PROVIDERS: PCP Nurse Practitioner Family; Visit Provider Nurse Practitioner Family
DX: Z12.31 Encounter for screening mammogram for malignant neoplasm of breast (principal)
CPT/HCPCS: 77063; 77067

== ENCOUNTER → 2023-08-03 01:26 | Outpatient (CLI) | payer OTHER, SELFPAY ==
--- NOTE | 2023-08-03 16:30 | DI.MAMMO_ITS ---
Exam(s) MAMMO SCREENING EXAM: MAMMO SCREENING CLINICAL HISTORY: screening TECHNIQUE: Mammograms were interpreted according to the usual protocol including computer analysis w [employer] CAD system, tomosynthesis and C-view imaging. COMPARISON: 2016 through 2021 FINDINGS: The breasts are composed of scattered fibroglandular densities, Breast Density category B. No suspicious masses or suspicious microcalcifications are seen. Surgical clips again noted in left axilla. No skin thickening or abnormal axillary lymph nodes are seen. There has been no significant change from prior exams. IMPRESSION: BI-RADS Category 1, Negative mammogram Yearly screening mammography is recommended. Breast Density - Category B, scattered fibroglandular densities. A negative radiographic report should not delay biopsy if a dominant or clinically suspicious mass is present. Up to ten percent of cancers are not identified on mammography. A negative report may reinforce clinical impression. Adenosis and dense breasts may obscure an underlying neoplasm. False positive reports average 6 to 10%. Patient will receive a letter notifying them of these results.
== END ==
PROVIDERS: PCP Nurse Practitioner Family; Visit Provider Obstetrics & Gynecology
DX: Z12.31 Encounter for screening mammogram for malignant neoplasm of breast (principal); R92.323 Mammographic fibroglandular density, bilateral breasts
CPT/HCPCS: 77063; 77067

== ENCOUNTER 2024-08-25 18:45 | Outpatient (REF) | payer OTHER, SELFPAY ==
[2024-08-25 19:40] LABS: ALT 24 U/L (14-59); AST 16 U/L (15-37); Albumin 4.1 g/dL (3.4-5.0); Alkaline Phosphatase 86 U/L (46-116); Anion Gap 11.7 mmol/L (3-11); BUN 20 mg/dL (7-18); Bilirubin, Total 0.33 mg/dL (0.2-1.0); CO2 24.3 mmol/L (21.0-32.0); CREATININE 0.9 mg/dL (0.55-1.02); Calcium 9.2 mg/dL (8.5-10.1); Calculated LDL 142 mg/dL (<100); Chloride 105 mmol/L (98-107); Cholesterol 228 mg/dL (<200); Estimated GFR 71.39 (mL/min/1.73m2); Glucose 89 mg/dL (74-106); HDL Cholesterol 70 mg/dL (40-60); Potassium 4.1 mmol/L (3.5-5.1); Sodium 141 mmol/L (136-145); Total Protein 7.1 g/dL (6.4-8.2); Triglyceride 82 mg/dL (<150)
[2024-08-28 10:16] LABS: HIV-1/2 Ag & Ab Screen Negative (Negative)
[2024-08-28 10:50] LABS: Hepatitis C Ab w Rflx HCV PCR Negative (Negative)
[2024-08-28 12:42] LABS: HBs Antibody, Quant <3.1 mIU/mL (See Note); Hep B Surface Ab Negative (See Note); Hepatitis B Core Antibody Negative (Negative); Hepatitis B Surface Antigen Negative (Negative)
== END 2024-08-25 18:46 | disposition home or self-care (01) ==
LOC: LBN 18:45
PROVIDERS: PCP Nurse Practitioner Family; Visit Provider Nurse Practitioner Family
DX: Z13.220 Encounter for screening for lipoid disorders (principal); Z11.4 Encounter for screening for human immunodeficiency virus [HIV]; Z11.59 Encounter for screening for other viral diseases
CPT/HCPCS: 80053; 80061; 86704; 86706; 86803; 87340; 87389

== ENCOUNTER 2024-09-15 00:15 | Outpatient (CLI) | payer OTHER, SELFPAY ==
--- NOTE | 2024-09-15 06:30 | DI.MAMMO_ITS ---
Exam(s) MAMMO SCREENING EXAM: MAMMO SCREENING CLINICAL HISTORY: screening,z12.39. TECHNIQUE: Bilateral full field digital CC and MLO mammographic images were obtained with 3D tomosyn thesis and utilizing computer aided detection (CAD). COMPARISON: Prior mammograms were reviewed. FINDINGS: There has been no significant change in the appearance and distribution of the fibroglandular tissue. Surgical clips are again noted in the left axilla. There are no new spiculated masses nor malignant appearing microcalcification groups. There is no significant architectural distortion nor skin thickening-retraction. IMPRESSION: No radiographic evidence of malignancy. BI-RADS Category 1 - Negative Breast Density - Category B - Scattered areas of fibroglandular density Breast density Category C or D implies that the patient has dense breast tissue. Dense breast tissue can make it harder to find cancer on a mammogram. Dense breast tissue is also associated with an incr eased risk of breast cancer. This information about the result of the mammogram report was provided to the patient to raise their awareness. Use this report when you speak with the patient about their risks for breast cancer, which includes their family history. At that time, you may recommend additional screening tests (Ultrasoun d or MRI) as these tests may add significant information. A negative radiographic report should not delay biopsy if a dominant or clinically suspicious mass is present. Up to ten percent of cancers are not identified on mammography. A negative report may reinforce clinical impression. Adenosis and dense breasts may obscure an underlying neoplasm. False positive reports average 6 to 10%. Patient will receive a letter notifying them of these results.
== END 2024-09-15 00:35 ==
LOC: DI 00:15
PROVIDERS: PCP Nurse Practitioner Family; Visit Provider Nurse Practitioner Family
DX: Z12.31 Encounter for screening mammogram for malignant neoplasm of breast (principal); R92.323 Mammographic fibroglandular density, bilateral breasts
CPT/HCPCS: 77063; 77067

== ENCOUNTER → 2025-09-20 00:32 | Outpatient (CLI) | payer OTHER, SELFPAY ==
--- NOTE | 2025-09-20 09:00 | DI.MAMMO_ITS ---
Exam(s) MAMMO SCREENING EXAM: MAMMO SCREENING CLINICAL HISTORY: screening,12.39 TECHNIQUE: Bilateral full field digital CC and MLO mammographic images were obtained with 3D tomosynthesis and utilizing computer aided detection (CAD). COMPARISON: Comparison is made with prior examinations. FINDINGS: Masses/Architectural Distortion: No suspicious masses or areas of architectural distortion are present. Microcalcifications: No suspicious pleomorphic-type are seen. Skin Thickening/Nipple Retraction: None. IMPRESSION: 1. No significant interval change with no specific features of malignancy noted. 2. Unless there is more urgent need, screening mammography is recommended, as per [place] guidelines. BI-RADS Category 1 - Negative Breast Density - Category B - There are scattered areas of fibroglandular density. Breast density Category C or D implies that the patient has dense breast tissue. Dense breast tissue can make it harder to find cancer on a mammogram. Dense breast tissue is also associated with an increased risk of breast cancer. This information about the result of the mammogram report was provided to the patient to raise their awareness. Use this report when you speak with the patient about their risks for breast cancer, which includes their family history. At that time, you may recommend additional screening tests (Ultrasound or MRI) as these tests may add significant information. A negative radiographic report should not delay biopsy if a dominant or clinically suspicious mass is present. Up to ten percent of cancers are not identified on mammography. A negative report may reinforce clinical impression. Adenosis and dense breasts may obscure an underlying neoplasm. False positive reports average 6 to 10%. Patient will receive a letter notifying them of these results.
--- NOTE | 2025-09-20 11:48 | DI.DEXA_ITS ---
Exam(s) XR DEXA BONE DENSITY W/WO WAN EXAM: XR DEXA BONE DENSITY W/WO WAN CLINICAL HISTORY: screening for osteoporosis,postmenopausal status,z78.0 TECHNIQUE: COMPARISON: No exams were available for comparison FINDINGS: Lateral Spine Image: Unremarkable. No compression deformities identified. Left hip: Total T-Score: -0.8 Total Z-Score: 0.4 T- and Z-scores: There is no evidence of osteoporosis. Lumbar Spine: Total T-Score: -1.4 Total Z-Score: 0.4 T- and Z-scores: Findings are consistent with osteopenia. IMPRESSION: No evidence of osteoporosis.
== END ==
LOC: DI 00:32
PROVIDERS: PCP Nurse Practitioner Family; Visit Provider Nurse Practitioner Family
DX: Z12.31 Encounter for screening mammogram for malignant neoplasm of breast (principal); Z78.0 Asymptomatic menopausal state
CPT/HCPCS: 77063; 77067; 77080